=== PATIENT | female | born 1965 | race Caucasian/White ===

== ENCOUNTER → 2016-08-12 | Outpatient (CLI) | payer BC ==
[~2016-08-12] MED LIST: A-C CARBAMIDE PO; CHOL10003 PO; CRAN1TAB PO; DOXY-233 PO; DULO30CA PO; ESTR1PAT TD; ESTRADIOL CREAM; FAMO-119 PO; FLUD0.1T7 PO; FURO20TA4 PO; HYDR200T46 PO; INSASP10V; LORA1TAB PO; MAGN400C PO; MAGNESIUM PO; METF500T8 PO; METHYL B-12 PO; MIDODRINE 5 MG; MINO100C6 PO; MULT-223 PO; NATURE THROID 32.5 MG PO; NYST1000 PO; ONDA8TAB13 PO; POLY119P5 PO; PREGNENOLONE PO; PROBIOTIC1 EACH PO; PROG100C6 PO; PROP10TA8 PO; TESTOSTERONE; THYROID 32.5 MG PO; TRAM50TA2 PO; UBID1CAP51 PO; UBID200C PO; ZINC PO; [UNRECOGNIZED DRUG - OTHER] PO; [UNRECOGNIZED DRUG - OTHER] PO; [UNRECOGNIZED DRUG - OTHER] PO; [UNRECOGNIZED DRUG - OTHER] PO
--- NOTE | 2016-08-12 12:14 | Diagnostic Imaging Report ---
INDICATION: Neck pain. EXAMINATION: Cervical spine. FINDINGS: AP and lateral views of the cervical spine show normal vertebral body height and alignment. The disc spaces are well-maintained. There is no prevertebral soft tissue swelling. IMPRESSION: Negative cervical spine. Dictated by: Dictated on workstation # [id number]
== END ==
LOC: RAD 11:47
PROVIDERS: ATTEND Nurse Practitioner Family
DX: M54.2 Cervicalgia (principal)
CPT/HCPCS: 72040

== ENCOUNTER → 2016-08-30 | Outpatient (CLI) | payer BC ==
--- NOTE | 2016-08-30 16:20 | Diagnostic Imaging Report ---
PROCEDURE: MR imaging cervical spine without contrast. TECHNIQUE: Multiplanar, multisequence MR imaging of the cervical spine was performed without contrast. INDICATION: Neck pain and bilateral arm numbness. FINDINGS: There is straightening of the cervical spine. The alignment of the posterior spinal line is satisfactory. The vertebral body heights are preserved. The discs demonstrate mild desiccation at all levels. There is no significant disc height loss at any level. The bone marrow signal demonstrates nonspecific minimal heterogeneity with no discrete mass. The spinal cord has normal caliber, contour, and signal. There is a projection of the cerebellar tonsils below the level of the foramen magnum of about 5 mm, compatible with cerebellar tonsillar ectopia. This does not appear to be associated with mass effect on the brainstem or upper cervical spine. C2-C3: No disc herniation, no spinal canal, or foramina stenosis. C3-C4: No disc herniation, and no spinal canal stenosis. The foramina demonstrate mild narrowing only on the right side. C4-C5: There is no disc herniation. No spinal canal or foramina stenosis. C5-C6: There is a disc spur complex without spinal canal stenosis. The foramina demonstrates mild narrowing on the left and no significant narrowing on the right side. C6-C7: There is a left paracentral disc spur complex resulting in mild narrowing of the AP dimension of the left side of the spinal canal and resulting in minimal impression upon the anterior margin of the spinal cord in the left side. There is no foramina stenosis. C7-T1: No disc herniation, and no spinal canal stenosis. There is mild foramina stenosis only on the left side. IMPRESSION: Straightening of the lordotic curvature of the cervical spine could be secondary to muscle spasm. Relatively mild degenerative changes with no high-grade spinal canal stenosis or cord compression. Dictated by: Dictated on workstation # [id number]
== END ==
LOC: RAD 15:14
PROVIDERS: ATTEND Nurse Practitioner Family
DX: M54.2 Cervicalgia (principal); R20.0 Anesthesia of skin
CPT/HCPCS: 72141

== ENCOUNTER → 2016-09-23 | Outpatient (CLI) | payer BC ==
--- NOTE | 2016-09-26 19:01 | Diagnostic Imaging Report ---
Bilateral screening mammogram. The current study was also evaluated with a Computer Aided Detection (CAD) system. INDICATION: Screening. No current complaints stated on the questionnaire. COMPARISON: 09/21/14 FINDINGS: The breasts are composed of heterogeneously dense parenchyma which may decrease mammographic sensitivity. There is no mass, architectural distortion or suspicious cluster of calcification. Allowing for technique and positional differences, no suspicious change is seen. IMPRESSION: No significant change. ACR BI-RADS Category 2: Benign findings. Result letter will be mailed to the patient. Note: At least 10% of breast cancer is not imaged by mammography. Dictated by: Dictated on workstation # [id number]
== END ==
LOC: RAD 10:02
PROVIDERS: ATTEND Nurse Practitioner Family
DX: Z12.31 Encounter for screening mammogram for malignant neoplasm of breast (principal)
CPT/HCPCS: 77067

== ENCOUNTER 2016-10-03 05:33 | Outpatient (CLI) | payer BC ==
[~2016-10-03] VITALS: Ht 175.3 cm; Wt 82.2 kg
[2016-10-03] MEDS ORDERED: MAGN400T39 PO (10:36)
[2016-10-03] MEDS ORDERED: PYRI100T2 PO (10:36)
[2016-10-03] MEDS ORDERED: GING550C4 PO (10:36)
[2016-10-03] MEDS ORDERED: ALPH200C2 PO (10:36)
[2016-10-03] MEDS ORDERED: [UNRECOGNIZED DRUG - CODE] PO (10:36)
[2016-10-03] MEDS ORDERED: THYR32.57 PO (10:36)
[2016-10-03] MEDS ORDERED: CHOL10003 PO (10:36)
[2016-10-03] MEDS ORDERED: ACET500C8 PO (10:36)
[2016-10-03] MEDS ORDERED: HYDR200T PO (10:36)
[2016-10-03] MEDS ORDERED: VITA400C58 PO (10:36)
[2016-10-03] MEDS ORDERED: TEST2.5G6 TD (10:36)
== END 2016-10-03 12:32 ==
LOC: PREOP 05:33
PROVIDERS: ATTEND Surgery
DX: Z01.818 Encounter for other preprocedural examination (principal); Z12.11 Encounter for screening for malignant neoplasm of colon; K64.9 Unspecified hemorrhoids

== ENCOUNTER 2016-10-06 06:11 | Day surgery (SDC) | payer BC ==
[~2016-10-06] VITALS: Ht 175.3 cm; Wt 82.2 kg
[~2016-10-06 06:11] MED LIST changes: +ACET500C8 PO; +ALPH200C2 PO; +GING550C4 PO; +HYDR200T PO; +MAGN400T39 PO; +PYRI100T2 PO; +TEST2.5G6 TD; +THYR32.57 PO; +VITA400C58 PO; +[UNRECOGNIZED DRUG - CODE] PO
[2016-10-06] MEDS ORDERED: fentaNYL INJECTION 100 MCG/2 ML AMP ONE (06:45)
[2016-10-06] MEDS ORDERED: LIDOCAINE PF 2% 5 ML (XYLOCAINE) VIAL ONE (06:45)
[2016-10-06] MEDS ORDERED: ONDANSETRON 4 MG/2 ML (SDV) Z0FRAN ONE ×2 (06:45→10:14)
[2016-10-06] MEDS ORDERED: proPOfol 200 MG/20 ML (DIPRIVAN) VIAL IV ONE ×2 (06:45→08:32)
[2016-10-06] MEDS ORDERED: LACTATED RINGERS 1,000 ML IV ONE ×2 (06:46→10:25)
[2016-10-06] MEDS ORDERED: SEVOFLURANE (ULTANE) 15 ML INHAL SOLN ONE ×5 (06:46→09:33)
[2016-10-06] MEDS ORDERED: MIDAZOLAM 2 MG/2 ML (VERSED) VIAL ONE ×2 (06:47→08:31)
[2016-10-06] MEDS ORDERED: ceFAZolin 2 GM/NS 50 ML IV ONE (07:00)
[2016-10-06] MEDS ORDERED: CATHETER FLUSH 10 ML SYR IV PRN (07:00)
[2016-10-06 07:18] VITALS: BP 120/82
[2016-10-06] MEDS ORDERED: LIDOCAINE 1% INJ 20 ML (XYLOCAINE) VIAL ONE (07:25)
[2016-10-06] MEDS ORDERED: BUPIVACAINE 0.5% 30 ML (SENSORCAINE) VIAL ONE (07:25)
[2016-10-06] MEDS: LACTATED RINGERS 1,000 ML IV PRN ×2 (07:28→10:30)
[2016-10-06] MEDS ORDERED: PHENYLEPHRINE 100 MCG/ML 10 ML (ANESTHESIA) SYR ONE (09:15)
[2016-10-06] MEDS ORDERED: DOCU-143 PO ×2 (09:38→11:23)
[2016-10-06] MEDS ORDERED: HYDR-3812 PO (09:38)
--- NOTE | 2016-10-06 09:39 | Progress Note-Post Operative ---
Post-Operative Progess Note Surgeon (s)/Drive Man (s) Surgeon JOHANNA SALDANA DO Drive Man: na Pre-Operative Diagnosis HEMORRHOIDS Post-Operative Diagnosis normal colonoscopy, external hemorroids Procedure & Operative Findings Date of Procedure 10/06/16 Procedure Performed/Findings colonoscopy, hemorrhoidectomy external x 4 Anesthesia Type per bed operator Estimated Blood Loss Estimated blood loss (mL): minimal Specimens/Packing Specimens Removed external hemorrhoids JOHANNA SALDANA DO Oct 06, 2016 9:39 am
--- NOTE | 2016-10-06 09:44 | Discharge Inst-Simple/Standard ---
Discharge Inst-Standard Patient Instructions/Follow Up Plan of Care/Instructions/FU: Follow up with Dr. Isaac in 2 weeks Take medication as directed. Sitz baths daily. Keep stool loose. shower after bowel movement. Activity as Tolerated: No Discharge Diet: No Restrictions Other Inst to Patient Follow up Appt: Make appointment for 2 weeks. Instructions: No lifting greater than 10 pounds. No strenuous activity. May shower in 24 hours, sitz baths Use incentive spirometer at home as directed. No Smoking Skin/Wound Care: Keep area clean. Symptoms to Report: Appetite Changes, Extremity Discoloration, Numbness/Tingling, Swelling Increased , Bleeding Excessive, Eyesight Changes, Pain Increased, Urine Color Change, Constipation(Persistent), Fever over 101 degree F, Pain/Pressure in chest, Urinating Difficulty, Cough Up/Vomit Blood, Heart Beat Irreg/Pounding, Pain/ Pressure in jaw, Vaginal Bleeding Increase, Cramps in feet or legs, Lightheadedness, Pain/Pressure in shoulder, Diarrhea(Persistent), Memory Changes Suddenly, Questions/Concerns, Weight gain consecutive days, Dizziness/ Fainting, Nausea/Vomiting, Shortness of Breath, Weight gain over 2 pounds If questions or concerns contact your physician Or seek help at emergency department. KEN DAVILA APRN Oct 06, 2016 09:44
[2016-10-06] MEDS ORDERED: morphine INJ 10 MG/ML 1ML (SYR OR VIAL) IVP PRN ×2 (09:45→11:30)
[2016-10-06] MEDS ORDERED: ONDANSETRON 4 MG/2 ML (SDV) Z0FRAN IVP ONE (10:30)
[2016-10-06 10:40] VITALS: BP 123/81
[2016-10-06 11:10] VITALS: BP 119/71
--- NOTE | 2016-10-06 11:30 | OPERATIVE REPORT ---
PROCEDURE PHYSICIAN: JOHANNA SALDANA DATE OF PROCEDURE: 10/06/2016 PREOPERATIVE DIAGNOSIS: 1. Screening colonoscopy. 2. Hemorrhoids. POSTOPERATIVE DIAGNOSIS: 1. Normal colon. 2. External hemorrhoids. PROCEDURE: 1. Colonoscopy. 2. External hemorrhoidectomy x4. SURGEON: Marlin. ANESTHESIA: Per COMPRESSION MOLDING MACHINE OPERATOR. ESTIMATED BLOOD LOSS: Minimal. COMPLICATIONS: None. INDICATIONS: The patient is a 51-year-old female. It was discussed the risks and benefits of colonoscopy and hemorrhoidectomy. The patient has some external hemorrhoids that are causing discomfort and causing difficultly to keep perianal region cleaned. She understands the risks and benefits of the procedure and wished to proceed with the procedure. Consent was signed on the chart. PROCEDURE: The patient was taken to the operating suite. Timeout was performed. Digital rectal exam was performed noting external hemorrhoids. There were no other palpable polyps, masses or ulcerations. The scope was inserted in the rectum, advanced all of the way to the cecum with minimal difficulty. Prep was adequate. The scope was then slowly retracted back. There were no polyps, masses, ulcerations visualized within the cecum, ascending, transverse, descending and sigmoid colon. In the rectum, the scope was attempted to be retroflexed but it was very narrow; therefore, multiple insertions and retractions were made noting no other pathology. The scope was then slowly retracted until completely removed. The patient was then prepped and draped in a sterile fashion for hemorrhoidectomy. The external hemorrhoidal tissue was slightly elevated with graspers. Local anesthetic of 0.5% Marcaine and 1% lidocaine at 50:50 ratio was used to anesthetize the area. Using a Harmonic focus, the hemorrhoids were amputated at the base. The skin was then closed using 3-0 Vicryl. The area was then washed and dried. Gelfoam and Vaseline gauze packing was inserted in the anus and sterile bandage was applied. The patient tolerated the procedure well without any complications. She was taken to recovery room in stable condition. Job ID: [id number] Dictated Date: 10/06/2016 09:42:44 Embroidery Specialist Date: 10/06/2016 11:15:05 / avis
[2016-10-06 11:40] VITALS: BP 111/62
--- OUTSIDE RECORDS SUMMARY | 2016-10-13 02:33 | XMS REPORT | Continuity of Care Document ---
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 ANDREW FRANZ ELECTRICAL INSTALLATION SUPERVISOR Ot 724.4 LUMBOSACRAL NEURITIS NOS 09/24/2015 ANDREW FRANZ ELECTRICAL INSTALLATION SUPERVISOR Ot 625.9 FEM GENITAL SYMPTOMS NOS 09/24/2015 JOHANNA SALDANA DO Ot V72.84 EXAM PRE-OPERATIVE NOS 09/24/2015 ELIA FRANZ DO Ot V76.12 OTH SCREEN MAMMO-MALIGN NEOPLASM OF DMITRY 09/24/2015 ANDREW FRANZ ELECTRICAL INSTALLATION SUPERVISOR Ot 473.9 CHRONIC SINUSITIS NOS 09/24/2015 ANDREW FRANZ ELECTRICAL INSTALLATION SUPERVISOR Ot 787.91 DIARRHEA 09/24/2015 ANDREW FRANZ ELECTRICAL INSTALLATION SUPERVISOR Ot Z12.31 ENCNTR SCREEN MAMMOGRAM FOR MALIGNANT NE 09/25/2015 ANDREW FRANZ ELECTRICAL INSTALLATION SUPERVISOR Ot Z12.31 ENCNTR SCREEN MAMMOGRAM FOR MALIGNANT NE 10/15/2015 ANDREW FRANZ ELECTRICAL INSTALLATION SUPERVISOR Ot Z12.31 ENCNTR SCREEN MAMMOGRAM FOR MALIGNANT NE 12/29/2015 Ot 611.72 LUMP OR MASS IN BREAST 12/29/2015 Ot V76.12 OTH SCREEN MAMMO-MALIGN NEOPLASM OF DMITRY 12/29/2015 Ot 611.72 LUMP OR MASS IN BREAST 12/29/2015 Ot 793.80 UNSPEC ABNORMAL MAMMOGRAM 12/29/2015 Ot 729.5 PAIN IN LIMB 12/29/2015 Ot 793.89 OTH (ABN) FINDINGS ON RADIOLOGICAL EXAMI 12/29/2015 Ot 276.51 DEHYDRATION 12/29/2015 Ot 379.91 PAIN IN OR AROUND EYE 12/29/2015 Ot 781.2 ABNORMALITY OF GAIT 12/29/2015 Ot 784.0 HEADACHE 12/29/2015 Ot 088.81 LYME DISEASE 12/29/2015 Ot 401.9 HYPERTENSION NOS 12/29/2015 Ot V72.63 PRE-PROCEDURAL LABORATORY EXAMINATION 12/29/2015 Ot V72.81 [id number] CARDIOVASCULAR 12/29/2015 Ot V72.83 EXAM PRE-OPERATIVE NEC 12/29/2015 Ot V74.8 SCREEN-BACTERIAL DIS NEC 12/29/2015 Ot 088.81 LYME DISEASE 12/29/2015 Ot V58.69 OT MED,LT,CURRENT USE 12/29/2015 Ot 088.81 LYME DISEASE 12/29/2015 Ot V58.69 OT MED,LT,CURRENT USE 12/29/2015 Ot 088.81 LYME DISEASE 12/29/2015 ELIA FRANZ DO Ot 938 FOREIGN BODY GI NOS 12/29/2015 ELIA FRANZ DO Ot E000.8 OTHER EXTERNAL CAUSE STATUS 12/29/2015 ELIA FRANZ DO Ot E849.0 ACCIDENT IN HOME 12/29/2015 ELIA FRANZ DO Ot E915 FB ENTERING OTH ORIFICE 12/29/2015 ELIA FRANZ DO Ot 936 FB IN INTESTINE COLON 12/29/2015 ELIA FRANZ DO Ot E000.8 OTHER EXTERNAL CAUSE STATUS 12/29/2015 ELIA FRANZ DO Ot E849.0 ACCIDENT IN HOME 12/29/2015 ELIA FRANZ DO Ot E915 FB ENTERING OTH ORIFICE 12/29/2015 ANDREW HOOPER ELECTRICAL INSTALLATION SUPERVISOR Ot 936 FB IN INTESTINE COLON 12/29/2015 ANDREW HOOPER A ELECTRICAL INSTALLATION SUPERVISOR Ot E000.8 OTHER EXTERNAL CAUSE STATUS 12/29/2015 ANDREW HOOPER A ELECTRICAL INSTALLATION SUPERVISOR Ot E849.0 ACCIDENT IN HOME 12/29/2015 ANDREW HOOPER ELECTRICAL INSTALLATION SUPERVISOR Ot E915 FB ENTERING OTH ORIFICE 12/29/2015 ELIA FRANZ DO Ot 937 FOREIGN BODY ANUS/RECTUM 12/29/2015 ELIA FRANZ DO Ot E000.8 OTHER EXTERNAL CAUSE STATUS 12/29/2015 ELIA FRANZ DO Ot E849.0 ACCIDENT IN HOME 12/29/2015 ELIA FRANZ DO Ot E915 FB ENTERING OTH ORIFICE 12/29/2015 ELIA FRANZ DO Ot 790.7 BACTEREMIA 12/29/2015 ELIA FRANZ DO Ot 790.7 BACTEREMIA 12/29/2015 VAN ANDREW Ceron APRN Ot 790.7 BACTEREMIA 12/29/2015 ELIA FRANZ DO Ot 790.7 BACTEREMIA 12/29/2015 ANDREW FRANZ ELECTRICAL INSTALLATION SUPERVISOR Ot 790.7 BACTEREMIA 12/29/2015 Ot 790.7 BACTEREMIA 12/29/2015 Ot 790.7 BACTEREMIA 12/29/2015 KARLI FRANZIA L ELECTRICAL INSTALLATION SUPERVISOR Ot V76.12 OT SCREEN MAMMO-MALIGN NEOPLASM OF DMITRY 12/29/2015 KARLI FRANZIA L ELECTRICAL INSTALLATION SUPERVISOR Ot 719.45 JOINT PAIN-PELVIS 12/29/2015 KARLI FRANZIA L ELECTRICAL INSTALLATION SUPERVISOR Ot 722.4 CERVICAL DISC DEGEN 12/29/2015 KARLI FRANZIA L ELECTRICAL INSTALLATION SUPERVISOR Ot 724.2 LUMBAGO 12/29/2015 KARLI FRANZIA L ELECTRICAL INSTALLATION SUPERVISOR Ot 724.4 LUMBOSACRAL NEURITIS NOS 12/29/2015 ANDREW FRANZ L ELECTRICAL INSTALLATION SUPERVISOR Ot 625.9 FEM GENITAL SYMPTOMS NOS 12/29/2015 JOHANNA SALDANA DO Ot V72.84 EXAM PRE-OPERATIVE NOS 12/29/2015 ELIA FRANZ DO Ot V76.12 OTH SCREEN MAMMO-MALIGN NEOPLASM OF DMITRY 12/29/2015 ANDREW FRANZ ELECTRICAL INSTALLATION SUPERVISOR Ot 473.9 CHRONIC SINUSITIS NOS 12/29/2015 OSEI ANDREW Ivonne ELECTRICAL INSTALLATION SUPERVISOR Ot 787.91 DIARRHEA 12/29/2015 OSEI ANDREW L ELECTRICAL INSTALLATION SUPERVISOR Ot Z12.31 ENCNTR SCREEN MAMMOGRAM FOR MALIGNANT NE 12/30/2015 Ot 611.72 LUMP OR MASS IN BREAST 12/30/2015 Ot V76.12 OTH SCREEN MAMMO-MALIGN NEOPLASM OF DMITRY 12/30/2015 Ot 611.72 LUMP OR MASS IN BREAST 12/30/2015 Ot 793.80 UNSPEC ABNORMAL MAMMOGRAM 12/30/2015 Ot 729.5 PAIN IN LIMB 12/30/2015 Ot 793.89 OTH (ABN) FINDINGS ON RADIOLOGICAL EXAMI 12/30/2015 Ot 276.51 DEHYDRATION 12/30/2015 Ot 379.91 PAIN IN OR AROUND EYE 12/30/2015 Ot 781.2 ABNORMALITY OF GAIT 12/30/2015 Ot 784.0 HEADACHE 12/30/2015 Ot 088.81 LYME DISEASE 12/30/2015 Ot 401.9 HYPERTENSION NOS 12/30/2015 Ot V72.63 PRE-PROCEDURAL LABORATORY EXAMINATION 12/30/2015 Ot V72.81 WCMC-[id number]-PUNCDPMAZ CARDIOVASCULAR 12/30/2015 Ot V72.83 EXAM PRE-OPERATIVE NEC 12/30/2015 Ot V74.8 SCREEN-BACTERIAL DIS NEC 12/30/2015 Ot 088.81 LYME DISEASE 12/30/2015 Ot V58.69 OTH MED,LT,CURRENT USE 12/30/2015 Ot 088.81 LYME DISEASE 12/30/2015 Ot V58.69 OTH MED,LT,CURRENT USE 12/30/2015 Ot 088.81 LYME DISEASE 12/30/2015 ELIA FRANZ DO Ot 938 FOREIGN BODY GI NOS 12/30/2015 EILA FRANZ DO Ot E000.8 OTHER EXTERNAL CAUSE STATUS 12/30/2015 ELIA FRANZ DO Ot E849.0 ACCIDENT IN HOME 12/30/2015 ELIA FRANZ DO Ot E915 FB ENTERING OTH ORIFICE 12/30/2015 ELIA FRANZ DO Ot 936 FB IN INTESTINE COLON 12/30/2015 ELIA FRANZ DO Ot E000.8 OTHER EXTERNAL CAUSE STATUS 12/30/2015 ELIA FRANZ DO Ot E849.0 ACCIDENT IN HOME 12/30/2015 ELIA FRANZ DO Ot E915 FB ENTERING OTH ORIFICE 12/30/2015 ANDREW HOOPER ELECTRICAL INSTALLATION SUPERVISOR Ot 936 FB IN INTESTINE COLON 12/30/2015 KARLI HOOPERIA A ELECTRICAL INSTALLATION SUPERVISOR Ot E000.8 OTHER EXTERNAL CAUSE STATUS 12/30/2015 ANDREW HOOPER ELECTRICAL INSTALLATION SUPERVISOR Ot E849.0 ACCIDENT IN HOME 12/30/2015 RUFUSANDREW CARRANZA OSITO Ot E915 FB ENTERING OTH ORIFICE 12/30/2015 ELIA FRANZ DO Ot 937 FOREIGN BODY ANUS/RECTUM 12/30/2015 ELIA FRANZ DO Ot E000.8 OTHER EXTERNAL CAUSE STATUS 12/30/2015 ELIA FRANZ DO Ot E849.0 ACCIDENT IN HOME 12/30/2015 ELIA FRANZ DO Ot E915 FB ENTERING OTH ORIFICE 12/30/2015 ELIA FRANZ DO Ot 790.7 BACTEREMIA 12/30/2015 ELIA FRANZ DO Ot 790.7 BACTEREMIA 12/30/2015 ANDREW ARAUJO CARNIVAL WORKER Ot 790.7 BACTEREMIA 12/30/2015 ELIA FRANZ DO Ot 790.7 BACTEREMIA 12/30/2015 ANDREW FRANZ ELECTRICAL INSTALLATION SUPERVISOR Ot 790.7 BACTEREMIA 12/30/2015 Ot 790.7 BACTEREMIA 12/30/2015 Ot 790.7 BACTEREMIA 12/30/2015 KARLI FRANZIA L ELECTRICAL INSTALLATION SUPERVISOR Ot V76.12 OTH SCREEN MAMMO-MALIGN NEOPLASM OF DMITRY 12/30/2015 ANDREW FRANZ ELECTRICAL INSTALLATION SUPERVISOR Ot 719.45 JOINT PAIN-PELVIS 12/30/2015 ANDREW FRANZ L ELECTRICAL INSTALLATION SUPERVISOR Ot 722.4 CERVICAL DISC DEGEN 12/30/2015 ANDREW FRANZ L ELECTRICAL INSTALLATION SUPERVISOR Ot 724.2 LUMBAGO 12/30/2015 ANDREW FRANZ L ELECTRICAL INSTALLATION SUPERVISOR Ot 724.4 LUMBOSACRAL NEURITIS NOS 12/30/2015 ANDREW FRANZ ELECTRICAL INSTALLATION SUPERVISOR Ot 625.9 FEM GENITAL SYMPTOMS NOS 12/30/2015 JOHANNA SALDANA DO Martin Ot V72.84 EXAM PRE-OPERATIVE NOS 12/30/2015 ELIA FRANZ DO Ot V76.12 OTH SCREEN MAMMO-MALIGN NEOPLASM OF DMITRY 12/30/2015 ANDREW FRANZ ELECTRICAL INSTALLATION SUPERVISOR Ot 473.9 CHRONIC SINUSITIS NOS 12/30/2015 ANDREW FRANZ ELECTRICAL INSTALLATION SUPERVISOR Ot 787.91 DIARRHEA 12/30/2015 ANDREW FRANZ ELECTRICAL INSTALLATION SUPERVISOR Ot Z12.31 ENCNTR SCREEN MAMMOGRAM FOR MALIGNANT NE 08/12/2016 Ot 729.5 PAIN IN LIMB 08/12/2016 Ot 793.89 OTH (ABN) FINDINGS ON RADIOLOGICAL EXAMI 08/12/2016 Ot 276.51 DEHYDRATION 08/12/2016 Ot 379.91 PAIN IN OR AROUND EYE 08/12/2016 Ot 781.2 ABNORMALITY OF GAIT 08/12/2016 Ot 784.0 HEADACHE 08/12/2016 Ot 088.81 LYME DISEASE 08/12/2016 Ot 401.9 HYPERTENSION NOS 08/12/2016 Ot V72.63 PRE-PROCEDURAL LABORATORY EXAMINATION 08/12/2016 Ot V72.81 UBAU-[id number]-IIJRQQMTM CARDIOVASCULAR 08/12/2016 Ot V72.83 EXAM PRE-OPERATIVE NEC 08/12/2016 Ot V74.8 SCREEN-BACTERIAL DIS NEC 08/12/2016 Ot 088.81 LYME DISEASE 08/12/2016 Ot V58.69 OT MED,LT,CURRENT USE 08/12/2016 Ot 088.81 LYME DISEASE 08/12/2016 Ot V58.69 OT MED,LT,CURRENT USE 08/12/2016 Ot 088.81 LYME DISEASE 08/12/2016 ELIA FRANZ DO Ot 938 FOREIGN BODY GI NOS 08/12/2016 ELIA FRANZ DO Ot E000.8 OTHER EXTERNAL CAUSE STATUS 08/12/2016 ELIA FRANZ DO Ot E849.0 ACCIDENT IN HOME 08/12/2016 ELIA FRANZ DO Ot E915 FB ENTERING OTH ORIFICE 08/12/2016 ELIA FRANZ DO Ot 936 FB IN INTESTINE COLON 08/12/2016 ELIA FRANZ DO Ot E000.8 OTHER EXTERNAL CAUSE STATUS 08/12/2016 ELIA FRANZ DO Ot E849.0 ACCIDENT IN HOME 08/12/2016 ELIA FRANZ DO Ot E915 FB ENTERING OTH ORIFICE 08/12/2016 ANDREW HOOPER ELECTRICAL INSTALLATION SUPERVISOR Ot 936 FB IN INTESTINE COLON 08/12/2016 ANDREW HOOPER ELECTRICAL INSTALLATION SUPERVISOR Ot E000.8 OTHER EXTERNAL CAUSE STATUS 08/12/2016 ANDREW HOOPER OSITO Ot E849.0 ACCIDENT IN HOME 08/12/2016 ANDREW HOOPER OSITO Ot E915 FB ENTERING OTH ORIFICE 08/12/2016 ELIA FRANZ DO Ot 937 FOREIGN BODY ANUS/RECTUM 08/12/2016 ELIA FRANZ DO Ot E000.8 OTHER EXTERNAL CAUSE STATUS 08/12/2016 ELIA FRANZ DO Ot E849.0 ACCIDENT IN HOME 08/12/2016 ELIA FRANZ DO Ot E915 FB ENTERING OTH ORIFICE 08/12/2016 ELIA FRANZ DO Ot 790.7 BACTEREMIA 08/12/2016 ELIA FRANZ DO Ot 790.7 BACTEREMIA 08/12/2016 RIDPRASHANT ANDREW Ceron CARNIVAL WORKER Ot 790.7 BACTEREMIA 08/12/2016 ELIA FRANZ DO Ot 790.7 BACTEREMIA 08/12/2016 ANDREW FRANZ ELECTRICAL INSTALLATION SUPERVISOR Ot 790.7 BACTEREMIA 08/12/2016 Ot 790.7 BACTEREMIA 08/12/2016 Ot 790.7 BACTEREMIA 08/12/2016 ANDREW FRANZ ELECTRICAL INSTALLATION SUPERVISOR Ot V76.12 OT SCREEN MAMMO-MALIGN NEOPLASM OF DMITRY 08/12/2016 ANDREW FRANZ ELECTRICAL INSTALLATION SUPERVISOR Ot 719.45 JOINT PAIN-PELVIS 08/12/2016 ANDREW FRANZ ELECTRICAL INSTALLATION SUPERVISOR Ot 722.4 CERVICAL DISC DEGEN 08/12/2016 ANDREW FRANZ ELECTRICAL INSTALLATION SUPERVISOR Ot 724.2 LUMBAGO 08/12/2016 ANDREW FRANZ ELECTRICAL INSTALLATION SUPERVISOR Ot 724.4 LUMBOSACRAL NEURITIS NOS 08/12/2016 ANDREW RFANZ ELECTRICAL INSTALLATION SUPERVISOR Ot 625.9 FEM GENITAL SYMPTOMS NOS 08/12/2016 JOHANNA SALDANA DO Ot V72.84 EXAM PRE-OPERATIVE NOS 08/12/2016 ELIA FRANZ DO Ot V76.12 OTH SCREEN MAMMO-MALIGN NEOPLASM OF DMITRY 08/12/2016 FRANZANDREW RODRIGUES ELECTRICAL INSTALLATION SUPERVISOR Ot 473.9 CHRONIC SINUSITIS NOS 08/12/2016 FRANZANDREW RODRIGUES Ivonne ELECTRICAL INSTALLATION SUPERVISOR Ot 787.91 DIARRHEA 08/12/2016 FRANZ, ANDREW L ELECTRICAL INSTALLATION SUPERVISOR Ot Z12.31 ENCNTR SCREEN MAMMOGRAM FOR MALIGNANT NE 08/31/2016 FRANZJEANANDREW L ELECTRICAL INSTALLATION SUPERVISOR Ot M54.2 CERVICALGIA 09/21/2016 OSEI ANDREW Ivonne ELECTRICAL INSTALLATION SUPERVISOR Ot M54.2 CERVICALGIA 09/21/2016 ANDREW FRANZ ELECTRICAL INSTALLATION SUPERVISOR Ot R20.0 ANESTHESIA OF SKIN 10/03/2016 Ot 088.81 LYME DISEASE 10/03/2016 Ot V58.69 OTH MED,LT,CURRENT USE 10/03/2016 Ot 088.81 LYME DISEASE 10/03/2016 Ot 790.7 BACTEREMIA 10/03/2016 Ot 790.7 BACTEREMIA 10/06/2016 JOHANNA SALDANA DO Ot K64.4 RESIDUAL HEMORRHOIDAL SKIN TAGS 10/06/2016 JOHANNA SALDANA DO Ot Z12.11 ENCOUNTER FOR SCREENING FOR MALIGNANT NE 10/11/2016 JOHANNA SALDANA DO Ot A69.20 LYME DISEASE, UNSPECIFIED 10/11/2016 JOHANNA SALDANA DO Ot E03.9 HYPOTHYROIDISM, UNSPECIFIED 10/11/2016 JOHANNA SALDANA DO Ot E10.40 TYPE 1 DIABETES MELLITUS WITH DIABETIC N 10/11/2016 JOHANNA SALDANA DO Ot F41.9 ANXIETY DISORDER, UNSPECIFIED 10/11/2016 JOHANNA SALDANA DO Ot K64.4 RESIDUAL HEMORRHOIDAL SKIN TAGS 10/11/2016 JOHANNA SALDANA DO Ot Z12.11 ENCOUNTER FOR SCREENING FOR MALIGNANT NE 10/11/2016 JOHANNA SALDANA DO Ot Z79.899 OTHER HALF-WAY (CURRENT) DRUG THERAPY Procedures Results Test Result Range Methicillin resistant Staphylococcus aureus (MRSA) screening culture - 06:45 Methicillin resistant Staphylococcus aureus (MRSA) screening culture NEG NRG Capillary blood glucose measurement by glucometer (mass/volume) - 10/06/16 09: 43 Capillary blood glucose measurement by glucometer (mass/volume) 75 mg/dL 70-110 Capillary blood glucose measurement by glucometer (mass/volume) - 10/06/16 10: 25 Capillary blood glucose measurement by glucometer (mass/volume) 82 mg/dL 70-110 Capillary blood glucose measurement by glucometer (mass/volume) - 10/06/16 10: 42 Capillary blood glucose measurement by glucometer (mass/volume) 93 mg/dL 70-110 Encounters ACCT No. Visit Date/Time Discharge Status Pt. Type Provider Facility Loc./Unit Complaint [id number] 10/06/2016 06:11:00 2016 11:54:00 DIS Outpatient JOHANNA SALDANA DO Via [facility] HEMORRHOIDS; SCREENING [id number] 10/03/2016 05:33:00 2016 12:32:00 DIS Outpatient JOHANNA SALDANA DO Via [facility] PREOP HEMORRHOIDS; SCREENING [id number] 08/04/2015 13:00:00 2015 16:09:00 DIS Emergency JL PERDOMO [facility] ER L SIDED ABD PAIN [id number] 12/10/2014 17:07:00 2014 23:59:59 CLS Outpatient ANDREW FRANZ ELECTRICAL INSTALLATION SUPERVISOR [facility] LAB SEVERE DIARRHEA [id number] 10/24/2014 13:06:00 2014 23:59:59 CLS Outpatient ANDREW FRANZ ELECTRICAL INSTALLATION SUPERVISOR [facility] RAD SINUSITIS [id number] 09/02/2014 13:52:00 2014 23:59:59 CLS Outpatient ELIA FRANZ DO [facility] RAD SCREENING [id number] 03/24/2014 10:40:00 2014 10:08:00 DIS Inpatient ELIA FRANZ DO [facility] 4TH F/U [id number] 03/10/2014 06:07:00 2013 23:59:59 CLS Outpatient JOHANNA SALDANA DO [facility] PREOP ABD PAIN [id number] 01/13/2014 15:15:00 2013 23:59:59 CLS Outpatient ANDREW FRANZ ELECTRICAL INSTALLATION SUPERVISOR [facility] RAD PELVIC PAIN [id number] 11/15/2013 14:07:00 2013 23:59:59 CLS Outpatient ANDREW FRANZ ELECTRICAL INSTALLATION SUPERVISOR [facility] RAD DDD,LUMBALGIA WITH RADIOGRAPHY [id number] 10/30/2013 11:01:00 2013 23:59:59 CLS Outpatient FRANZANDREW WINTERS ELECTRICAL INSTALLATION SUPERVISOR [facility] RAD BILAT HIP PAIN,UPPER EXT PARESTHESIA [id number] 08/30/2013 07:04:00 2013 23:59:59 CLS Outpatient ANDREW FRANZ ELECTRICAL INSTALLATION SUPERVISOR [facility] RAD SCREENING [id number] 03/04/2013 14:36:00 2013 00:01:00 DIS Outpatient FRANZANDREW WINTERS L ELECTRICAL INSTALLATION SUPERVISOR [facility] LAB BACTEREMIA [id number] 02/15/2013 14:08:00 2013 00:01:00 DIS Outpatient ANDREW FRANZ ELECTRICAL INSTALLATION SUPERVISOR [facility] BAOTEREMIA [id number] 04/02/2013 12:56:00 2013 23:59:59 CLS Outpatient FRANZKARLI WINTERSIA L ELECTRICAL INSTALLATION SUPERVISOR [facility] BACTEREMIA [id number] 03/16/2013 17:44:00 2012 23:59:59 CLS Outpatient FRANZ ELIA SMART [facility] BACTEREMIA [id number] 03/03/2013 20:36:00 2012 00:05:00 DIS Emergency BRODIE RICE, SOLANGE Salazar [facility] ER SWOLLEN LYMPH NODES;HEADACHE [id number] 02/21/2013 16:13:00 2012 23:59:59 CLS Outpatient VAN ANDREW Ceron CARNIVAL WORKER [facility] LAB BACTEREMIA [id number] 02/15/2013 14:03:00 2012 23:59:59 CLS Outpatient OSEI SMART ELIA Hosea [facility] BACTEREMIA [id number] 02/13/2013 13:41:00 2012 23:59:59 CLS Outpatient OSEI SMART ELIA Jc [facility] LAB BACTEREMIA [id number] 01/21/2013 15:59:00 2012 23:59:59 CLS Outpatient OSEI SMART ELIA Hosea [facility] RAD SWALLOWED DENTAL BRIDGE [id number] 01/18/2013 16:35:00 2012 23:59:59 CLS Outpatient ANDREW HOOPER ELECTRICAL INSTALLATION SUPERVISOR [facility] RAD SWALLOWED DENTAL BRIDGE [id number] 01/16/2013 16:15:00 2012 23:59:59 CLS Outpatient ELIA FRANZ DO [facility] RAD FORIEGN BODY [id number] 01/14/2013 16:13:00 2012 23:59:59 CLS Outpatient OSEI SMART ELIA Hosea [facility] RAD FOREIGN BODY IN BODY [id number] 12/17/2012 16:18:00 2012 00:01:00 DIS Outpatient ANDREW FRNAZ ELECTRICAL INSTALLATION SUPERVISOR [facility] LYME'S DI [id number] 08/20/2012 12:59:00 2012 00:01:00 DIS Outpatient ANDRWE FRANZ ELECTRICAL INSTALLATION SUPERVISOR [facility] ACCESS PORT [id number] 09/23/2016 10:02:00 ACT Outpatient ANDREW FRANZ ELECTRICAL INSTALLATION SUPERVISOR [facility] RAD SCREENING Z12.31 [id number] 08/30/2016 15:14:00 ACT Outpatient ANDREW FRANZ ELECTRICAL INSTALLATION SUPERVISOR [facility] RAD ARM NUMBNESS/NECK PAIN [id number] 08/12/2016 11:47:00 ACT Outpatient KARLI FRANZIA Ivonne ELECTRICAL INSTALLATION SUPERVISOR [facility] RAD NECK PAIN [id number] 09/22/2015 09:26:00 ACT Outpatient FRANZANDREW RODRIGUES [facility] RAD ROUTINE [id number] 05/28/2013 00:00:00 Document Registration [id number] 04/19/2013 00:00:00 Document Registration [id number] 12/26/2012 00:00:00 Document Registration [id number] 11/19/2012 00:00:00 Document Registration [id number] 07/05/2012 10:30:00 Document Registration [id number] 06/19/2012 08:56:00 Document Registration [id number] 06/18/2012 14:24:00 Document Registration [id number] 02/07/2012 20:07:00 Document Registration [id number] 10/27/2011 10:31:00 Document Registration [id number] 06/22/2011 15:34:00 Document Registration [id number] 05/16/2011 13:32:00 Document Registration [id number] 04/05/2011 11:40:00 Document Registration [id number] 11/08/2010 14:59:00 Document Registration [id number] 10/22/2010 09:41:00 Document Registration [id number] 10/21/2009 13:16:00 Document Registration [id number] 10/14/2008 08:45:00 Document Registration [id number] 09/04/2008 09:54:00 Document Registration
== END 2016-10-06 11:54 | disposition home or self-care (01) ==
LOC: SDC 06:11
PROVIDERS: ATTEND Surgery
DX: Z12.11 Encounter for screening for malignant neoplasm of colon (principal); K64.4 Residual hemorrhoidal skin tags; E03.9 Hypothyroidism, unspecified; E10.40 Type 1 diabetes mellitus with diabetic neuropathy, unspecified; F41.9 Anxiety disorder, unspecified; A69.20 Lyme disease, unspecified; Z79.899 Other long term (current) drug therapy
CPT/HCPCS: 82962; 87081; 88304

== ENCOUNTER 2016-12-29 14:17 | Emergency (ER) | payer BC ==
[~2016-12-29] VITALS: Ht 175.3 cm; Wt 82.2 kg
[~2016-12-29 14:17] MED LIST changes: +DOCU-143 PO; +HYDR-3812 PO
--- NOTE | 2016-12-29 14:43 | ED Cough/URI ---
General Chief Complaint: Respiratory Problems Stated Complaint: SOA History of Present Illness Time seen by provider: 14:30 Initial Comments Patient brought via EMS to ED 10 for dyspnea. She reports 3 weeks ago she was diagnosed with pneumonia and started on Levaquin, after one week she had no improvement in her symptoms and was started on 2 additional weeks. She was started on an albuterol inhaler which helped her symptoms that she has not used it for several days. She has a history of diabetes with an insulin pump and hypothyroidism, she was recently switched from nature thyroid to Mccamey Thyroid. She took her first dose of M[place]amey Thyroid today. If she puts pressure on her xiphoid she feels like it is easier to breathe. Her glucose per EMS was 113, vital signs remained stable and SaO2 100% on room air. She states "feels like my diaphragm is under my ribs pushing on my lungs" she reports that one other time she had a similar symptom and required a manipulation by a chiropractor. She reports a history of anxiety, it has been worse over the last week as her Ativan prescription has lapsed. She is call Dr. England's office on few occasions and it has not been filled yet. Timing/Duration: just prior to arrival, getting worse Severity/Quality: no cough Prior Episodes/Possible Cause: occasional episodes Modifying Factors: Improves With Rest Associated Symptoms: other (left-sided neck pain. She attended PT yesterday for chronic neck issues. She denies doing any new exercises at PT.) Allergies and Home Medications Allergies Coded Allergies: clarithromycin (Verified Allergy, Unknown, 10/03/16) codeine (Verified Allergy, Unknown, 10/03/16) Home Medications Acetylcarnitine 500 Mg Capsule, 400 MG PO DAILY, (Reported) Alpha Lipoic Acid 200 Mg Capsule, 200 MG PO DAILY, (Reported) Butalbital/Acetaminophen 1 Each Tablet, 1 EACH PO PRN, (Reported) Cholecalciferol (Vitamin D3) 1,000 Unit Tablet, 1,000 UNIT PO BID, (Reported) Cyclobenzaprine HCl 10 Mg Tablet, 10 MG PO Q8H PRN for SPASMS, #12 Ref 0 Prescribed by: KIKE ZAZUETA on 12/29/16 1652 Docusate Sodium 100 Mg Capsule, 100 MG PO BID, #60 Prescribed by: MARCELINO LIVINGSTON on 10/06/16 1123 Duloxetine Hcl 30 Mg Capsule.dr, 30 MG PO DAILY, (Reported) Mirian Root 550 Mg Capsule, 550 MG PO SUPPER, (Reported) Hydrocodone/Acetaminophen 1 Each Tablet, 1 EA PO Q4-6HR PRN for PAIN-MODERATE TO SEVERE, #30 Ref 0 Prescribed by: KEN COELLO on 10/06/16 0938 Hydroxychloroquine Sulfate 200 Mg Tablet, 200 MG PO BID, (Reported) Insulin Human Lispro 100 U/Ml Vial, (Reported) PER INSULIN PUMP Lactobacillus Rhamnosus Gg 1 Each Capsule, 1 TAB PO TID, (Reported) Lorazepam 1 Mg Tablet, 1 MG PO BID, (Reported) Magnesium Oxide 400 Mg Tablet, 400 MG PO DAILY, (Reported) Pyridoxine HCl 100 Mg Tablet, 100 MG PO DAILY, (Reported) Testosterone 2.5 Gm Gel.packet, 2.5 GM TD DAILY, (Reported) Thyroid,Pork 32.5 Mg Tablet, 3 TAB PO DAILY, (Reported) Ubidecarenone 200 Mg Capsule, 200 MG PO DAILY, (Reported) Vitamin E Mixed 400 Unit Capsule, 400 UNIT PO DAILY, (Reported) Constitutional: no symptoms reported, see HPI Respiratory: see HPI, short of breath Psychiatric/Neurological: See HPI, Anxiety All Other Systems Reviewed Negative Unless Noted: Yes Past Vcpynpo-Vxdwgm-Tvgben Hx Patient Social History Recent Hopitalizations: No Immunizations Up To Date Tetanus Booster (TDap): Unknown Seasonal Allergies Seasonal Allergies: No Surgeries Surgeries: Gallbladder, Hysterectomy Neurological Neurological Disorders: Headaches /Migraines, Seizure Disorder Reproductive System Hx Reproductive Disorders: No Sexually Transmitted Disease: No HIV/AIDS: No COMPLIANCE REVIEW SPECIALIST History: Hysterectomy Genitourinary Genitourinary Disorders: Kidney Stones Gastrointestinal Gastrointestinal Disorders: Chronic Diarrhea Musculoskeletal Musculoskeletal Disorders: Chronic Back Pain Endocrine Endocrine Disorders: Diabetes, Insulin dep HEENT Loss of Vision: Bilateral Hearing Impairment: Denies Psychosocial Behavioral Health Disorders: Anxiety Blood Transfusions Adverse Reaction to a Blood Tr: No Family Medical History Significant Family History: Heart Disease, Hypertension Family Medial History: Cataracts 19 FATHER 19 MOTHER Congenital disease G8 SISTER (clef palate) Hypercholesterolemia G8 SISTER Hypertension G8 SISTER Thyroid disease G8 SISTER No Family History of: AIDS Abdominal aortic aneurysm Freestone's disease Alcoholism Alzheimer's disease Aphasia Arthritis Asthma Cancer of mouth Cardiovascular disease Colon cancer Completed stroke Congenital heart disease Coronary thrombosis Cystic fibrosis Deafness or hearing loss Dementia Diabetes mellitus Drug abuse Dysphasia Fibrocystic disease of breast Gastroenteritis Glaucoma Headache disorder Infertility Kidney disease Myocardial infarction Neoplasm Not obtainable due to adoption Osteoporosis Parkinson's disease Prostate cancer Psychosocial problem Respiratory disorder Seizure disorder Severe allergy Tuberculosis Visual disorder Physical Exam Vital Signs Vital Sign - Last 12Hours 12/29/16 12/29/16 15:13 15:43 Temp 98.0 Pulse 82 Resp 20 B/P (MAP) 123/87 Pulse Ox 100 O2 Delivery Room Air Capillary Refill : General Appearance: WD/WN, no apparent distress HEENT: PERRL/EOMI, normal ENT inspection, TMs normal, pharynx normal Neck: non-tender, full range of motion, supple, normal inspection Respiratory: chest non-tender, lungs clear, normal breath sounds, no respiratory distress Cardiovascular: normal peripheral pulses, regular rate, rhythm Gastrointestinal: normal bowel sounds, non tender, soft Extremities: normal range of motion, non-tender, normal inspection, no pedal edema, no calf tenderness, pelvis stable Neurologic/Psychiatric: full stack developer II-XII nml as tested (grossly intact), no motor/ sensory deficits, alert, normal mood/affect, oriented x 3 Skin: normal color, warm/dry Lymphatic: no adenopathy Progress/Results/Core Measures Results/Orders Lab Results Laboratory Tests Test 12/29/16 14:40 12/29/16 14:50 Range/Units Urine Color YELLOW Urine Clarity CLEAR Urine pH 7 5-9 Urine Specific Drummonds 1.010 L 1.016-1.022 Urine Protein NEGATIVE NEGATIVE Urine Glucose (UA) NEGATIVE NEGATIVE Urine Ketones 2+ H NEGATIVE Urine Nitrite NEGATIVE NEGATIVE Urine Bilirubin NEGATIVE NEGATIVE Urine Urobilinogen NORMAL NORMAL MG/DL Urine Leukocyte Esterase 1+ H NEGATIVE Urine RBC (Auto) NEGATIVE NEGATIVE Urine RBC NONE /HPF Urine WBC 2-5 /HPF Urine Squamous Epithelial Cells 0-2 /HPF Urine Crystals NONE /LPF Urine Bacteria NEGATIVE /HPF Urine Casts NONE /LPF Urine Mucus NEGATIVE /LPF Urine Culture Indicated NO White Blood Count 7.6 4.3-11.0 10^3/uL Red Blood Count 4.47 4.35-5.85 10^6/uL Hemoglobin 13.9 11.5-16.0 G/DL Hematocrit 40 35-52 % Mean Corpuscular Volume 89 80-99 FL Mean Corpuscular Hemoglobin 31 25-34 PG Mean Corpuscular Hemoglobin Concent 35 32-36 G/DL Red Cell Distribution Width 12.2 10.0-14.5 % Platelet Count 300 130-400 10^3/uL Mean Platelet Volume 10.0 7.4-10.4 FL Neutrophils (%) (Auto) 57 42-75 % Lymphocytes (%) (Auto) 33 12-44 % Monocytes (%) (Auto) 8 0-12 % Eosinophils (%) (Auto) 1 0-10 % Basophils (%) (Auto) 1 0-10 % Neutrophils # (Auto) 4.3 1.8-7.8 X 10^3 Lymphocytes # (Auto) 2.5 1.0-4.0 X 10^3 Monocytes # (Auto) 0.6 0.0-1.0 X 10^3 Eosinophils # (Auto) 0.1 0.0-0.3 10^3/uL Basophils # (Auto) 0.0 0.0-0.1 10^3/uL Erythrocyte Sedimentation Rate 6 0-20 MM/HR Sodium Level 138 135-145 MMOL/L Potassium Level 3.8 3.6-5.0 MMOL/L Chloride Level 106 98-107 MMOL/L Carbon Dioxide Level 23 21-32 MMOL/L Anion Gap 9 5-14 MMOL/L Blood Urea Nitrogen 11 7-18 MG/DL Creatinine 0.96 0.60-1.30 MG/DL Estimat Glomerular Filtration Rate > 60 BUN/Creatinine Ratio 11 Glucose Level 126 H 70-105 MG/DL Calcium Level 9.4 8.5-10.1 MG/DL Total Bilirubin 0.3 0.1-1.0 MG/DL Aspartate Amino Transf (AST/SGOT) 16 5-34 U/L Alanine Aminotransferase (ALT/SGPT) 12 0-55 U/L Alkaline Phosphatase 70 40-136 U/L Total Protein 6.4 6.4-8.2 GM/DL Albumin 4.0 3.2-4.5 GM/DL My Orders Orders - KIKE ZAZUETA Chest Pa/Lat (2 View) (12/29/16 14:34) Cbc With Automated Diff (12/29/16 14:34) Comprehensive Metabolic Panel (12/29/16 14:34) Ua Culture If Indicated (12/29/16 14:34) Erythrocyte Sedimentation Rate (12/29/16 14:34) Rt Request For Service (12/29/16 15:36) Cyclobenzaprine Tablet (Flexeril Tablet) (12/29/16 15:36) Albuterol/Ipra Inhalation Soln (Duoneb I (12/29/16 15:45) Svn Sm Volume Nebulizer Rt-Rfs (12/29/16 15:37) Medications Given in ED Current Medications Medications Dose Ordered Sig/Karlo Route Start Time Stop Time Status Last Admin Dose Admin Albuterol/ Ipratropium 3 ml ONCE ONCE INH 12/29/16 15:45 12/29/16 15:46 DC 12/29/16 15:43 3 ML Vital Signs/I&O Vital Sign - Last 12Hours 12/29/16 12/29/16 12/29/16 15:13 15:43 17:01 Temp 98.0 98.0 Pulse 82 81 Resp 20 20 B/P (MAP) 123/87 Pulse Ox 100 100 100 O2 Delivery Room Air Room Air Progress Note : Time: 14:30 Progress Note Initial evaluation completed, exam essentially normal. CBC, CMP and UA. 1530 labs all normal. Patient complaining of increased pain in the left neck. Exam benign. Recommended Flexeril 10 mg by mouth. 1640 patient reports left-sided neck pain has improved slightly. Discussed the fact that she has been off the Ativan and some of her symptoms seem to really related to anxiety or withdrawal from this medication. She is taken it for years. She will follow up with the pharmacy for this prescription, attempted to call Dr. England's office, already closed for today. [facility] unable to be reached to see if prescription is available. Diagnostic Imaging Diagonstic Imaging: Xray Plain Films/CT/US/NM/MRI: chest Comments NAME: KIKE MACE MED REC#: [id number] PT STATUS: REG ER : 1965 PHYSICIAN: KIKE ZAZUETA [facility] ADMIT DATE: 12/29/16/ER Draft Date of Exam:12/29/16 CHEST PA/LAT (2 VIEW) EXAMINATION: PA and lateral views of the chest. INDICATION: Left-sided chest pain. FINDINGS: There is minimal atelectasis or scarring in the left lung base. The right lung is clear. The heart size is normal. No effusion or pneumothorax. The mediastinum and eduardo appear unremarkable. Right subclavian port is seen with the tip in the proximal right atrium level. IMPRESSION: Minimal left basilar atelectasis or scarring. Dictated on workstation # [id number] Dict: 12/29/16 1513 Trans: 12/29/16 1538 [facility] [id number] Interpreted by: RAY MOSS MD Electronically signed by: Departure Impression Impression: Primary Impression: Dyspnea Qualified Codes: R06.02 - Shortness of breath Additional Impression: Sprain of cervical neck Qualified Codes: S13.9XXA - Sprain of joints and ligaments of unspecified parts of neck, initial encounter Disposition: HOME, SELF-CARE Condition: Improved Departure-Patient Inst. Decision time for Depature: 16:30 Referrals: ELIA ENGLAND DO (PCP/Family) Primary Care Physician Patient Instructions: Pneumonia, Adult (DC) Add. Discharge Instructions: Continue to take her Levaquin as prescribed. Usual inhaler every 4 hours. Keep your appointment for physical therapy tomorrow. Use the Flexeril as needed for muscle spasms and pain. Follow-up with Dr. England early next week. Return to the emergency department if symptoms worsen or new problems. All discharge instructions reviewed with patient and/or family. Voiced understanding. Scripts Cyclobenzaprine HCl (Cyclobenzaprine HCl) 10 Mg Tablet 10 MG PO Q8H Y for SPASMS, #12 TAB 0 Refills Prov: KIKE ZAZUETA 12/29/16 Copy Copies To 1: ELIA ENGLAND AMY ARNP Dec 29, 2016 14:43
[2016-12-29 15:09] LABS: BASOPHILS % (AUTO) 1 % (0-10); EOSINOPHILS # (AUTO) 0.1 10^3/uL (0.0-0.3); EOSINOPHILS % (AUTO) 1 % (0-10); LYMPHOCYTES # (AUTO) 2.5 X 10^3 (1.0-4.0); LYMPHOCYTES % (AUTO) 33 % (12-44); MEAN CORPUSCULAR HEMOGLOBIN 31 PG (25-34); MEAN CORPUSCULAR HGB CONC 35 G/DL (32-36); MEAN CORPUSCULAR VOLUME 89 FL (80-99); MONOCYTES # (AUTO) 0.6 X 10^3 (0.0-1.0); MONOCYTES % (AUTO) 8 % (0-12); NEUTROPHILS # (AUTO) 4.3 X 10^3 (1.8-7.8); NEUTROPHILS % (AUTO) 57 % (42-75); PLATELET COUNT 300 10^3/uL (130-400); RED BLOOD COUNT 4.47 10^6/uL (4.35-5.85); RED CELL DISTRIBUTION WIDTH 12.2 % (10.0-14.5); WHITE BLOOD COUNT 7.6 10^3/uL (4.3-11.0)
[2016-12-29 15:21] LABS: BILIRUBIN,URINE NEGATIVE (NEGATIVE); KETONES,URINE 2+ (NEGATIVE); LEUKOCYTE ESTERASE ,URINE 1+ (NEGATIVE); NITRITE,URINE NEGATIVE (NEGATIVE); PH,URINE 7 (5-9); PROTEIN,URINE NEGATIVE (NEGATIVE); UROBILINOGEN,URINE NORMAL (NORMAL)
[2016-12-29 15:27] LABS: ERYTHROCYTE SEDIMENTATION RATE 6 MM/HR (0-20)
[2016-12-29 15:31] LABS: ALANINE AMINOTRANSFERASE 12 U/L (0-55); ANION GAP 9 MMOL/L (5-14); ASPARTATE AMINO TRANSFERASE 16 U/L (5-34); BILIRUBIN,TOTAL 0.3 MG/DL (0.1-1.0); BLOOD UREA NITROGEN 11 MG/DL (7-18); BUN/CREATININE RATIO 11; CALCIUM 9.4 MG/DL (8.5-10.1); CARBON DIOXIDE 23 MMOL/L (21-32); CHLORIDE 106 MMOL/L (98-107); CREATININE SERUM 0.96 MG/DL (0.60-1.30); GFR ESTIMATED > 60; GLUCOSE 126 MG/DL (70-105); POTASSIUM 3.8 MMOL/L (3.6-5.0); SODIUM 138 MMOL/L (135-145); TOTAL PROTEIN 6.4 GM/DL (6.4-8.2)
[2016-12-29 15:36] LABS: SQUAMOUS EPITHELIAL CELL,UR 0-2 /HPF
--- NOTE | 2016-12-29 15:38 | Diagnostic Imaging Report ---
EXAMINATION: PA and lateral views of the chest. INDICATION: Left-sided chest pain. FINDINGS: There is minimal atelectasis or scarring in the left lung base. The right lung is clear. The heart size is normal. No effusion or pneumothorax. The mediastinum and eduardo appear unremarkable. Right subclavian port is seen with the tip in the proximal right atrium level. IMPRESSION: Minimal left basilar atelectasis or scarring. Dictated by: Dictated on workstation # [id number]
[2016-12-29] MEDS: RT-ALBUTEROL/IPRATROPIUM 3 ML (DUONEB) VIAL INH ONE (15:43)
[2016-12-29] MEDS: CYCLOBENZAPRINE 10 MG (FLEXERIL) TAB PO STA (15:44)
[2016-12-29] MEDS ORDERED: CYCL10TA9 PO (16:52)
[2016-12-29 17:01] VITALS: BP 132/81
== END 2016-12-29 17:01 | disposition home or self-care (01) ==
LOC: EDUNIT# 14:17 → ER 14:18
DX: S13.9XXA Sprain of joints and ligaments of unspecified parts of neck, initial encounter (principal); R06.00 Dyspnea, unspecified; G40.909 Epilepsy, unspecified, not intractable, without status epilepticus; G43.909 Migraine, unspecified, not intractable, without status migrainosus; E11.9 Type 2 diabetes mellitus without complications; E03.9 Hypothyroidism, unspecified; F41.9 Anxiety disorder, unspecified; Z79.4 Long term (current) use of insulin; Z87.442 Personal history of urinary calculi; Z82.49 Family history of ischemic heart disease and other diseases of the circulatory system; Z90.710 Acquired absence of both cervix and uterus; X58.XXXA Exposure to other specified factors, initial encounter
CPT/HCPCS: 36415; 71020; 80053; 81000; 85025; 85652; 94640; 99283

== ENCOUNTER → 2017-04-12 | Outpatient (CLI) | payer BC ==
[~2017-04-12] MED LIST changes: +ACHD5005 PO; +CYCL10TA9 PO; +GADOBUTROL 10 MMOL/10 ML (GADAVIST) VIAL IV ONE; -HYDR-3812 PO
[2017-04-12 17:09] LABS: CREATININE SERUM 0.88 MG/DL (0.60-1.30)
--- NOTE | 2017-04-12 19:20 | Diagnostic Imaging Report ---
MRI BRAIN IAC W/WO CONTRAST TECHNIQUE: Multiplanar, multisequence MR imaging of the brain was performed with and without contrast. High-resolution imaging of the internal auditory canal/brainstem was also performed. INDICATION: Headache and dizziness. COMPARISON: Brain MRI from 10/27/2011 FINDINGS: No restricted diffusion to indicate acute infarct. No gradient blooming hypointensities to indicate intracranial hemorrhage or vascular malformation. No mass or hydrocephalus. Periventricular white matter is normal without evidence of demyelinating plaques. Major arterial flow voids are preserved centrally. Orbits are unremarkable. Mastoid air cells are clear. High-resolution imaging of the internal auditory canals and brainstem demonstrate the bilateral cisternal portions of the cranial nerve VII and VIII to be normal in morphology. No mass along the vestibular nerve to indicate vestibular schwannoma. There is no abnormal osseous expansion of the internal auditory canals. Cisternal portions of cranial nerve 5 are normal. No abnormal expansion of Meckel's cave. Basilar artery is normal in course without tortuosity. The bilateral semicircular canals, cochlea and vestibula are normal in appearance. The sella and suprasellar regions are normal. No abnormal sagging of the midbrain. Postcontrast imaging of the brainstem and of the entire brain demonstrates no pathologic enhancement. There is no abnormal enhancement along its cranial nerves 7 to indicate inflammation. IMPRESSION: 1. No abnormality within the posterior fossa to explain patient's dizziness. 2. Normal pre-and postcontrast brain MRI. Dictated by: Dictated on workstation # [id number]
== END ==
LOC: RAD 16:18
PROVIDERS: ATTEND Otolaryngology
DX: G43.109 Migraine with aura, not intractable, without status migrainosus (principal)
CPT/HCPCS: 36415; 70553; 82565; 84520

== ENCOUNTER 2017-06-20 04:11 | Emergency (ER) | payer BC ==
[~2017-06-20] VITALS: Ht 170.2 cm; Wt 72.6 kg
[~2017-06-20 04:11] MED LIST changes: -GADOBUTROL 10 MMOL/10 ML (GADAVIST) VIAL IV ONE; -HYDR200T PO; +HYDR200T78 PO
[2017-06-20] MEDS ORDERED: NS IV 1000 ML 1,000 ML IV SCH (04:20)
--- NOTE | 2017-06-20 04:27 | ED GI ---
General Stated Complaint: DIABETES,BLOOD SUGAR 530,KETONES IN URINE Source of Information: Patient Exam Limitations: No Limitations History of Present Illness Date Seen by Provider: Jun 20, 2017 Time Seen by Provider: 04:16 Initial Comments Patient presents to the ER by private conveyance with her significant other and a chief complaint of for the past 2 days now she's been having high blood sugars with a max of 500. She has had a insulin pump for the past 14 years according to her significant other and has never had a blood sugar that high. She is not sure for something wrong with the pump but she's been trying to self diagnose it and has not figured out. She has reached out to her packer insulation but not heard back from them yet. She's had slightly increased urinary frequency over the past day. No dysuria, fevers, chills. She does have nausea but no vomiting or abdominal pain, cramping etc. She does not take any other insulin. Within the last week or 2 she has been sick with migraine headaches, diarrhea, malaise and fatigue. She's not had any fevers. This seemed to resolve in the last 3 or 4 days. The patient took 10 units of NovoLog at approximately 0350, 40 minutes ago. Allergies and Home Medications Allergies Coded Allergies: clarithromycin (Verified Allergy, Unknown, 10/03/16) codeine (Verified Allergy, Unknown, 10/03/16) Home Medications Acetylcarnitine 500 Mg Capsule, 400 MG PO DAILY, (Reported) Alpha Lipoic Acid 200 Mg Capsule, 200 MG PO DAILY, (Reported) Butalbital/Acetaminophen 1 Each Tablet, 1 EACH PO PRN, (Reported) Cholecalciferol (Vitamin D3) 1,000 Unit Tablet, 1,000 UNIT PO BID, (Reported) Cyclobenzaprine HCl 10 Mg Tablet, 10 MG PO Q8H PRN for SPASMS Prescribed by: KIKE ZAZUETA on 12/29/16 1652 Docusate Sodium 100 Mg Capsule, 100 MG PO BID Prescribed by: MARCELINO LIVINGSTON on 10/06/16 1123 Duloxetine Hcl 30 Mg Capsule.dr, 30 MG PO DAILY, (Reported) Mirian Root 550 Mg Capsule, 550 MG PO SUPPER, (Reported) Hydrocodone Bit/Acetaminophen 1 Each Tablet, 1 EA PO Q4-6HR PRN for PAIN- MODERATE TO SEVERE Prescribed by: KEN BARCLAYNithya on 10/06/16 0938 Hydroxychloroquine Sulfate 200 Mg Tablet, 200 MG PO BID, (Reported) Lactobacillus Rhamnosus Gg 1 Each Capsule, 1 TAB PO TID, (Reported) Lorazepam 1 Mg Tablet, 1 MG PO BID, (Reported) Magnesium Oxide 400 Mg Tablet, 400 MG PO DAILY, (Reported) Pyridoxine HCl 100 Mg Tablet, 100 MG PO DAILY, (Reported) Testosterone 2.5 Gm Gel.packet, 2.5 GM TD DAILY, (Reported) Thyroid,Pork 32.5 Mg Tablet, 3 TAB PO DAILY, (Reported) Ubidecarenone 200 Mg Capsule, 200 MG PO DAILY, (Reported) Vitamin E Mixed 400 Unit Capsule, 400 UNIT PO DAILY, (Reported) Patient Home Medication List Home Medication List Reviewed: Yes Review of Systems Constitutional: No chills, No fever, No malaise EENTM: No Blurred Vision, No Double Vision, No Ear Pain Respiratory: Denies Cough, Denies Shortness of Air Cardiovascular: Denies Chest Pain, Denies Palpitations, Denies Syncope Gastrointestinal: Denies Constipated, Diarrhea Genitourinary: Denies Burning, Denies Discharge Musculoskeletal: No back pain, No joint pain Skin: No pruritus, No rash Psychiatric/Neurological: Denies Headache, Denies Numbness, Denies Paresthesia Past [id number]-Fbinpv Hx Patient Social History Recent Foreign Travel: No Contact w/Someone Who Travel: No Recent Hopitalizations: No Immunizations Up To Date Tetanus Booster (TDap): Unknown Seasonal Allergies Seasonal Allergies: No Surgeries History of Surgeries: Yes (CS x2, LEFT ARM LAC. 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) Neurological Disorders: Headaches /Migraines, Seizure Disorder Reproductive System Hx Reproductive Disorders: No Sexually Transmitted Disease: No HIV/AIDS: No PRODUCT HANDLER History: Hysterectomy Genitourinary Genitourinary Disorders: Kidney Stones Gastrointestinal History of Gastrointestinal Di: Yes Gastrointestinal Disorders: Chronic Diarrhea Musculoskeletal History of Musculoskeletal Dis: Yes (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, BONE SPURS BASE OF NECK) Musculoskeletal Disorders: Chronic Back Pain Endocrine History of Endocrine Disorders: Yes Endocrine Disorders: Diabetes, Insulin dep HEENT Loss of Vision: Bilateral Hearing Impairment: Denies Cancer History of Cancer: No Psychosocial History of Psychiatric Problem: Yes Behavioral Health Disorders: Anxiety Integumentary History of Skin or Integumenta: No Blood Transfusions History of Blood Disorders: No Adverse Reaction to a Blood Tr: No Family Medical History Significant Family History: Heart Disease, Hypertension Family Medial History: Cataracts 19 FATHER 19 MOTHER Congenital disease G8 SISTER (clef palate) Hypercholesterolemia G8 SISTER Hypertension G8 SISTER Thyroid disease G8 SISTER No Family History of: AIDS Abdominal aortic aneurysm Hutchinson's disease Alcoholism Alzheimer's disease Aphasia Arthritis Asthma Cancer of mouth Cardiovascular disease Colon cancer Completed stroke Congenital heart disease Coronary thrombosis Cystic fibrosis Deafness or hearing loss Dementia Diabetes mellitus Drug abuse Dysphasia Fibrocystic disease of breast Gastroenteritis Glaucoma Headache disorder Infertility Kidney disease Myocardial infarction Neoplasm Not obtainable due to adoption Osteoporosis Parkinson's disease Prostate cancer Psychosocial problem Respiratory disorder Seizure disorder Severe allergy Tuberculosis Visual disorder Physical Exam Vital Signs VS - Last 72 Hours, by Label 06/20/17 04:15 Temp 98.4 Pulse 102 Resp 20 B/P (MAP) 106/87 (93) Pulse Ox 99 O2 Delivery Room Air Capillary Refill : General Appearance: WD/WN, no apparent distress HEENT: PERRL/EOMI, pharynx normal (oral mucosa is moist.) Neck: non-tender, supple, normal inspection Respiratory: chest non-tender, lungs clear, normal breath sounds, no respiratory distress, no accessory muscle use Cardiovascular: normal peripheral pulses, regular rate, rhythm, no edema Peripheral Pulses: 2+ Radial Pulses (R), 2+ Radial Pulses (L) Gastrointestinal: normal bowel sounds, non tender, soft Extremities: normal range of motion, non-tender, normal capillary refill Neurologic/Psychiatric: alert, normal mood/affect, oriented x 3 Skin: normal color, warm/dry Progress/Results/Core Measures Results/Orders Lab Results Laboratory Tests Test 06/20/17 04:29 06/20/17 04:31 06/20/17 05:09 Range/Units Glucometer 426 *H 70-110 MG/DL White Blood Count 6.5 4.3-11.0 10^3/uL Red Blood Count 4.40 4.35-5.85 10^6/uL Hemoglobin 13.8 11.5-16.0 G/DL Hematocrit 39 35-52 % Mean Corpuscular Volume 89 80-99 FL Mean Corpuscular Hemoglobin 31 25-34 PG Mean Corpuscular Hemoglobin Concent 35 32-36 G/DL Red Cell Distribution Width 12.0 10.0-14.5 % Platelet Count 243 130-400 10^3/uL Mean Platelet Volume 10.1 7.4-10.4 FL Neutrophils (%) (Auto) 61 42-75 % Lymphocytes (%) (Auto) 31 12-44 % Monocytes (%) (Auto) 6 0-12 % Eosinophils (%) (Auto) 2 0-10 % Basophils (%) (Auto) 1 0-10 % Neutrophils # (Auto) 4.0 1.8-7.8 X 10^3 Lymphocytes # (Auto) 2.0 1.0-4.0 X 10^3 Monocytes # (Auto) 0.4 0.0-1.0 X 10^3 Eosinophils # (Auto) 0.1 0.0-0.3 10^3/uL Basophils # (Auto) 0.0 0.0-0.1 10^3/uL Sodium Level 132 L 135-145 MMOL/L Potassium Level 4.3 3.6-5.0 MMOL/L Chloride Level 101 98-107 MMOL/L Carbon Dioxide Level 20 L 21-32 MMOL/L Anion Gap 11 5-14 MMOL/L Blood Urea Nitrogen 14 7-18 MG/DL Creatinine 1.16 0.60-1.30 MG/DL Estimat Glomerular Filtration Rate 49 BUN/Creatinine Ratio 12 Glucose Level 517 *H 70-105 MG/DL Calcium Level 9.1 8.5-10.1 MG/DL Magnesium Level 1.9 1.8-2.4 MG/DL Total Bilirubin 0.4 0.1-1.0 MG/DL Aspartate Amino Transf (AST/SGOT) 12 5-34 U/L Alanine Aminotransferase (ALT/SGPT) 17 0-55 U/L Alkaline Phosphatase 81 40-136 U/L Total Protein 6.0 L 6.4-8.2 GM/DL Albumin 4.0 3.2-4.5 GM/DL Triglycerides Level 75 <150 MG/DL Cholesterol Level 152 < 200 MG/DL LDL Cholesterol Direct 75 1-129 MG/DL VLDL Cholesterol 15 5-40 MG/DL HDL Cholesterol 54 40-60 MG/DL Serum Alcohol < 10 <10 MG/DL Urine Color YELLOW Urine Clarity CLEAR Urine pH 7 5-9 Urine Specific [place] 1.010 L 1.016-1.022 Urine Protein NEGATIVE NEGATIVE Urine Glucose (UA) 4+ H NEGATIVE Urine Ketones 2+ H NEGATIVE Urine Nitrite NEGATIVE NEGATIVE Urine Bilirubin NEGATIVE NEGATIVE Urine Urobilinogen NORMAL NORMAL MG/DL Urine Leukocyte Esterase NEGATIVE NEGATIVE Urine RBC (Auto) NEGATIVE NEGATIVE Urine RBC NONE /HPF Urine WBC NONE /HPF Urine Squamous Epithelial Cells RARE /HPF Urine Crystals NONE /LPF Urine Bacteria TRACE /HPF Urine Casts NONE /LPF Urine Mucus NEGATIVE /LPF Urine Culture Indicated NO My Orders Orders - MAHSA GRAHAM Cbc With Automated Diff (06/20/17 04:20) Comprehensive Metabolic Panel (06/20/17 04:20) Magnesium (06/20/17 04:20) Ua Culture If Indicated (06/20/17 04:20) Saline Lock/Iv-Start (06/20/17 04:20) Ns Iv 1000 Ml (Sodium Chloride 0.9%) (06/20/17 04:20) Accucheck Stat ONCE (06/20/17 04:20) Alcohol (06/20/17 04:28) Osmolality Serum (06/20/17 04:28) Lipid Panel (06/20/17 04:30) Insulin Aspart (Novolog) (Novolog (Charg (06/20/17 05:30) Medications Given in ED Current Medications Medications Dose Ordered Sig/Karlo Route Start Time Stop Time Status Last Admin Dose Admin Insulin Aspart 7 unit ONCE ONCE SC 06/20/17 05:30 06/20/17 05:31 06/20/17 05:24 7 UNIT Vital Signs/I&O Vital Sign - Last 12Hours 06/20/17 04:15 Temp 98.4 Pulse 102 Resp 20 B/P (MAP) 106/87 (93) Pulse Ox 99 O2 Delivery Room Air Progress Note #1: Time: 04:26 Progress Note Initially we will rule out DKA/HHS. We'll give her a liter of normal saline and Accu-Chek. She is not having any pain and while she does have some slight nausea she does not want anything for it. 426 initial CBG. Progress Note #2: Time: 05:19 Progress Note While she has a hyperglycemic state does not seem to be consistent with even mild DKA. We'll wait for the possibility of ketones and her urinalysis but were going to ahead and give her some insulin and give her bag of IV fluids. She's not having any nausea, abdominal pain, altered mental status, or other signs. The 10 units that she said she gave herself before 4:00 were using her pump which apparently was pump has not been working appropriately the 2 days that she 's had it. She's going to switch back to her old pump and try again to get in contact with the medical supply company. We will give her 0.1 units per kilogram subcutaneous right now of NovoLog while we wait for the urinalysis results. Progress Note #3: Time: 06:01 Progress Note CBG 233 Departure Impression Impression: Primary Impression: Hyperglycemia Disposition: HOME, SELF-CARE Condition: Stable Departure-Patient Inst. Decision time for Depature: 06:02 Referrals: ELIA FRANZ DO (PCP/Family) Primary Care Physician Patient Instructions: Diabetes Type 2 (DC) Add. Discharge Instructions: Switch out to your old pump and contact medical services who provided your pump. Checked your blood sugar before meals. You can also talk to the packer insulation for support. Return to the ER if you start to experience abdominal pain, nausea, difficulty keeping fluids down or other worrisome symptoms. Copy Copies To 1: ELIA FRANZ TITUS J Jun 20, 2017 04:27
[2017-06-20 04:37] LABS: BASOPHILS % (AUTO) 1 % (0-10); EOSINOPHILS # (AUTO) 0.1 10^3/uL (0.0-0.3); EOSINOPHILS % (AUTO) 2 % (0-10); HEMATOCRIT 39 % (35-52); HEMOGLOBIN 13.8 G/DL (11.5-16.0); LYMPHOCYTES % (AUTO) 31 % (12-44); MEAN CORPUSCULAR HEMOGLOBIN 31 PG (25-34); MEAN CORPUSCULAR HGB CONC 35 G/DL (32-36); MEAN CORPUSCULAR VOLUME 89 FL (80-99); MEAN PLATELET VOLUME 10.1 FL (7.4-10.4); MONOCYTES # (AUTO) 0.4 X 10^3 (0.0-1.0); MONOCYTES % (AUTO) 6 % (0-12); NEUTROPHILS % (AUTO) 61 % (42-75); PLATELET COUNT 243 10^3/uL (130-400); WHITE BLOOD COUNT 6.5 10^3/uL (4.3-11.0)
[2017-06-20 04:59] LABS: ALANINE AMINOTRANSFERASE 17 U/L (0-55); ALKALINE PHOSPHATASE 81 U/L (40-136); BILIRUBIN,TOTAL 0.4 MG/DL (0.1-1.0); BUN/CREATININE RATIO 12; CALCIUM 9.1 MG/DL (8.5-10.1); CARBON DIOXIDE 20 MMOL/L (21-32); CHLORIDE 101 MMOL/L (98-107); CHOLESTEROL 152 MG/DL (< 200); CREATININE SERUM 1.16 MG/DL (0.60-1.30); GFR ESTIMATED 49; HDL CHOLESTEROL 54 MG/DL (40-60); MAGNESIUM 1.9 MG/DL (1.8-2.4); POTASSIUM 4.3 MMOL/L (3.6-5.0); SODIUM 132 MMOL/L (135-145); TRIGLYCERIDES 75 MG/DL (<150); VLDL CHOLESTEROL 15 MG/DL (5-40)
[2017-06-20 05:02] LABS: GLUCOSE 517 MG/DL (70-105)
[2017-06-20 05:17] LABS: BILIRUBIN,URINE NEGATIVE (NEGATIVE); CLARITY,URINE CLEAR; COLOR,URINE YELLOW; GLUCOSE, URINE (UA) 4+ (NEGATIVE); KETONES,URINE 2+ (NEGATIVE); LEUKOCYTE ESTERASE ,URINE NEGATIVE (NEGATIVE); NITRITE,URINE NEGATIVE (NEGATIVE); PH,URINE 7 (5-9); PROTEIN,URINE NEGATIVE (NEGATIVE); UROBILINOGEN,URINE NORMAL (NORMAL)
[2017-06-20 05:23] LABS: BACTERIA,URINE TRACE /HPF; SQUAMOUS EPITHELIAL CELL,UR RARE /HPF
[2017-06-20] MEDS ORDERED: inSUlin ASPART (NovoLOG) 1 UNIT/0.01 ML (CHARGE PER UNIT) SC ONE (05:30)
--- OUTSIDE RECORDS SUMMARY | 2017-06-20 05:54 | XMS REPORT | Continuity of Care Document ---
Author Author [employer] Organization [facility] Address Unknown Phone Unavailable Care Team Providers Care Operations Mgr Name Role Phone [employer] Unavailable Unavailable Problems Medications Allergies, Adverse Reactions, Alerts Immunizations Results Vital Signs Encounters Location Location Details Encounter Type Encounter Number Reason For Visit Attending Provider ADM Date DC Date Status Source O 04/12/2017 04/12/2017 Active [facility] Procedures Plan of Care Social History Assessment and Plan Family History Advance Directives Functional Status
--- OUTSIDE RECORDS SUMMARY | 2017-06-20 05:56 | XMS REPORT | Continuity of Care Document ---
Author Author [facility] Organization [facility] Address Unknown Phone Unavailable Allergies Active Description Code Type Severity Reaction Onset Reported/Identified Relationship to Patient Clinical Status Yes clarithromycin [id number] Drug Allergy Unknown N/A 10/03/2016 Yes codeine [id number] Drug Allergy Unknown N/A 10/03/2016 Medications There is no data. Problems Date Dx Coded Attending Type Code Diagnosis Diagnosed By 02/08/2012 Ot 327.23 OBSTRUCTIVE SLEEP APNEA (ADULT) (PEDIATR 02/08/2012 Ot 786.09 RESPIRATORY ABNORM NEC 06/19/2012 Ot 088.81 LYME DISEASE 11/18/2012 ANDREW FRANZ CHARGE ENTRY CLERK Ot 088.81 LYME DISEASE 11/18/2012 ANDREW FRANZ CHARGE ENTRY CLERK Ot V58.69 OT MED,LT,CURRENT USE 12/25/2012 ANDREW FRANZ CHARGE ENTRY CLERK Ot 088.81 LYME DISEASE 03/04/2013 BRODIE RICE, SOLANGE Salazar Ot 784.0 HEADACHE 03/04/2013 BRODIE RICE, SOLANGE Salazar Ot 785.6 ENLARGEMENT LYMPH NODES 04/18/2013 ANDREW FRANZ CHARGE ENTRY CLERK Ot 790.7 BACTEREMIA 05/27/2013 ANDREW FRANZ CHARGE ENTRY CLERK Ot 790.7 BACTEREMIA 02/20/2014 Ot V64.3 02/20/2014 [...] FRANZ DO Ot E915 02/20/2014 ANDREW HOOPER CHARGE ENTRY CLERK Ot 936 02/20/2014 ANDREW HOOPER CHARGE ENTRY CLERK Ot E000.8 02/20/2014 NADREW HOOPER Ot E849.0 02/20/2014 ANDREW HOOPER CHARGE ENTRY CLERK Ot E915 02/20/2014 ELIA FRANZ DO Ot 937 02/20/2014 ELIA FRANZ DO Ot E000.8 02/20/2014 ELIA FRANZ DO Ot E849.0 02/20/2014 ELIA FRANZ DO Ot E915 02/20/2014 ELIA FRANZ DO Ot 790.7 02/20/2014 ELIA FRANZ DO Ot 790.7 02/20/2014 ANDREW ARAUJO BLOCK SAWYER Ot 790.7 02/20/2014 ELIA FRANZ DO Ot 790.7 02/20/2014 ANDREW FRANZ CHARGE ENTRY CLERK Ot 790.7 02/20/2014 Ot 790.7 02/20/2014 Ot 790.7 02/20/2014 ANDREW FRANZ CHARGE ENTRY CLERK Ot V76.12 02/20/2014 FRANZANDREW RODRIGUES CHARGE ENTRY CLERK Ot 719.45 02/20/2014 FRANZANDREW RODRIGUES CHARGE ENTRY CLERK Ot 722.4 02/20/2014 FRANZANDREW RODRIGUES CHARGE ENTRY CLERK Ot 724.2 02/20/2014 FRANZANDREW RODRIGUES CHARGE ENTRY CLERK Ot 724.4 02/20/2014 FRANZANDREW RODRIGUES CHARGE ENTRY CLERK Ot 625.9 02/25/2014 FRANZANDREW RODRIGUES CHARGE ENTRY CLERK Ot 625.9 03/24/2014 Ot V76.12 03/24/2014 Ot [...] 03/24/2014 Ot V58.69 03/24/2014 Ot 088.81 03/24/2014 OSEI SMART, ELIA Jc Ot 938 03/24/2014 FRANZ DO, ELIA Jc Ot E000.8 03/24/2014 FRANZ DO, ELIA Jc Ot E849.0 03/24/2014 FRANZ DO, ELIA Jc Ot E915 03/24/2014 FRANZ DOELIA Ot 936 03/24/2014 FRANZ ELIA SMART Ot E000.8 03/24/2014 FRANZ ELIA SMART Ot E849.0 03/24/2014 FRANZ ELIA SMART Ot E915 03/24/2014 ANDREW HOOPER CHARGE ENTRY CLERK Ot 936 03/24/2014 ANDREW HOOPER CHARGE ENTRY CLERK Ot E000.8 03/24/2014 ANDREW HOOPER CHARGE ENTRY CLERK Ot E849.0 03/24/2014 RUFUS ANDREW Saadia CHARGE ENTRY CLERK Ot E915 03/24/2014 ELIA FRANZ DO Ot 937 03/24/2014 ELIA FRANZ DO Ot E000.8 03/24/2014 ELIA FRANZ DO Ot E849.0 03/24/2014 ELIA FRANZ DO Ot E915 03/24/2014 ELIA FRANZ DO Ot 790.7 03/24/2014 ELIA FRANZ DO Ot 790.7 03/24/2014 VAN ANDREW Ceron BLOCK SAWYER Ot 790.7 03/24/2014 ELIA FRANZ DO Ot 790.7 03/24/2014 ANDREW FRANZ CHARGE ENTRY CLERK Ot 790.7 03/24/2014 Ot 790.7 03/24/2014 Ot 790.7 03/24/2014 ANDREW FRANZ CHARGE ENTRY CLERK Ot V76.12 03/24/2014 KARLI FRANZIA L CHARGE ENTRY CLERK Ot 719.45 03/24/2014 KARLI FRANZIA L CHARGE ENTRY CLERK Ot 722.4 03/24/2014 KARLI FRANZIA L CHARGE ENTRY CLERK Ot 724.2 03/24/2014 KARLI FRANZIA L CHARGE ENTRY CLERK Ot 724.4 03/24/2014 KARLI FRANZIA L CHARGE ENTRY CLERK Ot 625.9 03/24/2014 JOHANNA SALDANA DO Ot V72.84 03/25/2014 ELIA FRANZ DO Ot 244.9 HYPOTHYROIDISM NOS 03/25/2014 ELIA FRANZ DO Ot 250.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 W NEURO MANIFEST, TYPE I [JUVENILE 03/25/2014 ELIA FRANZ DO Ot 276.50 VOLUME DEPLETION, UNSPECIFIED 03/25/2014 ELIA FRANZ DO Ot 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 03/25/2014 ELIA FRANZ DO Ot 458.0 ORTHOSTATIC HYPOTENSION 03/25/2014 ELIA FRANZ DO Ot 627.4 SYMPT STATES ASSOC W ARTIFIC MENOPAUSE 03/25/2014 ELIA FRANZ DO Ot 780.79 OTH MALAISE FATIGUE 03/25/2014 ELIA FRANZ DO Ot V07.4 HORMONE REPLACEMENT THERAPY (POSTMENOPAU 05/16/2014 Ot V76.12 05/16/2014 Ot 611.72 05/16/2014 [...] ANDREW HOOPERP Ot 936 05/16/2014 ANDREW HOOPER CHARGE ENTRY CLERK Ot E000.8 05/16/2014 ANDREW HOOPER CHARGE ENTRY CLERK Ot E849.0 05/16/2014 ANDREW HOOPER CHARGE ENTRY CLERK Ot E915 05/16/2014 ELIA FRANZ DO Ot 937 05/16/2014 ELIA FRANZ DO Ot E000.8 05/16/2014 ELIA FRANZ DO Ot E849.0 05/16/2014 ELIA FRANZ DO Ot E915 05/16/2014 ELIA FRANZ DO Ot 790.7 05/16/2014 ELIA FRANZ DO Ot 790.7 05/16/2014 AWIASPRASHANT ANDREW Ceron BLOCK SAWYER Ot 790.7 05/16/2014 ELIA FRANZ DO Ot 790.7 05/16/2014 ANDREW FRANZ CHARGE ENTRY CLERK Ot 790.7 05/16/2014 Ot 790.7 05/16/2014 Ot 790.7 05/16/2014 ANDREW FRANZ CHARGE ENTRY CLERK Ot V76.12 05/16/2014 ANDREW FRANZ CHARGE ENTRY CLERK Ot 719.45 05/16/2014 ANDREW FRANZ CHARGE ENTRY CLERK Ot 722.4 05/16/2014 ANDREW FRANZ CHARGE ENTRY CLERK Ot 724.2 05/16/2014 ANDREW FRANZ CHARGE ENTRY CLERK Ot 724.4 05/16/2014 ANDREW FRANZ CHARGE ENTRY CLERK Ot 625.9 05/16/2014 JOHANNA SALDANA DO Ot [...] FRANZ DO, ELIA Jc Ot E915 11/06/2014 RUFUSANDREW A CHARGE ENTRY CLERK Ot 936 11/06/2014 RUFUSKARLIIA A CHARGE ENTRY CLERK Ot E000.8 11/06/2014 RUFUSKARLIIA A CHARGE ENTRY CLERK Ot E849.0 11/06/2014 RUFUSANDREW A CHARGE ENTRY CLERK Ot E915 11/06/2014 FRANZ DO, ELIA Jc Ot 937 11/06/2014 FRANZ DO, ELIA Jc Ot E000.8 11/06/2014 FRANZ DO, ELIA Jc Ot E849.0 11/06/2014 FRANZ DO, ELIA Jc Ot E915 11/06/2014 FRANZ DO, ELIA Jc Ot 790.7 11/06/2014 FRANZ DO, ELIA Jc Ot 790.7 11/06/2014 ANDREW ARAUJO BLOCK SAWYER Ot 790.7 11/06/2014 FRANZ DO, ELIA Jc Ot 790.7 11/06/2014 KARLI FRANZIA L CHARGE ENTRY CLERK Ot 790.7 11/06/2014 Ot 790.7 11/06/2014 Ot 790.7 11/06/2014 FRANZ, ANDREW L CHARGE ENTRY CLERK Ot V76.12 11/06/2014 FRANZ, ANDREW L CHARGE ENTRY CLERK Ot 719.45 11/06/2014 FRANZ, ANDREW L CHARGE ENTRY CLERK Ot 722.4 11/06/2014 FRANZ, ANDREW L CHARGE ENTRY CLERK Ot 724.2 11/06/2014 FRANZ, ANDREW L CHARGE ENTRY CLERK Ot 724.4 11/06/2014 JEAN FRANZRICIA L CHARGE ENTRY CLERK Ot 625.9 11/06/2014 JOHANNA SALDANA DO Ot V72.84 11/06/2014 ELIA FRANZ DO Ot V76.12 11/06/2014 ANDREW FRANZ CHARGE ENTRY CLERK Ot 473.9 11/20/2014 ANDREW FRANZ CHARGE ENTRY CLERK Ot 473.9 12/30/2014 Ot V76.12 12/30/2014 Ot [...] FRANZ DO Ot E915 12/30/2014 ANDREW HOOPER CHARGE ENTRY CLERK Ot 936 12/30/2014 ANDREW HOOPER CHARGE ENTRY CLERK Ot E000.8 12/30/2014 ANDREW HOOPER CHARGE ENTRY CLERK Ot E849.0 12/30/2014 ANDREW HOOPER CHARGE ENTRY CLERK Ot E915 12/30/2014 ELIA FRANZ DO Ot 937 12/30/2014 ELIA FRANZ DO Ot E000.8 12/30/2014 ELIA FRANZ DO Ot E849.0 12/30/2014 ELIA FRANZ DO Ot E915 12/30/2014 ELIA FRANZ DO Ot 790.7 12/30/2014 ELIA FRANZ DO Ot 790.7 12/30/2014 VAN ANDREW C BLOCK SAWYER Ot 790.7 12/30/2014 ELIA FRANZ DO Ot 790.7 12/30/2014 JEAN FRANZRICIA L CHARGE ENTRY CLERK Ot 790.7 12/30/2014 Ot 790.7 12/30/2014 Ot 790.7 12/30/2014 JEAN FRANZRICIA L CHARGE ENTRY CLERK Ot V76.12 12/30/2014 JEAN FRANZRICIA L CHARGE ENTRY CLERK Ot 719.45 12/30/2014 JEAN FRANZRICIA L CHARGE ENTRY CLERK Ot 722.4 12/30/2014 JEAN FRANZRICIA L CHARGE ENTRY CLERK Ot 724.2 12/30/2014 JEAN FRANZRICIA L CHARGE ENTRY CLERK Ot 724.4 12/30/2014 OSEI ANDREW L CHARGE ENTRY CLERK Ot 625.9 12/30/2014 JOHANNA SALDANA DO Ot V72.84 12/30/2014 ELIA FRANZ DO Ot V76.12 12/30/2014 JEAN FRANZRICIA L CHARGE ENTRY CLERK Ot 473.9 12/30/2014 JEAN FRANZRICIA L CHARGE ENTRY CLERK Ot 787.91 01/05/2015 JEAN FRANZRICIA L CHARGE ENTRY CLERK Ot 787.91 01/12/2015 FRANZ, ANDREW L CHARGE ENTRY CLERK Ot 787.91 07/12/2015 Ot 611.72 LUMP OR [...] Ot 401.9 HYPERTENSION NOS 07/12/2015 Ot V72.63 PRE- PROCEDURAL LABORATORY EXAMINATION 07/12/2015 Ot V72.81 EXAM-PRE- OPERATIVE CARDIOVASCULAR 07/12/2015 Ot V72.83 EXAM PRE- OPERATIVE NEC 07/12/2015 Ot V74.8 SCREEN- BACTERIAL DIS NEC 07/12/2015 Ot 088.81 LYME DISEASE 07/12/2015 Ot V58.69 OT MED,LT, CURRENT USE 07/12/2015 Ot 088.81 LYME DISEASE 07/12/2015 Ot V58.69 OT MED,LT, CURRENT USE 07/12/2015 Ot 088.81 LYME DISEASE 07/12/2015 [...] E915 FB ENTERING OTH ORIFICE 07/12/2015 ANDREW HOOPER CHARGE ENTRY CLERK Ot 936 FB IN INTESTINE COLON 07/12/2015 ANDREW HOOPER A CHARGE ENTRY CLERK Ot E000.8 OTHER EXTERNAL CAUSE STATUS 07/12/2015 KARLI HOOPERIA A CHARGE ENTRY CLERK Ot E849.0 ACCIDENT IN HOME 07/12/2015 ANDREW HOOPER A CHARGE ENTRY CLERK Ot E915 FB ENTERING OTH ORIFICE 07/12/2015 [...] DO Ot 790.7 BACTEREMIA 07/12/2015 ANDREW FRANZ CHARGE ENTRY CLERK Ot 790.7 BACTEREMIA 07/12/2015 Ot 790.7 BACTEREMIA 07/12/2015 Ot 790.7 BACTEREMIA 07/12/2015 ANDREW FRANZ CHARGE ENTRY CLERK Ot V76.12 OTH SCREEN MAMMO-MALIGN NEOPLASM OF DMITRY 07/12/2015 ANDREW FRANZ CHARGE ENTRY CLERK Ot 719.45 JOINT PAIN-PELVIS 07/12/2015 ANDREW FRANZ CHARGE ENTRY CLERK Ot 722.4 CERVICAL DISC DEGEN 07/12/2015 ANDREW FRANZ CHARGE ENTRY CLERK Ot 724.2 LUMBAGO 07/12/2015 ANDREW FRANZ CHARGE ENTRY CLERK Ot 724.4 LUMBOSACRAL NEURITIS NOS 07/12/2015 ANDREW FRANZ CHARGE ENTRY CLERK Ot 625.9 FEM GENITAL SYMPTOMS NOS 07/12/2015 JOHANNA SALDANA DO Ot V72.84 EXAM PRE-OPERATIVE NOS 07/12/2015 ELIA FRANZ DO Ot V76.12 OTH SCREEN MAMMO-MALIGN NEOPLASM OF DMITRY 07/12/2015 ANDREW FRANZ CHARGE ENTRY CLERK Ot 473.9 CHRONIC SINUSITIS NOS 07/12/2015 ANDREW FRANZ CHARGE ENTRY CLERK Ot 787.91 DIARRHEA 08/04/2015 Ot 611.72 LUMP [...] Ot 401.9 HYPERTENSION NOS 08/04/2015 Ot V72.63 PRE- PROCEDURAL LABORATORY EXAMINATION 08/04/2015 Ot V72.81 EXAM-PRE- OPERATIVE CARDIOVASCULAR 08/04/2015 Ot V72.83 EXAM PRE- OPERATIVE NEC 08/04/2015 Ot V74.8 SCREEN- BACTERIAL DIS NEC 08/04/2015 Ot 088.81 LYME DISEASE 08/04/2015 Ot V58.69 OT MED,LT, CURRENT USE 08/04/2015 Ot 088.81 LYME DISEASE 08/04/2015 Ot V58.69 OT MED,LT, CURRENT USE 08/04/2015 Ot 088.81 LYME DISEASE 08/04/2015 [...] E915 FB ENTERING OTH ORIFICE 08/04/2015 ANDREW HOOPERP Ot 936 FB IN INTESTINE COLON 08/04/2015 ANDREW HOOPER CHARGE ENTRY CLERK Ot E000.8 OTHER EXTERNAL CAUSE STATUS 08/04/2015 ANDREW HOOPERP Ot E849.0 ACCIDENT IN HOME 08/04/2015 ANDREW HOOPER CHARGE ENTRY CLERK Ot E915 FB ENTERING OTH ORIFICE 08/04/2015 ELIA FRANZ DO Ot 937 FOREIGN BODY ANUS/RECTUM 08/04/2015 ELIA FRANZ DO Ot E000.8 OTHER EXTERNAL CAUSE STATUS 08/04/2015 ELIA FRANZ DO Ot E849.0 ACCIDENT IN HOME 08/04/2015 ELIA FRANZ DO Ot E915 FB ENTERING OTH ORIFICE 08/04/2015 OSEI SMART ELIA Hosea Ot 790.7 BACTEREMIA 08/04/2015 OSEI SMART ELIA Hosea Ot 790.7 BACTEREMIA 08/04/2015 ANDREW ARAUJO BLOCK SAWYER Ot 790.7 BACTEREMIA 08/04/2015 OSEI SMART ELIA Hosea Ot 790.7 BACTEREMIA 08/04/2015 ANDREW FRANZ CHARGE ENTRY CLERK Ot 790.7 BACTEREMIA 08/04/2015 Ot 790.7 BACTEREMIA 08/04/2015 Ot 790.7 BACTEREMIA 08/04/2015 ANDREW FRANZ CHARGE ENTRY CLERK Ot V76.12 OTH SCREEN MAMMO-MALIGN NEOPLASM OF DMITRY 08/04/2015 ANDREW FRANZ CHARGE ENTRY CLERK Ot 719.45 JOINT PAIN-PELVIS 08/04/2015 ANDREW FRANZ CHARGE ENTRY CLERK Ot 722.4 CERVICAL DISC DEGEN 08/04/2015 ANDREW FRANZ L CHARGE ENTRY CLERK Ot 724.2 LUMBAGO 08/04/2015 ANDREW FRANZ L CHARGE ENTRY CLERK Ot 724.4 LUMBOSACRAL NEURITIS NOS 08/04/2015 ANDREW FRANZ L CHARGE ENTRY CLERK Ot 625.9 FEM GENITAL SYMPTOMS NOS 08/04/2015 JOHANNA SALDANA DO Ot V72.84 EXAM PRE-OPERATIVE NOS 08/04/2015 ELIA FRANZ DO Ot V76.12 OTH SCREEN MAMMO-MALIGN NEOPLASM OF DMITRY 08/04/2015 ANDREW FRANZ L CHARGE ENTRY CLERK Ot 473.9 CHRONIC SINUSITIS NOS 08/04/2015 ANDREW FRANZ CHARGE ENTRY CLERK Ot 787.91 DIARRHEA 08/04/2015 JL PERDOMO Ot [...] Ot 401.9 HYPERTENSION NOS 09/22/2015 Ot V72.63 PRE- PROCEDURAL LABORATORY EXAMINATION 09/22/2015 Ot V72.81 EXAM-PRE- OPERATIVE CARDIOVASCULAR 09/22/2015 Ot V72.83 EXAM PRE- OPERATIVE NEC 09/22/2015 Ot V74.8 SCREEN- BACTERIAL DIS NEC 09/22/2015 Ot 088.81 LYME DISEASE 09/22/2015 Ot V58.69 OT MED,LT, CURRENT USE 09/22/2015 Ot 088.81 LYME DISEASE 09/22/2015 Ot V58.69 OT MED,LT, CURRENT USE 09/22/2015 Ot 088.81 LYME DISEASE 09/22/2015 [...] FB IN INTESTINE COLON 09/22/2015 ANDREW HOOPER CHARGE ENTRY CLERK Ot E000.8 OTHER EXTERNAL CAUSE STATUS 09/22/2015 ANDREW HOOPER CHARGE ENTRY CLERK Ot E849.0 ACCIDENT IN HOME 09/22/2015 ANDREW HOOPER CHARGE ENTRY CLERK Ot E915 FB ENTERING OTH ORIFICE 09/22/2015 ELIA FRANZ DO Ot 937 FOREIGN BODY ANUS/RECTUM 09/22/2015 ELIA FRANZ DO Ot E000.8 OTHER EXTERNAL CAUSE STATUS 09/22/2015 ELIA FRANZ DO Ot E849.0 ACCIDENT IN HOME 09/22/2015 ELIA FRANZ DO Ot E915 FB ENTERING OTH ORIFICE 09/22/2015 ELIA FRANZ DO Ot 790.7 BACTEREMIA 09/22/2015 ELIA FRANZ DO Ot 790.7 BACTEREMIA 09/22/2015 ANDREW ARAUJO BLOCK SAWYER Ot 790.7 BACTEREMIA 09/22/2015 ELIA FRANZ DO Ot 790.7 BACTEREMIA 09/22/2015 ANDREW FRANZ CHARGE ENTRY CLERK Ot 790.7 BACTEREMIA 09/22/2015 Ot 790.7 BACTEREMIA 09/22/2015 Ot 790.7 BACTEREMIA 09/22/2015 ANDREW FRANZ CHARGE ENTRY CLERK Ot V76.12 OTH SCREEN MAMMO-MALIGN NEOPLASM OF DMITRY 09/22/2015 ANDREW FRANZ CHARGE ENTRY CLERK Ot 719.45 JOINT PAIN-PELVIS 09/22/2015 ANDREW FRANZ CHARGE ENTRY CLERK Ot 722.4 CERVICAL DISC DEGEN 09/22/2015 ANDREW FRANZ CHARGE ENTRY CLERK Ot 724.2 LUMBAGO 09/22/2015 ANDREW FRANZ L CHARGE ENTRY CLERK Ot 724.4 LUMBOSACRAL NEURITIS NOS 09/22/2015 ANDREW FRANZ L CHARGE ENTRY CLERK Ot 625.9 FEM GENITAL SYMPTOMS NOS 09/22/2015 JOHANNA SALDANA DO Ot V72.84 EXAM PRE-OPERATIVE NOS 09/22/2015 ELIA FRANZ DO Ot V76.12 OTH SCREEN MAMMO-MALIGN NEOPLASM OF DMITRY 09/22/2015 ANDREW FRANZ L CHARGE ENTRY CLERK Ot 473.9 CHRONIC SINUSITIS NOS 09/22/2015 ANDREW FRANZ CHARGE ENTRY CLERK Ot 787.91 DIARRHEA 09/23/2015 ANDREW FRANZ Ot [...] Ot 401.9 HYPERTENSION NOS 09/24/2015 Ot V72.63 PRE- PROCEDURAL LABORATORY EXAMINATION 09/24/2015 Ot V72.81 EXAM-PRE- OPERATIVE CARDIOVASCULAR 09/24/2015 Ot V72.83 EXAM PRE- OPERATIVE NEC 09/24/2015 Ot V74.8 SCREEN- BACTERIAL DIS NEC 09/24/2015 Ot 088.81 LYME DISEASE 09/24/2015 Ot V58.69 OT MED,LT, CURRENT USE 09/24/2015 Ot 088.81 LYME DISEASE 09/24/2015 Ot V58.69 OT MED,LT, CURRENT USE 09/24/2015 Ot 088.81 LYME DISEASE 09/24/2015 [...] ENTERING OT ORIFICE 09/24/2015 RUFUS, ANDREW A CHARGE ENTRY CLERK Ot 936 FB IN INTESTINE COLON 09/24/2015 ANDREW HOOPER CHARGE ENTRY CLERK Ot E000.8 OTHER EXTERNAL CAUSE STATUS 09/24/2015 ANDREW HOOPER CHARGE ENTRY CLERK Ot E849.0 ACCIDENT IN HOME 09/24/2015 ANDREW HOOPER CHARGE ENTRY CLERK Ot E915 FB ENTERING OT ORIFICE 09/24/2015 ELIA FRANZ DO Ot 937 FOREIGN BODY ANUS/RECTUM 09/24/2015 ELIA FRANZ DO Ot E000.8 OTHER EXTERNAL CAUSE STATUS 09/24/2015 ELIA FRANZ DO Ot E849.0 ACCIDENT IN HOME 09/24/2015 ELIA FRANZ DO Ot E915 FB ENTERING OT ORIFICE 09/24/2015 ELIA FRANZ DO Ot 790.7 BACTEREMIA 09/24/2015 ELIA FRANZ DO Ot 790.7 BACTEREMIA 09/24/2015 JEAN ARAUJOAC Ceron APRN Ot 790.7 BACTEREMIA 09/24/2015 ELIA FRANZ DO Ot 790.7 BACTEREMIA 09/24/2015 ANDREW FRANZ CHARGE ENTRY CLERK Ot 790.7 BACTEREMIA 09/24/2015 Ot 790.7 BACTEREMIA 09/24/2015 Ot 790.7 BACTEREMIA 09/24/2015 ANDREW FRANZ CHARGE ENTRY CLERK Ot V76.12 OTH SCREEN MAMMO-MALIGN NEOPLASM OF DMITRY 09/24/2015 ANDREW FRANZ CHARGE ENTRY CLERK Ot 719.45 JOINT PAIN-PELVIS 09/24/2015 ANDREW FRANZ CHARGE ENTRY CLERK Ot 722.4 CERVICAL DISC DEGEN 09/24/2015 ANDREW FRANZ CHARGE ENTRY CLERK Ot 724.2 LUMBAGO 09/24/2015 ANDREW FRANZ CHARGE ENTRY CLERK Ot 724.4 LUMBOSACRAL NEURITIS NOS 09/24/2015 ANDREW FRANZ CHARGE ENTRY CLERK Ot 625.9 FEM GENITAL SYMPTOMS NOS 09/24/2015 JOHANNA SALDANA DO Ot V72.84 EXAM PRE-OPERATIVE NOS 09/24/2015 ELIA FRANZ DO Ot V76.12 OTH SCREEN MAMMO-MALIGN NEOPLASM OF DMITRY 09/24/2015 ANDREW FRANZ CHARGE ENTRY CLERK Ot 473.9 CHRONIC SINUSITIS NOS 09/24/2015 FRANZANDREW RODRIGUES CHARGE ENTRY CLERK Ot 787.91 DIARRHEA 09/24/2015 OSEI ANDREW Coronado CHARGE ENTRY CLERK Ot Z12.31 ENCNTR SCREEN MAMMOGRAM FOR MALIGNANT NE 09/25/2015 ANDREW FRANZ CHARGE ENTRY CLERK Ot Z12.31 ENCNTR SCREEN MAMMOGRAM FOR MALIGNANT NE 10/15/2015 FRANZJEANANDREW L CHARGE ENTRY CLERK Ot Z12.31 ENCNTR SCREEN MAMMOGRAM FOR MALIGNANT [...] Ot 401.9 HYPERTENSION NOS 12/29/2015 Ot V72.63 PRE- PROCEDURAL LABORATORY EXAMINATION 12/29/2015 Ot V72.81 EXAM-PRE- OPERATIVE CARDIOVASCULAR 12/29/2015 Ot V72.83 EXAM PRE- OPERATIVE NEC 12/29/2015 Ot V74.8 SCREEN- BACTERIAL DIS NEC 12/29/2015 Ot 088.81 LYME DISEASE 12/29/2015 Ot V58.69 OT MED,LT, CURRENT USE 12/29/2015 Ot 088.81 LYME DISEASE 12/29/2015 Ot V58.69 OT MED,LT, CURRENT USE 12/29/2015 Ot 088.81 LYME DISEASE 12/29/2015 [...] FB ENTERING OTH ORIFICE 12/29/2015 ANDREW HOOPER CHARGE ENTRY CLERK Ot 936 FB IN INTESTINE COLON 12/29/2015 ANDREW HOOPER A CHARGE ENTRY CLERK Ot E000.8 OTHER EXTERNAL CAUSE STATUS 12/29/2015 ANDREW HOOPER A CHARGE ENTRY CLERK Ot E849.0 ACCIDENT IN HOME 12/29/2015 ANDREW HOOPER OSITO Ot E915 FB ENTERING OTH ORIFICE 12/29/2015 ELIA FRANZ DO Ot 937 FOREIGN BODY ANUS/RECTUM 12/29/2015 ELIA FRANZ DO Ot E000.8 OTHER EXTERNAL CAUSE STATUS 12/29/2015 ELIA FRANZ DO Ot E849.0 ACCIDENT IN HOME 12/29/2015 ELIA FRANZ DO Ot E915 FB ENTERING OTH ORIFICE 12/29/2015 ELIA FRANZ DO Ot 790.7 BACTEREMIA 12/29/2015 ELIA FRANZ DO Ot 790.7 BACTEREMIA 12/29/2015 ANDREW ARAUJO APRN Ot 790.7 BACTEREMIA 12/29/2015 ELIA FRANZ DO Ot 790.7 BACTEREMIA 12/29/2015 ANDREW FRANZP Ot 790.7 BACTEREMIA 12/29/2015 Ot 790.7 BACTEREMIA 12/29/2015 Ot 790.7 BACTEREMIA 12/29/2015 ANDREW FRANZ L CHARGE ENTRY CLERK Ot V76.12 OT SCREEN MAMMO-MALIGN NEOPLASM OF DMITRY 12/29/2015 ANDREW FRANZ L CHARGE ENTRY CLERK Ot 719.45 JOINT PAIN-PELVIS 12/29/2015 ANDREW FRANZ L CHARGE ENTRY CLERK Ot 722.4 CERVICAL DISC DEGEN 12/29/2015 ANDREW FRANZ L CHARGE ENTRY CLERK Ot 724.2 LUMBAGO 12/29/2015 ANRDEW FRANZ L CHARGE ENTRY CLERK Ot 724.4 LUMBOSACRAL NEURITIS NOS 12/29/2015 ANDREW FRANZ L CHARGE ENTRY CLERK Ot 625.9 FEM GENITAL SYMPTOMS NOS 12/29/2015 JOHANNA SALDANA DO Ot V72.84 EXAM PRE-OPERATIVE NOS 12/29/2015 ELIA FRANZ DO Ot V76.12 OTH SCREEN MAMMO-MALIGN NEOPLASM OF DMITRY 12/29/2015 JEAN FRANZRICIA Ivonne CHARGE ENTRY CLERK Ot 473.9 CHRONIC SINUSITIS NOS 12/29/2015 ANDREW FRANZ CHARGE ENTRY CLERK Ot 787.91 DIARRHEA 12/29/2015 ANDREW FRANZ CHARGE ENTRY CLERK Ot Z12.31 ENCNTR SCREEN MAMMOGRAM FOR MALIGNANT [...] Ot 401.9 HYPERTENSION NOS 12/30/2015 Ot V72.63 PRE- PROCEDURAL LABORATORY EXAMINATION 12/30/2015 Ot V72.81 EXAM-PRE- OPERATIVE CARDIOVASCULAR 12/30/2015 Ot V72.83 EXAM PRE- OPERATIVE NEC 12/30/2015 Ot V74.8 SCREEN- BACTERIAL DIS NEC 12/30/2015 Ot 088.81 LYME DISEASE 12/30/2015 Ot V58.69 OTH MED,LT, CURRENT USE 12/30/2015 Ot 088.81 LYME DISEASE 12/30/2015 Ot V58.69 OTH MED,LT, CURRENT USE 12/30/2015 Ot 088.81 LYME DISEASE 12/30/2015 ELIA FRANZ DO Ot 938 FOREIGN BODY GI NOS 12/30/2015 ELIA FRANZ DO Ot E000.8 OTHER EXTERNAL CAUSE STATUS 12/30/2015 ELIA FRANZ DO Ot E849.0 ACCIDENT IN HOME 12/30/2015 ELAI FRANZ DO Ot E915 FB ENTERING OTH ORIFICE 12/30/2015 ELIA FRANZ DO Ot 936 FB IN INTESTINE COLON 12/30/2015 ELIA FRANZ DO Ot E000.8 OTHER EXTERNAL CAUSE STATUS 12/30/2015 ELIA FRANZ DO Ot E849.0 ACCIDENT IN HOME 12/30/2015 ELIA FRANZ DO Ot E915 FB ENTERING OTH ORIFICE 12/30/2015 ANDREW HOOPER CHARGE ENTRY CLERK Ot 936 FB IN INTESTINE COLON 12/30/2015 KARLI HOOPERIA A CHARGE ENTRY CLERK Ot E000.8 OTHER EXTERNAL CAUSE STATUS 12/30/2015 KARLI HOOPERIA A OSITO Ot E849.0 ACCIDENT IN HOME 12/30/2015 ANDREW HOOPER OSITO Ot E915 FB ENTERING [...] DO Ot 790.7 BACTEREMIA 12/30/2015 ANDREW ARAUJO BLOCK SAWYER Ot 790.7 BACTEREMIA 12/30/2015 ELIA FRANZ DO Ot 790.7 BACTEREMIA 12/30/2015 ANDREW FRANZ CHARGE ENTRY CLERK Ot 790.7 BACTEREMIA 12/30/2015 Ot 790.7 BACTEREMIA 12/30/2015 Ot 790.7 BACTEREMIA 12/30/2015 ANDREW FRANZ L CHARGE ENTRY CLERK Ot V76.12 OTH SCREEN MAMMO-MALIGN NEOPLASM OF DMITRY 12/30/2015 ANDREW FRANZ CHARGE ENTRY CLERK Ot 719.45 JOINT PAIN-PELVIS 12/30/2015 ANDREW FRANZ L CHARGE ENTRY CLERK Ot 722.4 CERVICAL DISC DEGEN 12/30/2015 ANDREW FRANZ L CHARGE ENTRY CLERK Ot 724.2 LUMBAGO 12/30/2015 ANDREW FRANZ L CHARGE ENTRY CLERK Ot 724.4 LUMBOSACRAL NEURITIS NOS 12/30/2015 OSEI ANDREW L CHARGE ENTRY CLERK Ot 625.9 FEM GENITAL SYMPTOMS NOS 12/30/2015 JOHANNA SALDANA DO Martin Ot V72.84 EXAM PRE-OPERATIVE NOS 12/30/2015 ELIA FRANZ DO Ot V76.12 OTH SCREEN MAMMO-MALIGN NEOPLASM OF DMITRY 12/30/2015 ANDREW FRANZ CHARGE ENTRY CLERK Ot 473.9 CHRONIC SINUSITIS NOS 12/30/2015 ANDREW FRANZ CHARGE ENTRY CLERK Ot 787.91 DIARRHEA 12/30/2015 ANDREW FRANZ CHARGE ENTRY CLERK Ot Z12.31 ENCNTR SCREEN MAMMOGRAM FOR MALIGNANT NE 08/12/2016 Ot 729.5 PAIN IN LIMB 08/12/2016 Ot 793.89 OTH (ABN) FINDINGS ON RADIOLOGICAL EXAMI 08/12/2016 Ot 276.51 DEHYDRATION 08/12/2016 Ot 379.91 PAIN IN OR AROUND EYE 08/12/2016 Ot 781.2 ABNORMALITY OF GAIT 08/12/2016 Ot 784.0 HEADACHE 08/12/2016 Ot 088.81 LYME DISEASE 08/12/2016 Ot 401.9 HYPERTENSION NOS 08/12/2016 Ot V72.63 PRE- PROCEDURAL LABORATORY EXAMINATION 08/12/2016 Ot V72.81 EXAM-PRE- OPERATIVE CARDIOVASCULAR 08/12/2016 Ot V72.83 EXAM PRE- OPERATIVE NEC 08/12/2016 Ot V74.8 SCREEN- BACTERIAL DIS NEC 08/12/2016 Ot 088.81 LYME DISEASE 08/12/2016 Ot V58.69 OT MED,LT, CURRENT USE 08/12/2016 Ot 088.81 LYME DISEASE 08/12/2016 Ot V58.69 OT MED,LT, CURRENT USE 08/12/2016 Ot 088.81 LYME DISEASE 08/12/2016 ELIA FRANZ DO Ot 938 FOREIGN BODY GI NOS 08/12/2016 ELIA FRANZ DO Ot E000.8 OTHER EXTERNAL CAUSE STATUS 08/12/2016 ELIA FRANZ DO Ot E849.0 ACCIDENT IN HOME 08/12/2016 ELIA FRAZN DO Ot E915 FB ENTERING OTH ORIFICE 08/12/2016 ELIA FRANZ DO Ot 936 FB IN INTESTINE COLON 08/12/2016 ELIA FRANZ DO Ot E000.8 OTHER EXTERNAL CAUSE STATUS 08/12/2016 ELIA FRANZ DO Ot E849.0 ACCIDENT IN HOME 08/12/2016 ELIA FRANZ DO Ot E915 FB ENTERING OTH ORIFICE 08/12/2016 ANDREW HOOPER CHARGE ENTRY CLERK Ot 936 FB IN INTESTINE COLON 08/12/2016 ANDREW HOOPER CHARGE ENTRY CLERK Ot E000.8 OTHER EXTERNAL CAUSE STATUS 08/12/2016 [...] FRANZ DO Ot 790.7 BACTEREMIA 08/12/2016 ANDREW ARAUJO APRN Ot 790.7 BACTEREMIA 08/12/2016 ELIA FRANZ DO Ot 790.7 BACTEREMIA 08/12/2016 ANDREW FRANZ CHARGE ENTRY CLERK Ot 790.7 BACTEREMIA 08/12/2016 Ot 790.7 BACTEREMIA 08/12/2016 Ot 790.7 BACTEREMIA 08/12/2016 ANDREW FRANZ CHARGE ENTRY CLERK Ot V76.12 OT SCREEN MAMMO-MALIGN NEOPLASM OF DMITRY 08/12/2016 ANDREW FRANZ CHARGE ENTRY CLERK Ot 719.45 JOINT PAIN-PELVIS 08/12/2016 ANDREW FRANZ L CHARGE ENTRY CLERK Ot 722.4 CERVICAL DISC DEGEN 08/12/2016 ANDREW FRANZ CHARGE ENTRY CLERK Ot 724.2 LUMBAGO 08/12/2016 ANDREW FRANZ CHARGE ENTRY CLERK Ot 724.4 LUMBOSACRAL NEURITIS NOS 08/12/2016 ANDREW FRANZ L CHARGE ENTRY CLERK Ot 625.9 FEM GENITAL SYMPTOMS NOS 08/12/2016 JOHANNA SALDANA DO Ot V72.84 EXAM PRE-OPERATIVE NOS 08/12/2016 ELIA FRANZ DO Ot V76.12 OTH SCREEN MAMMO-MALIGN NEOPLASM OF DMITRY 08/12/2016 ANDREW FRANZ CHARGE ENTRY CLERK Ot 473.9 CHRONIC SINUSITIS NOS 08/12/2016 OSEI ANDREW [place] CHARGE ENTRY CLERK Ot 787.91 DIARRHEA 08/12/2016 ANDREW FRANZ CHARGE ENTRY CLERK Ot Z12.31 ENCNTR SCREEN MAMMOGRAM FOR MALIGNANT NE 08/31/2016 ANDREW FRANZ CHARGE ENTRY CLERK Ot M54.2 CERVICALGIA 09/21/2016 ANDREW FRANZ CHARGE ENTRY CLERK Ot M54.2 CERVICALGIA 09/21/2016 ANDREW FRANZ CHARGE ENTRY CLERK Ot R20.0 ANESTHESIA OF SKIN 10/03/2016 Ot 088.81 LYME DISEASE 10/03/2016 Ot V58.69 OTH MED,LT, CURRENT USE 10/03/2016 Ot 088.81 LYME DISEASE 10/03/2016 Ot 790.7 BACTEREMIA 10/03/2016 Ot 790.7 BACTEREMIA 10/03/2016 JOHANNA SALDANA DO Ot K64.9 UNSPECIFIED HEMORRHOIDS 10/03/2016 JOHANNA SALDANA DO Ot Z01.818 ENCOUNTER FOR OTHER PREPROCEDURAL EXAMIN 10/03/2016 JOHANNA SALDANA DO Ot Z12.11 ENCOUNTER FOR SCREENING FOR MALIGNANT NE 10/06/2016 JOHANNA SALDANA DO Ot A69.20 LYME DISEASE, UNSPECIFIED 10/06/2016 JOHANNA SALDANA DO Ot E03.9 HYPOTHYROIDISM, UNSPECIFIED 10/06/2016 JOHANNA SALDANA DO Ot E10.40 TYPE 1 DIABETES MELLITUS WITH DIABETIC N 10/06/2016 JOHANNA SALDANA DO Ot F41.9 ANXIETY DISORDER, UNSPECIFIED 10/06/2016 JOHANNA SALDANA DO Ot K64.4 RESIDUAL HEMORRHOIDAL SKIN TAGS 10/06/2016 JOHANNA SALDANA DO Ot Z12.11 ENCOUNTER FOR SCREENING FOR MALIGNANT NE 10/06/2016 JOHANNA SALDANA DO Ot 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 10/11/2016 JOHANNA SALDANA DO Ot A69.20 LYME [...] 10/11/2016 JOHANNA SALDANA DO Ot 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 10/20/2016 ANDREW FRANZ Ot Z12.31 ENCNTR SCREEN MAMMOGRAM FOR MALIGNANT NE 11/10/2016 Ot 276.51 DEHYDRATION 11/10/2016 Ot 379.91 PAIN IN OR AROUND EYE 11/10/2016 Ot 781.2 ABNORMALITY OF GAIT 11/10/2016 Ot 784.0 HEADACHE 11/10/2016 Ot 088.81 LYME DISEASE 11/10/2016 Ot 401.9 HYPERTENSION NOS 11/10/2016 Ot V72.63 PRE- PROCEDURAL LABORATORY EXAMINATION 11/10/2016 Ot V72.81 EXAM-PRE- OPERATIVE CARDIOVASCULAR 11/10/2016 Ot V72.83 EXAM PRE- OPERATIVE NEC 11/10/2016 Ot V74.8 SCREEN- BACTERIAL DIS NEC 11/10/2016 Ot 088.81 LYME DISEASE 11/10/2016 Ot V58.69 OT MED,LT, CURRENT USE 11/10/2016 Ot 088.81 LYME DISEASE 11/10/2016 Ot V58.69 OT MED,LT, CURRENT USE 11/10/2016 Ot 088.81 LYME DISEASE 11/10/2016 ELIA FRANZ DO Ot 938 FOREIGN BODY GI NOS 11/10/2016 ELIA FRANZ DO Ot E000.8 OTHER EXTERNAL CAUSE STATUS 11/10/2016 ELIA FRANZ DO Ot E849.0 ACCIDENT IN HOME 11/10/2016 ELIA FRANZ DO Ot E915 FB ENTERING OTH ORIFICE 11/10/2016 ELIA FRANZ DO Ot 936 FB IN INTESTINE COLON 11/10/2016 ELIA FRANZ DO Ot E000.8 OTHER EXTERNAL CAUSE STATUS 11/10/2016 FRANZ DO, ELIA J Ot E849.0 ACCIDENT IN HOME 11/10/2016 ELIA FRANZ DO Ot E915 FB ENTERING OTH ORIFICE 11/10/2016 ANDREW HOOPER CHARGE ENTRY CLERK Ot 936 FB IN INTESTINE COLON 11/10/2016 ANDREW HOOPER CHARGE ENTRY CLERK Ot E000.8 OTHER EXTERNAL CAUSE STATUS 11/10/2016 ANDREW HOOPER CHARGE ENTRY CLERK Ot E849.0 ACCIDENT IN HOME 11/10/2016 ANDREW HOOPER OSITO Ot E915 FB ENTERING OTH ORIFICE 11/10/2016 ELIA FRANZ DO Ot 937 FOREIGN BODY ANUS/RECTUM 11/10/2016 ELIA FRANZ DO Ot E000.8 OTHER EXTERNAL CAUSE STATUS 11/10/2016 ELIA FRANZ DO Ot E849.0 ACCIDENT IN HOME 11/10/2016 ELIA FRANZ DO Ot E915 FB ENTERING OTH ORIFICE 11/10/2016 ELIA FRANZ DO Ot 790.7 BACTEREMIA 11/10/2016 ELIA FRANZ DO Ot 790.7 BACTEREMIA 11/10/2016 AWAISKARLI CERDARUCHI Ceron BLOCK SAWYER Ot 790.7 BACTEREMIA 11/10/2016 ELIA FRANZ DO Ot 790.7 BACTEREMIA 11/10/2016 ANDREW FRANZ CHARGE ENTRY CLERK Ot 790.7 BACTEREMIA 11/10/2016 Ot 790.7 BACTEREMIA 11/10/2016 Ot 790.7 BACTEREMIA 11/10/2016 ANDREW FRANZ CHARGE ENTRY CLERK Ot V76.12 OTH SCREEN MAMMO-MALIGN NEOPLASM OF DMITRY 11/10/2016 ANDREW FRANZ CHARGE ENTRY CLERK Ot 719.45 JOINT PAIN-PELVIS 11/10/2016 ANDREW FRANZ L CHARGE ENTRY CLERK Ot 722.4 CERVICAL DISC DEGEN 11/10/2016 ANDREW FRANZ CHARGE ENTRY CLERK Ot 724.2 LUMBAGO 11/10/2016 ANDREW FRANZ CHARGE ENTRY CLERK Ot 724.4 LUMBOSACRAL NEURITIS NOS 11/10/2016 ANDREW FRANZ CHARGE ENTRY CLERK Ot 625.9 FEM GENITAL SYMPTOMS NOS 11/10/2016 JOHANNA SALDANA DO Ot V72.84 EXAM PRE-OPERATIVE NOS 11/10/2016 FRANZ DO, ELIA J Ot V76.12 OTH SCREEN MAMMO-MALIGN NEOPLASM OF DMITRY 11/10/2016 OSEIANDREW CHARGE ENTRY CLERK Ot 473.9 CHRONIC SINUSITIS NOS 11/10/2016 OSEIANDREW CHARGE ENTRY CLERK Ot 787.91 DIARRHEA 11/10/2016 OSEIANDREW CHARGE ENTRY CLERK Ot Z12.31 ENCNTR SCREEN MAMMOGRAM FOR MALIGNANT NE 11/10/2016 OSEIANDREW CHARGE ENTRY CLERK Ot Z12.31 ENCNTR SCREEN MAMMOGRAM FOR MALIGNANT NE 11/10/2016 OSEIANDREW CHARGE ENTRY CLERK Ot M54.2 CERVICALGIA 11/10/2016 OSEI ANDREW Coronado CHARGE ENTRY CLERK Ot M54.2 CERVICALGIA 11/10/2016 OSEI ANDREW Coronado CHARGE ENTRY CLERK Ot R20.0 ANESTHESIA OF SKIN 12/29/2016 KIKE ZAZUETA CHARGE ENTRY CLERK Ot E03.9 HYPOTHYROIDISM, UNSPECIFIED 12/29/2016 MARBIN, KIKE CHARGE ENTRY CLERK Ot E11.9 TYPE 2 DIABETES MELLITUS WITHOUT COMPLIC 12/29/2016 MARBIN, KIKE CHARGE ENTRY CLERK Ot F41.9 ANXIETY DISORDER, UNSPECIFIED 12/29/2016 MARBIN, KIKE CHARGE ENTRY CLERK Ot G40.909 EPILEPSY, UNSP, NOT INTRACTABLE, WITHOUT 12/29/2016 MARBIN, KIKE CHARGE ENTRY CLERK Ot G43.909 MIGRAINE, UNSP, NOT INTRACTABLE, WITHOUT 12/29/2016 MARBIN, KIKE CHARGE ENTRY CLERK Ot R06.00 DYSPNEA, UNSPECIFIED 12/29/2016 MARBIN, KIKE CHARGE ENTRY CLERK Ot S13.9XXA SPRAIN OF JOINTS AND LIGAMENTS OF UNSP P 12/29/2016 MARBIN KIKE CHARGE ENTRY CLERK Ot X58.XXXA EXPOSURE TO OTHER SPECIFIED FACTORS, INI 12/29/2016 MARBIN KIKE CHARGE ENTRY CLERK Ot 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 Results Test Result Range Methicillin resistant Staphylococcus [...] measurement by glucometer (mass/volume) 93 mg/dL 70-110 Complete urinalysis with reflex to culture - 12/29/16 14:40 Urine color determination YELLOW NRG Urine clarity determination CLEAR NRG Urine pH measurement by test strip 7 5-9 Specific gravity of urine by test strip 1.010 1.016- 1.022 Urine protein assay by test strip, semi-quantitative NEGATIVE NEGATIVE Urine glucose detection by automated test strip NEGATIVE NEGATIVE Erythrocytes detection in urine sediment by light microscopy NEGATIVE NEGATIVE Urine ketones detection by automated test strip 2+ NEGATIVE Urine nitrite detection by test strip NEGATIVE NEGATIVE Urine total bilirubin detection by test strip NEGATIVE NEGATIVE Urine urobilinogen measurement by automated test strip (mass/volume) NORMAL NORMAL Urine leukocyte esterase detection by dipstick 1+ NEGATIVE Automated urine sediment erythrocyte count by microscopy (number/high power field) NONE NRG Automated urine sediment leukocyte count by microscopy (number/high power field ) [HPF] NRG Bacteria detection in urine sediment by light microscopy NEGATIVE NRG Squamous epithelial cells detection in urine sediment by light microscopy 0-2 NRG Crystals detection in urine sediment by light microscopy NONE NRG Casts detection in urine sediment by light microscopy NONE NRG Mucus detection in urine sediment by light microscopy NEGATIVE NRG Complete urinalysis with reflex to culture NO NRG Complete blood count (CBC) with automated white blood cell (WBC) differential - 12/29/16 14:50 Blood leukocytes automated count (number/volume) 7.6 10*3/uL 4.3-11.0 Blood erythrocytes automated count (number/volume) 4.47 10*6/uL 4.35-5.85 Venous blood hemoglobin measurement (mass/volume) 13.9 g/dL 11.5-16.0 Blood hematocrit (volume fraction) 40 % 35-52 Automated erythrocyte mean corpuscular volume 89 [foz_us] 80-99 Automated erythrocyte mean corpuscular hemoglobin (mass per erythrocyte) 31 pg 25-34 Automated erythrocyte mean corpuscular hemoglobin concentration measurement ( mass/volume) 35 g/dL 32-36 Automated erythrocyte distribution width ratio 12.2 % 10.0-14.5 Automated blood platelet count (count/volume) 300 10*3/uL 130-400 Automated blood platelet mean volume measurement 10.0 [foz_us] 7.4-10.4 Automated blood neutrophils/100 leukocytes 57 % 42-75 Automated blood lymphocytes/100 leukocytes 33 % 12-44 Blood monocytes/100 leukocytes 8 % 0-12 Automated blood eosinophils/100 leukocytes 1 % 0-10 Automated blood basophils/100 leukocytes 1 % 0-10 Blood neutrophils automated count (number/volume) 4.3 10*3 1.8-7.8 Blood lymphocytes automated count (number/volume) 2.5 10*3 1.0-4.0 Blood monocytes automated count (number/volume) 0.6 10*3 0.0-1.0 Automated eosinophil count 0.1 10*3/uL 0.0-0.3 Automated blood basophil count (count/volume) 0.0 10*3/uL 0.0-0.1 Erythrocyte sedimentation rate by westergren method - 12/29/16 14:50 Erythrocyte sedimentation rate by westergren method 6 mm 0-20 Comprehensive metabolic panel - 12/29/16 14:50 Serum or plasma sodium measurement (moles/volume) 138 mmol/L 135-145 Serum or plasma potassium measurement (moles/volume) 3.8 mmol/L 3.6-5.0 Serum or plasma chloride measurement (moles/volume) 106 mmol/L 98-107 Carbon dioxide 23 mmol/L 21-32 Serum or plasma anion gap determination (moles/volume) 9 mmol/L 5-14 Serum or plasma urea nitrogen measurement (mass/volume) 11 mg/dL 7-18 Serum or plasma creatinine measurement (mass/volume) 0.96 mg/dL 0.60-1.30 Serum or plasma urea nitrogen/creatinine mass ratio 11 NRG Serum or plasma creatinine measurement with calculation of estimated glomerular filtration rate > NRG Serum or plasma glucose measurement (mass/volume) 126 mg/dL 70-105 Serum or plasma calcium measurement (mass/volume) 9.4 mg/dL 8.5-10.1 Serum or plasma total bilirubin measurement (mass/volume) 0.3 mg/dL 0.1-1.0 Serum or plasma alkaline phosphatase measurement (enzymatic activity/volume) 70 U/L 40-136 Serum or plasma aspartate aminotransferase measurement (enzymatic activity/ volume) 16 U/L 5-34 Serum or plasma alanine aminotransferase measurement (enzymatic activity/volume ) 12 U/L 0-55 Serum or plasma protein measurement (mass/volume) 6.4 g/dL 6.4-8.2 Serum or plasma albumin measurement (mass/volume) 4.0 g/dL 3.2-4.5 Serum or plasma urea nitrogen measurement (mass/volume) - 04/12/17 16:45 Serum or plasma urea nitrogen measurement (mass/volume) 14 mg/dL 7-18 Serum or plasma creatinine measurement (mass/volume) - 04/12/17 16:45 Serum or plasma creatinine measurement (mass/volume) 0.88 mg/dL 0.60-1.30 Encounters ACCT No. Visit Date/Time Discharge Status Pt. Type Provider Facility Loc./Unit Complaint [id number] 04/12/2017 16:18:00 04/12/2017 23:59:59 CLS Outpatient ANITA COTTO MD [facility] RAD VESTIBULAR MIGRAINE [id number] 12/29/2016 14:18:00 12/29/2016 17:01:00 DIS Emergency KIKE ZAZUETA [facility] ER SOA [id number] 10/06/2016 06:11:00 10/06/2016 11:54:00 DIS Outpatient JOHANNA SALDANA DO [facility] SDC HEMORRHOIDS; SCREENING [id number] 10/03/2016 05:33:00 10/03/2016 12:32:00 DIS Outpatient JOHANNA SALDANA DO [facility] PREOP HEMORRHOIDS; SCREENING [id number] 09/23/2016 10:02:00 09/23/2016 23:59:59 CLS Outpatient ANDREW FRANZ CHARGE ENTRY CLERK [facility] RAD SCREENING Z12.31 [id number] 08/30/2016 15:14:00 08/30/2016 23:59:59 CLS Outpatient ANDREW FRANZ L CHARGE ENTRY CLERK [facility] RAD ARM NUMBNESS/NECK PAIN [id number] 08/12/2016 11:47:00 08/12/2016 23:59:59 CLS Outpatient ANDREW FRANZ CHARGE ENTRY CLERK [facility] RAD NECK PAIN [id number] 09/22/2015 09:26:00 09/22/2015 23:59:59 CLS Outpatient ANDREW FRANZ Ivonne CHARGE ENTRY CLERK [facility] RAD ROUTINE [id number] 08/04/2015 13:00:00 08/04/2015 16:09:00 DIS Emergency JL PERDOMO [facility] ER L SIDED ABD PAIN [id number] 12/10/2014 17:07:00 12/10/2014 23:59:59 CLS Outpatient FRANZ ANDREW Ivonne CHARGE ENTRY CLERK [facility] LAB SEVERE DIARRHEA [id number] 10/24/2014 13:06:00 10/24/2014 23:59:59 CLS Outpatient FRANZ ANDREW Ivnone CHARGE ENTRY CLERK [facility] RAD SINUSITIS [id number] 09/02/2014 13:52:00 09/02/2014 23:59:59 CLS Outpatient ELIA FRANZ DO [facility] RAD SCREENING [id number] 03/24/2014 10:40:00 03/25/2014 10:08:00 DIS Inpatient ELIA FRANZ DO [facility] 4TH F/U [id number] 03/10/2014 06:07:00 03/10/2014 23:59:59 CLS Outpatient JOHANNA SALDANA DO [facility] PREOP ABD PAIN [id number] 01/13/2014 15:15:00 01/13/2014 23:59:59 CLS Outpatient ANDREW FRANZ CHARGE ENTRY CLERK [facility] RAD PELVIC PAIN [id number] 11/15/2013 14:07:00 11/15/2013 23:59:59 CLS Outpatient ANDREW FRANZ CHARGE ENTRY CLERK [facility] RAD DDD,LUMBALGIA WITH RADIOGRAPHY [id number] 10/30/2013 11:01:00 10/30/2013 23:59:59 CLS Outpatient FRANZ, ANDREW Ivonne CHARGE ENTRY CLERK [facility] RAD BILAT HIP PAIN, UPPER EXT PARESTHESIA [id number] 08/30/2013 07:04:00 08/30/2013 23:59:59 CLS Outpatient FRANZ, ANDREW Ivonne CHARGE ENTRY CLERK [facility] RAD SCREENING [id number] 03/04/2013 14:36:00 05/27/2013 00:01:00 DIS Outpatient FRANZKARLI WINTERSIA Ivonne CHARGE ENTRY CLERK [facility] LAB BACTEREMIA [id number] 02/15/2013 14:08:00 04/18/2013 00:01:00 DIS Outpatient FRANZANDREW WINTERS CHARGE ENTRY CLERK [facility] BAOTEREMIA [id number] 04/02/2013 12:56:00 04/02/2013 23:59:59 CLS Outpatient FRANZKARLI WINTERSIA Ivonne CHARGE ENTRY CLERK [facility] BACTEREMIA [id number] 03/16/2013 17:44:00 03/16/2013 23:59:59 CLS Outpatient ELIA FRANZ DO [facility] BACTEREMIA [id number] 03/03/2013 20:36:00 03/04/2013 00:05:00 DIS Emergency SOLANGE CALLOWAY MD [facility] ER SWOLLEN LYMPH NODES; HEADACHE [id number] 02/21/2013 16:13:00 02/21/2013 23:59:59 CLS Outpatient ANDREW ARAUJO APRN [facility] LAB BACTEREMIA [id number] 02/15/2013 14:03:00 02/15/2013 23:59:59 CLS Outpatient ELIA FRANZ DO [facility] BACTEREMIA [id number] 02/13/2013 13:41:00 02/13/2013 23:59:59 CLS Outpatient ELIA FRANZ DO [facility] LAB BACTEREMIA [id number] 01/21/2013 15:59:00 01/21/2013 23:59:59 CLS Outpatient ELIA FRANZ DO [facility] RAD SWALLOWED DENTAL BRIDGE [id number] 01/18/2013 16:35:00 01/18/2013 23:59:59 CLS Outpatient ANDREW HOOPER CHARGE ENTRY CLERK [facility] RAD SWALLOWED DENTAL BRIDGE [id number] 01/16/2013 16:15:00 01/16/2013 23:59:59 CLS Outpatient ELIA FRANZ DO [facility] RAD FORIEGN BODY [id number] 01/14/2013 16:13:00 01/14/2013 23:59:59 CLS Outpatient ELIA FRANZ DO [facility] RAD FOREIGN BODY IN BODY [id number] 12/17/2012 16:18:00 12/25/2012 00:01:00 DIS Outpatient FRANZ ANDREW L CHARGE ENTRY CLERK [facility] LYME'S DI [id number] 08/20/2012 12:59:00 11/18/2012 00:01:00 DIS Outpatient ANDREW FRANZ Ivonne CHARGE ENTRY CLERK [facility] ACCESS PORT [id number] 05/28/2013 00:00:00 Document Registration [id number] 04/19/2013 00:00:00 Document Registration [id number] 12/26/2012 00:00:00 Document Registration [id number] 11/19/2012 00:00:00 Document Registration [id number] 07/05/2012 10:30:00 Document Registration [id number] 06/19/2012 08:56:00 Document Registration [id number] 06/18/2012 14:24:00 Document Registration [id number] 02/07/2012 20:07:00 Document Registration [id number] 10/27/2011 10:31:00 Document Registration [id number] 06/22/2011 15:34:00 Document Registration [id number] 05/16/2011 13:32:00 Document Registration [id number] 04/05/2011 11:40:00 Document Registration [id number] 11/08/2010 14:59:00 Document Registration [id number] 10/22/2010 09:41:00 Document Registration [id number] 10/21/2009 13:16:00 Document Registration [id number] 10/14/2008 08:45:00 Document Registration [id number] 09/04/2008 09:54:00 Document Registration [id number] 12/11/2014 07:21:53 ACT Document Registration
[2017-06-20] MEDS ORDERED: HEParin (CENTRAL IV FLUSH) 500 UNIT/5 ML SYR ONE (06:00)
[2017-06-20 06:12] VITALS: BP 107/73
[2017-06-20] MEDS ORDERED: HEParin (CENTRAL IV FLUSH) 500 UNIT/5 ML SYR IV ONE (06:15)
== END 2017-06-20 06:12 | disposition home or self-care (01) ==
LOC: EDUNIT# 04:11 → ER 04:13
DX: E11.65 Type 2 diabetes mellitus with hyperglycemia (principal); F41.9 Anxiety disorder, unspecified; G43.909 Migraine, unspecified, not intractable, without status migrainosus; G40.909 Epilepsy, unspecified, not intractable, without status epilepticus; Z87.19 Personal history of other diseases of the digestive system; Z87.442 Personal history of urinary calculi; Z82.49 Family history of ischemic heart disease and other diseases of the circulatory system; Z88.1 Allergy status to other antibiotic agents; Z88.5 Allergy status to narcotic agent; Z79.4 Long term (current) use of insulin; Z87.59 Personal history of other complications of pregnancy, childbirth and the puerperium; Z90.710 Acquired absence of both cervix and uterus
CPT/HCPCS: 36415; 80053; 80061; 80320; 81000; 82962; 83735; 83930; 85025; 96360; 96372

== ENCOUNTER → 2017-09-29 | Outpatient (CLI) | payer BC ==
--- NOTE | 2017-09-29 10:40 | Diagnostic Imaging Report ---
Indication: Routine screening. Comparison is made with prior mammogram from 09/23/2016 and 09/22/2015. 2-D and 3-D bilateral screening mammography was performed with CAD. Scattered fibroglandular densities are identified bilaterally. The parenchymal pattern is stable. No mass or malignant appearing microcalcifications are seen. Axillae are unremarkable. Right axilla does contain an Kzgpju-s-Lvax hub. Impression: BI-RADS category one No mammographic features suspicious for malignancy are identified. ACR BI-RADS Category 1: Negative. Result letter will be mailed to the patient. Note: At least 10% of breast cancer is not imaged by mammography. Dictated by: Dictated on workstation # [id number]
== END ==
LOC: RAD 08:47
PROVIDERS: ATTEND Nurse Practitioner Family
DX: Z12.31 Encounter for screening mammogram for malignant neoplasm of breast (principal)
CPT/HCPCS: 77067

== ENCOUNTER → 2018-02-15 | Outpatient (CLI) | payer BC ==
--- NOTE | 2018-02-15 16:47 | Diagnostic Imaging Report ---
PROCEDURE: CT maxillofacial without contrast. TECHNIQUE: Multiple contiguous axial images were obtained through the facial bones without the use of intravenous contrast. INDICATION: Recent dental extraction with oral region pain, headache and fever. FINDINGS: There are focal lucencies within the left maxillary alveolar ridge and within the left mandible. These would correspond to recent extractions posterior most left maxillary molar and possible left mandibular premolar. Is also lucency within the marrow anterior to the remaining left mandibular molar. This may be related to previous extraction although possibility of abscess is not excluded. There is no significant air-fluid level seen within the adjacent paranasal sinuses. Note is made of periapical lucency involving the posterior most right maxillary tooth. No focal fluid collection is identified. Remainder the maxillofacial structures. The intact although there are numerous calcifications within the pelvic and tonsil, bilaterally. IMPRESSION: 1. Multiple lucencies within the maxilla, bilaterally, as well as the left mandible likely related to previous dental extractions. In addition, there is evidence of periapical abscess within the posterior most right maxillary tooth. 2. No sinusitis is identified. Visualized portions of the intracranial structures are unremarkable. Dictated by: Dictated on workstation # [id number]
== END ==
LOC: RAD 15:57
PROVIDERS: ATTEND Internal Medicine
DX: K04.7 Periapical abscess without sinus (principal); R50.9 Fever, unspecified; R51 Headache
CPT/HCPCS: 70486

== ENCOUNTER → 2018-10-01 | Outpatient (CLI) | payer BC ==
[~2018-10-01] VITALS: Ht 175.3 cm; Wt 88.5 kg
[~2018-10-01] MED LIST changes: +CATHETER FLUSH 10 ML SYR IV PRN
[2018-10-01 08:29] VITALS: BP 108/78
--- NOTE | 2018-10-01 19:47 | Diagnostic Imaging Report ---
INDICATION: Routine screening. Comparison is made with prior mammograms from 09/29/2017 and 09/23/2016. 2-D and 3-D bilateral screening mammography was performed. The current study was also evaluated with a Computer Aided Detection (CAD) system. 3-D tomosynthesis was also performed and reviewed. FINDINGS: Scattered fibroglandular densities are identified bilaterally. The parenchymal pattern is stable. No mass or malignant-appearing microcalcifications are seen. Pkmqsn-l-Wnol hub in the right axilla is again noted. IMPRESSION: No mammographic features suspicious for malignancy are identified. ACR BI-RADS Category 1: Negative. Result letter will be mailed to the patient. Note: At least 10% of breast cancer is not imaged by mammography. Dictated by: Dictated on workstation # [id number]
== END ==
LOC: CARD 06:47
PROVIDERS: ATTEND Nurse Practitioner Family
DX: Z12.31 Encounter for screening mammogram for malignant neoplasm of breast (principal); R00.2 Palpitations
CPT/HCPCS: 77067; 78452; 93017

== ENCOUNTER 2018-12-26 11:05 | Outpatient (CLI) | payer BC ==
[~2018-12-26] VITALS: Ht 175.3 cm; Wt 88.2 kg
[~2018-12-26 11:05] MED LIST changes: -CATHETER FLUSH 10 ML SYR IV PRN; +TEST2.5G10 TD; -TEST2.5G6 TD
[2018-12-26] MEDS ORDERED: cefTRIAXone 1,000 MG/SWFI 10 ML IV PUSH IV ONE ×2 (11:45)
[2018-12-26 12:02] VITALS: BP 114/80
== END 2018-12-26 12:08 | disposition home or self-care (01) ==
LOC: SDC 11:05
PROVIDERS: ATTEND Nurse Practitioner Family
DX: A69.20 Lyme disease, unspecified (principal)
CPT/HCPCS: 96374

== ENCOUNTER 2019-03-06 13:53 | Outpatient (RCR) | payer BC ==
[2019-02-26 10:33] LABS: BASOPHILS % (AUTO) 1 % (0-10); EOSINOPHILS # (AUTO) 0.1 10^3/uL (0.0-0.3); EOSINOPHILS % (AUTO) 1 % (0-10); HEMATOCRIT 43 % (35-52); HEMOGLOBIN 14.5 G/DL (11.5-16.0); LYMPHOCYTES # (AUTO) 2.1 X 10^3 (1.0-4.0); LYMPHOCYTES % (AUTO) 37 % (12-44); MEAN CORPUSCULAR HEMOGLOBIN 31 PG (25-34); MEAN CORPUSCULAR HGB CONC 34 G/DL (32-36); MEAN CORPUSCULAR VOLUME 92 FL (80-99); MONOCYTES # (AUTO) 0.4 X 10^3 (0.0-1.0); MONOCYTES % (AUTO) 8 % (0-12); NEUTROPHILS % (AUTO) 53 % (42-75); PLATELET COUNT 264 10^3/uL (130-400); RED CELL DISTRIBUTION WIDTH 12.2 % (10.0-14.5); WHITE BLOOD COUNT 5.6 10^3/uL (4.3-11.0)
[2019-02-26 10:56] LABS: ALANINE AMINOTRANSFERASE 22 U/L (0-55); ALBUMIN 4.4 GM/DL (3.2-4.5); ALKALINE PHOSPHATASE 83 U/L (40-136); BILIRUBIN,TOTAL 0.3 MG/DL (0.1-1.0); BUN/CREATININE RATIO 14; CALCIUM 9.5 MG/DL (8.5-10.1); CARBON DIOXIDE 25 MMOL/L (21-32); CHLORIDE 105 MMOL/L (98-107); CREATININE SERUM 0.95 MG/DL (0.60-1.30); GFR ESTIMATED > 60; GLUCOSE 138 MG/DL (70-105); POTASSIUM 4.4 MMOL/L (3.6-5.0); SODIUM 140 MMOL/L (135-145); TOTAL PROTEIN 6.9 GM/DL (6.4-8.2)
[~2019-03-06 13:53] MED LIST changes: +PYRI100T10 PO; -PYRI100T2 PO; -TRAM50TA2 PO; +TRM50T PO; +VITA-272 PO; -VITA400C58 PO
== END 2019-05-27 | disposition home or self-care (01) ==
LOC: ONC 13:53
PROVIDERS: ATTEND Internal Medicine Hematology & Oncology
DX: D80.3 Selective deficiency of immunoglobulin G [IgG] subclasses (principal); A69.20 Lyme disease, unspecified
CPT/HCPCS: 80053; 82784; 84443; 85025; 99214

== ENCOUNTER → 2019-04-15 | Outpatient (CLI) | payer BC ==
[~2019-04-15] MED LIST changes: -PYRI100T10 PO; +PYRI100T4 PO
== END ==
LOC: RAD 14:26
PROVIDERS: ATTEND Internal Medicine
DX: E03.9 Hypothyroidism, unspecified (principal); R14.0 Abdominal distension (gaseous)

== ENCOUNTER → 2019-04-15 | Outpatient (CLI) | payer BC ==
[2019-04-15 12:22] LABS: HEMOGLOBIN 13.9 G/DL (11.5-16.0); MEAN PLATELET VOLUME 9.7 FL (7.4-10.4); WHITE BLOOD COUNT 6.6 10^3/uL (4.3-11.0)
[2019-04-15 12:41] LABS: ALBUMIN 4.2 GM/DL (3.2-4.5); BILIRUBIN,TOTAL 0.3 MG/DL (0.1-1.0); CALCIUM 9.1 MG/DL (8.5-10.1); CREATININE SERUM 1.09 MG/DL (0.60-1.30); POTASSIUM 4.4 MMOL/L (3.6-5.0); TOTAL PROTEIN 6.5 GM/DL (6.4-8.2)
--- NOTE | 2019-04-15 15:23 | Diagnostic Imaging Report ---
INDICATION: Abdominal distention and pain. FINDINGS: The liver is normal in size at 15.6 cm. No discrete liver mass is detected. The portal vein is patent and shows normal direction of flow. Gallbladder is surgically absent. No biliary ductal dilatation is seen. Pancreas was obscured by overlying bowel gas. The spleen is normal at 9.7 cm. The visualized abdominal aorta is nonaneurysmal. IVC is patent. Kidneys appear to be normal in size. No calculi or hydronephrosis is detected. IMPRESSION: Status post cholecystectomy. No acute features detected. Dictated by: Dictated on workstation # [id number]
== END ==
LOC: RAD 12:08
PROVIDERS: ATTEND Family Medicine
DX: E03.9 Hypothyroidism, unspecified (principal); R14.0 Abdominal distension (gaseous)
CPT/HCPCS: 36415; 76700; 80053; 84443; 85027

== ENCOUNTER → 2019-10-03 | Outpatient (CLI) | payer BC ==
[~2019-10-03] MED LIST changes: +PYRI100T10 PO; -PYRI100T4 PO
--- NOTE | 2019-10-03 12:45 | Diagnostic Imaging Report ---
INDICATION: Routine screening. Comparison is made with prior mammogram 10/01/2018 and 09/29/2017. 2-D and 3-D bilateral screening mammography was performed with CAD. Scattered fibroglandular densities are identified bilaterally. The parenchymal pattern is stable. No mass or malignant appearing microcalcifications are seen. Axillae demonstrate Bkkslz-c-Fovo hub in the right axilla. IMPRESSION: BI-RADS Category 1 No mammographic features suspicious for malignancy are identified. ACR BI-RADS Category 1: Negative. Result letter will be mailed to the patient. Note: At least 10% of breast cancer is not imaged by mammography. Dictated by: Dictated on workstation # [id number]
== END ==
LOC: RAD 10:56
PROVIDERS: ATTEND Nurse Practitioner Family
DX: Z12.31 Encounter for screening mammogram for malignant neoplasm of breast (principal)
CPT/HCPCS: 77063; 77067

== ENCOUNTER → 2020-03-09 | Outpatient (CLI) | payer BC ==
[2020-03-09 14:16] LABS: BASOPHILS % (AUTO) 0 % (0-10); EOSINOPHILS # (AUTO) 0.1 10^3/uL (0.0-0.3); EOSINOPHILS % (AUTO) 2 % (0-10); HEMATOCRIT 43 % (35-52); HEMOGLOBIN 14.5 g/dL (11.5-16.0); LYMPHOCYTES # (AUTO) 1.8 10^3/uL (1.0-4.0); LYMPHOCYTES % (AUTO) 38 % (12-44); MEAN CORPUSCULAR HEMOGLOBIN 32 pg (25-34); MEAN CORPUSCULAR HGB CONC 34 g/dL (32-36); MEAN CORPUSCULAR VOLUME 94 fL (80-99); MEAN PLATELET VOLUME 10.1 fL (9.0-12.2); MONOCYTES # (AUTO) 0.4 10^3/uL (0.0-1.0); MONOCYTES % (AUTO) 9 % (0-12); NEUTROPHILS # (AUTO) 2.3 10^3/uL (1.8-7.8); NEUTROPHILS % (AUTO) 50 % (42-75); PLATELET COUNT 228 10^3/uL (130-400); WHITE BLOOD COUNT 4.6 10^3/uL (4.3-11.0)
--- NOTE | 2020-03-09 14:32 | Diagnostic Imaging Report ---
PATIENT HISTORY: COVID 19, CHEST PAIN, TYPE 1 DIABETES, DYSPNEA. TECHNIQUE: Two views of the chest. COMPARISON: 12/29/2016 FINDINGS: The lung volumes are normal. No focal consolidation is seen. No large pleural effusion or pneumothorax is seen. The cardiomediastinal silhouette is normal in size and contour. No acute osseous abnormality is seen. The right Port-A-Cath tip projects over the cavoatrial junction. IMPRESSION: No acute pulmonary abnormality seen. Dictated by: Dictated on workstation # [id number]
[2020-03-09 14:38] LABS: FIBRIN DEGRADATION PRODUCTS < 0.27 UG/ML (0.00-0.49); FIBRINOGEN 383 MG/DL (221-496)
== END ==
LOC: RAD 13:23
PROVIDERS: ATTEND Nurse Practitioner Family
DX: U07.1 COVID-19 (principal); E11.9 Type 2 diabetes mellitus without complications
CPT/HCPCS: 36415; 71046; 82728; 83615; 85025; 85379; 85384; 86141

== ENCOUNTER 2020-03-10 07:57 | Outpatient (CLI) | payer BC ==
[~2020-03-10] VITALS: Ht 175 cm; Wt 90.0 kg
[2020-03-10 07:40] VITALS: BP 113/93
[2020-03-10] MEDS ORDERED: BAMLANIVIMAB 700 MG in NS 200 ML IV ONE (08:30)
[2020-03-10] MEDS ORDERED: EPINEPHrine INJECTION 1 MG/ML AMP IM PRN (08:30)
[2020-03-10] MEDS ORDERED: diphenhydrAMINE 50 MG/ML INJ (BENADRYL) IV PRN (08:30)
[2020-03-10 08:45] VITALS: BP 111/95
[2020-03-10 09:21] VITALS: BP 132/71
[2020-03-10 10:20] VITALS: BP 123/78
== END 2020-03-10 10:20 ==
LOC: INFUSION 07:57
PROVIDERS: ATTEND Nurse Practitioner Family
DX: U07.1 COVID-19 (principal)

== ENCOUNTER → 2020-03-16 | Outpatient (CLI) | payer BC ==
[2020-03-16 16:59] LABS: BASOPHILS # (AUTO) 0.1 10^3/uL (0.0-0.1); BASOPHILS % (AUTO) 1 % (0-10); EOSINOPHILS # (AUTO) 0.1 10^3/uL (0.0-0.3); EOSINOPHILS % (AUTO) 1 % (0-10); HEMATOCRIT 40 % (35-52); HEMOGLOBIN 13.4 g/dL (11.5-16.0); LYMPHOCYTES # (AUTO) 2.8 10^3/uL (1.0-4.0); LYMPHOCYTES % (AUTO) 31 % (12-44); MEAN CORPUSCULAR HEMOGLOBIN 32 pg (25-34); MEAN CORPUSCULAR HGB CONC 33 g/dL (32-36); MEAN CORPUSCULAR VOLUME 94 fL (80-99); MEAN PLATELET VOLUME 10.5 fL (9.0-12.2); MONOCYTES # (AUTO) 0.6 10^3/uL (0.0-1.0); MONOCYTES % (AUTO) 7 % (0-12); NEUTROPHILS # (AUTO) 5.5 10^3/uL (1.8-7.8); NEUTROPHILS % (AUTO) 60 % (42-75); PLATELET COUNT 279 10^3/uL (130-400); WHITE BLOOD COUNT 9.1 10^3/uL (4.3-11.0)
--- NOTE | 2020-03-16 16:59 | Diagnostic Imaging Report ---
PROCEDURE: CT chest without contrast. TECHNIQUE: Multiple contiguous axial images were obtained through the chest without the use of intravenous contrast. Auto Exposure Controls were utilized during the CT exam to meet ALARA standards for radiation dose reduction. INDICATION: Dyspnea and lower respiratory tract infection with positive COVID infection. FINDINGS: There is no evidence of focal consolidation or significant infiltrate in either lung. There are occasional scattered subpleural nodules. These in general measure up to 0.3 cm in diameter. There is no significant pleural or pericardial fluid. No pathologically enlarged adenopathy is identified. There is right anterior chest wall port with catheter tip reaching the upper right atrium. IMPRESSION: Minimal nodularity in the lungs could be related to previous granulomatous exposure. Clinical correlation is recommended. Short-term follow-up study could be performed based on patient's risk factors. Otherwise, no focal infiltrate or dominant lesion is identified. Dictated by: Dictated on workstation # [id number]
[2020-03-16 17:17] LABS: FIBRIN DEGRADATION PRODUCTS < 0.27 UG/ML (0.00-0.49); FIBRINOGEN 404 MG/DL (221-496)
[2020-03-16 17:19] LABS: ALBUMIN 3.6 GM/DL (3.2-4.5); BILIRUBIN,TOTAL 0.1 MG/DL (0.1-1.0); CALCIUM 8.7 MG/DL (8.5-10.1); CREATININE SERUM 1.01 MG/DL (0.60-1.30); POTASSIUM 4.7 MMOL/L (3.6-5.0); TOTAL PROTEIN 6.2 GM/DL (6.4-8.2)
== END ==
LOC: RAD 16:13
PROVIDERS: ATTEND Nurse Practitioner Family
DX: U07.1 COVID-19 (principal); J22 Unspecified acute lower respiratory infection
CPT/HCPCS: 36415; 71250; 80053; 82728; 83615; 85025; 85379; 85384; 86141

== ENCOUNTER 2020-04-15 15:00 | Outpatient (RCR) | payer BC | END 2020-07-14 | disposition home or self-care (01) | LOC: CARD 15:00 | PROVIDERS: ATTEND Nurse Practitioner Family | DX: I34.0 Nonrheumatic mitral (valve) insufficiency (principal); I51.7 Cardiomegaly; I95.1 Orthostatic hypotension; Z91.89 Other specified personal risk factors, not elsewhere classified; Z86.16 Personal history of COVID-19 | CPT/HCPCS: 93225; 93226; 93306 ==

== ENCOUNTER 2020-07-19 10:03 | Emergency (ER) | payer BC ==
[~2020-07-19] VITALS: Ht 175.3 cm; Wt 90.7 kg
[2020-07-19] MEDS ORDERED: fentaNYL INJ 100 MCG/2 ML AMP IVP ONE (10:45)
--- NOTE | 2020-07-19 11:15 | Diagnostic Imaging Report ---
Indication: Left hip pain. Comparison: None. Discussion: AP view of the pelvis and two views of left hip were obtained. Electronic device is projected over the left flank. There is an acute inferior and superior pubic rami fracture on the left near the pubis symphysis. The hip joints are maintained otherwise. No dislocation. Soft tissues are unremarkable. Impression: 1. Suspect acute nondisplaced fracture along the left aspect of the pubis symphysis involving the inferior and superior pubic rami. Dictated by: Dictated on workstation # [id number]
[2020-07-19] MEDS ORDERED: morphine INJ 10 MG/ML 1ML (SYR OR VIAL) IVP STA (11:59)
[2020-07-19 12:18] LABS: BILIRUBIN,URINE NEGATIVE (NEGATIVE); CLARITY,URINE CLEAR; COLOR,URINE YELLOW; GLUCOSE, URINE (UA) NEGATIVE (NEGATIVE); KETONES,URINE NEGATIVE (NEGATIVE); LEUKOCYTE ESTERASE ,URINE NEGATIVE (NEGATIVE); NITRITE,URINE NEGATIVE (NEGATIVE); PROTEIN,URINE TRACE (NEGATIVE)
[2020-07-19 12:30] LABS: AMORPHOUS SEDIMENT,UR FEW AMOR URATES /LPF; BACTERIA,URINE NEGATIVE /HPF
[2020-07-19] MEDS ORDERED: ONDANSETRON 4 MG/2 ML (SDV) Z0FRAN IVP ONE (13:00)
[2020-07-19] MEDS ORDERED: oxyCODONE/APAP 5/325MG (PERCOCET 5) TABLET PO ONE (14:15)
--- NOTE | 2020-07-19 14:18 | ED Fall/Injury ---
General Chief Complaint: Trauma-Non Activation Stated Complaint: L HIP INJ Nursing Triage Note: PT TO RM 3 BY WHEELCHAIR WITH COMPLAINT OF LEFT HIP PAIN. 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 PT STATES SHE FELL OFF THE CHAIR LANDING ON LEFT HIP ON TILE. STATES FEELS LIKE "SOMETHING IS SLIDING". DENIES LOC OR ANY OTHER INJURY. Source: patient Exam Limitations: no limitations History of Present Illness Date Seen by Provider: July 19, 2020 Allergies and Home Medications Allergies Coded Allergies: clarithromycin (Verified Allergy, Unknown, 10/03/16) codeine (Verified Allergy, Unknown, 10/03/16) Home Medications Acetylcarnitine 500 Mg Capsule, 400 MG PO DAILY, (Reported) Alpha Lipoic Acid 200 Mg Capsule, 200 MG PO DAILY, (Reported) Butalbital/Acetaminophen 1 Each Tablet, 1 EACH PO PRN, (Reported) Cholecalciferol (Vitamin D3) 1,000 Unit Tablet, 1,000 UNIT PO BID, (Reported) Cyclobenzaprine HCl 10 Mg Tablet, 10 MG PO Q8H PRN for SPASMS Prescribed by: KIKE ZAZUETA on 12/29/16 1652 Docusate Sodium 100 Mg Capsule, 100 MG PO BID Prescribed by: MARCELINO LIVINGSTON on 10/06/16 1123 Docusate Sodium 100 Mg Capsule, 100 MG PO DAILY Prescribed by: CURT CROFT on 07/19/20 1638 Duloxetine Hcl 30 Mg Capsule.dr, 30 MG PO DAILY, (Reported) Mirian Root 550 Mg Capsule, 550 MG PO SUPPER, (Reported) Hydrocodone Bit/Acetaminophen 1 Each Tablet, 1 EA PO Q4-6HR PRN for PAIN- MODERATE TO SEVERE Prescribed by: KEN BARCLAYNithya on 10/06/16 0938 Hydroxychloroquine Sulfate 200 Mg Tablet, 200 MG PO BID, (Reported) Lactobacillus Rhamnosus Gg 1 Each Capsule, 1 TAB PO TID, (Reported) Lorazepam 1 Mg Tablet, 1 MG PO BID, (Reported) Magnesium Oxide 400 Mg Tablet, 400 MG PO DAILY, (Reported) Oxycodone HCl/Acetaminophen 1 Each Tablet, 1-2 TAB PO Q4H PRN for PAIN-MODERATE (5-7) Prescribed by: CURT CROFT on 07/19/20 1638 Pyridoxine HCl 100 Mg Tablet, 100 MG PO DAILY, (Reported) Testosterone 2.5 Gm Gel.packet, 2.5 GM TD DAILY, (Reported) Thyroid,Pork 32.5 Mg Tablet, 3 TAB PO DAILY, (Reported) Ubidecarenone 200 Mg Capsule, 200 MG PO DAILY, (Reported) Vitamin E Mixed 400 Unit Capsule, 400 UNIT PO DAILY, (Reported) Past Ildorlf-Jxofpi-Julslg Hx Patient Social History Alcohol Use: Denies Use Smoking Status: Never a Smoker Recent Infectious Disease Expo: No Recent Hopitalizations: No Immunizations Up To Date Tetanus Booster (TDap): Unknown Seasonal Allergies Seasonal Allergies: No Past Medical History Surgeries: Yes (CS x2, LEFT ARM LAC. TENDON REPAIR) Section, Gallbladder, Hysterectomy, Orthopedic Respiratory: No Cardiac: Yes (HIGH HEART RATE, POTS) Neurological: Yes (LYME, SEIZURE FROM FAST CHANGE IN BS) Headaches /Migraines, Seizure Disorder Reproductive Disorders: No SMOCKER History: Hysterectomy Sexually Transmitted Disease: No HIV/AIDS: No Kidney Stones Gastrointestinal: Yes Chronic Diarrhea Musculoskeletal: Yes (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, BONE SPURS BASE OF NECK) Chronic Back Pain Endocrine: Yes Diabetes, Insulin dep Loss of Vision: Bilateral Hearing Impairment: Denies Cancer: No Psychosocial: Yes Anxiety Integumentary: No Blood Disorders: No Adverse Reaction/Blood Tranf: No Family Medical History Cataracts 19 FATHER 19 MOTHER Congenital disease G8 SISTER (clef palate) Hypercholesterolemia G8 SISTER Hypertension G8 SISTER Thyroid disease G8 SISTER No Family History of: AIDS Abdominal aortic aneurysm [place]'s disease Alcoholism Alzheimer's disease Aphasia Arthritis Asthma Cancer of mouth Cardiovascular disease Colon cancer Completed stroke Congenital heart disease Coronary thrombosis Cystic fibrosis Deafness or hearing loss Dementia Diabetes mellitus Drug abuse Dysphasia Fibrocystic disease of breast Gastroenteritis Glaucoma Headache disorder Infertility Kidney disease Myocardial infarction Neoplasm Not obtainable due to adoption Osteoporosis Parkinson's disease Prostate cancer Psychosocial problem Respiratory disorder Seizure disorder Severe allergy Tuberculosis Visual disorder Heart Disease, Hypertension Physical Exam Vital Signs Vital Signs - First Documented 07/19/20 10:08 Pulse 66 Resp 20 B/P (MAP) 121/79 (93) Pulse Ox 96 O2 Delivery Room Air Capillary Refill : Less Than 3 Seconds Height, Weight, BMI Height: 5'9.00" Weight: 195lbs. 0.0oz. [id number]; 29.00 BMI Method:Estimated Progress/Results/Core Measures Results/Orders Lab Results Laboratory Tests Test 07/19/20 12:04 07/19/20 14:16 07/19/20 14:22 Range/Units Urine Color YELLOW Urine Clarity CLEAR Urine pH 7.0 5-9 Urine Specific Tuttle 1.020 1.016-1.022 Urine Protein TRACE H NEGATIVE Urine Glucose (UA) NEGATIVE NEGATIVE Urine Ketones NEGATIVE NEGATIVE Urine Nitrite NEGATIVE NEGATIVE Urine Bilirubin NEGATIVE NEGATIVE Urine Urobilinogen 0.2 < = 1.0 MG/DL Urine Leukocyte Esterase NEGATIVE NEGATIVE Urine RBC (Auto) NEGATIVE NEGATIVE Urine RBC NONE /HPF Urine WBC NONE /HPF Urine Squamous Epithelial Cells 2-5 /HPF Urine Crystals PRESENT H /LPF Urine Amorphous Sediment FEW ODILON URATES H /LPF Urine Bacteria NEGATIVE /HPF Urine Casts NONE /LPF Urine Mucus MODERATE H /LPF Urine Culture Indicated NO Glucometer 150 H 70-110 MG/DL White Blood Count 11.3 H 4.3-11.0 10^3/uL Red Blood Count 4.26 3.80-5.11 10^6/uL Hemoglobin 13.4 11.5-16.0 g/dL Hematocrit 40 35-52 % Mean Corpuscular Volume 93 80-99 fL Mean Corpuscular Hemoglobin 32 25-34 pg Mean Corpuscular Hemoglobin Concent 34 32-36 g/dL Red Cell Distribution Width 12.0 10.0-14.5 % Platelet Count 253 130-400 10^3/uL Mean Platelet Volume 9.7 9.0-12.2 fL Immature Granulocyte % (Auto) 0 % Neutrophils (%) (Auto) 77 H 42-75 % Lymphocytes (%) (Auto) 16 12-44 % Monocytes (%) (Auto) 6 0-12 % Eosinophils (%) (Auto) 1 0-10 % Basophils (%) (Auto) 0 0-10 % Neutrophils # (Auto) 8.6 H 1.8-7.8 X 10^3 Lymphocytes # (Auto) 1.8 1.0-4.0 X 10^3 Monocytes # (Auto) 0.7 0.0-1.0 X 10^3 Eosinophils # (Auto) 0.1 0.0-0.3 10^3/uL Basophils # (Auto) 0.0 0.0-0.1 10^3/uL Immature Granulocyte # (Auto) 0.0 0.0-0.1 10^3/uL Sodium Level 136 135-145 MMOL/L Potassium Level 4.1 3.6-5.0 MMOL/L Chloride Level 106 98-107 MMOL/L Carbon Dioxide Level 21 21-32 MMOL/L Anion Gap 9 5-14 MMOL/L Blood Urea Nitrogen 13 7-18 MG/DL Creatinine 1.07 0.60-1.30 MG/DL Estimat Glomerular Filtration Rate 54 BUN/Creatinine Ratio 12 Glucose Level 175 H 70-105 MG/DL Calcium Level 8.4 L 8.5-10.1 MG/DL Corrected Calcium 8.6 8.5-10.1 MG/DL Total Bilirubin 0.5 0.1-1.0 MG/DL Aspartate Amino Transf (AST/SGOT) 238 H 5-34 U/L Alanine Aminotransferase (ALT/SGPT) 114 H 0-55 U/L Alkaline Phosphatase 85 40-136 U/L Total Protein 6.0 L 6.4-8.2 GM/DL Albumin 3.7 3.2-4.5 GM/DL My Orders Orders - CURT CADET MD Pelvis With Left Hip 2-3 Views (07/19/20 10:44) Ed Iv/Invasive Line Start (07/19/20 10:44) Fentanyl Inj (Sublimaze Injection) (07/19/20 10:45) Ua Culture If Indicated (07/19/20 11:50) Morphine Injection (Morphine Injection (07/19/20 11:59) Ondansetron Injection (Zofran Injectio (07/19/20 13:00) Oxycodone/Apap 5/325mg Tablet (Percocet (07/19/20 14:15) Cbc With Automated Diff (07/19/20 14:19) Comprehensive Metabolic Panel (07/19/20 14:19) Ns Iv 1000 Ml (Sodium Chloride 0.9%) (07/19/20 14:30) Ct Abdomen/Pelvis W (07/19/20 14:26) Iohexol Injection (Omnipaque 350 Mg/Ml 1 (07/19/20 14:45) Received Contrast (Hold Metformin- Contr (07/19/20 14:45) Ns (Ivpb) (Sodium Chloride 0.9% Ivpb Bag (07/19/20 14:45) Oxycodone/Apap 5/325mg Tablet (Percocet (07/19/20 16:31) Heparin (Central Iv Flush) (Heparin (Heather (07/19/20 16:31) Medications Given in ED Current Medications Medications Dose Ordered Sig/Karlo Route Start Time Stop Time Status Last Admin Dose Admin Fentanyl Citrate 50 mcg ONCE ONCE IVP 07/19/20 10:45 07/19/20 10:46 DC 07/19/20 10:58 50 MCG Heparin Sodium (Porcine) 500 unit STK-MED ONCE .ROUTE 07/19/20 16:31 07/19/20 16:40 DC 07/19/20 16:35 500 UNIT Iohexol 100 ml ONCE ONCE IV 07/19/20 14:45 07/19/20 14:47 DC 07/19/20 15:15 100 ML Ondansetron HCl 8 mg ONCE ONCE IVP 07/19/20 13:00 07/19/20 13:01 DC 07/19/20 12:45 8 MG Oxycodone/ Acetaminophen 1 tab ONCE ONCE PO 07/19/20 14:15 07/19/20 14:16 DC 07/19/20 16:39 1 TAB Sodium Chloride 100 ml ONCE ONCE IV 07/19/20 14:45 07/19/20 14:47 DC 07/19/20 15:16 80 ML Vital Signs/I&O 07/19/20 07/19/20 10:08 16:47 Pulse 66 72 Resp 20 20 B/P (MAP) 121/79 (93) 118/83 (93) Pulse Ox 96 96 O2 Delivery Room Air Room Air Blood Pressure Mean: 93 Progress Progress Note : Time: 14:23 Progress Note Patient was found to have a pelvic fracture of both rami on the left. I discussed the case with Dr. Hamlin who recommended supportive care and weightbearing as tolerated. From his perspective admission was not necessary. Patient desired to return home. We have given morphine and then a trial of ambulation. Patient was able to ambulate with a walker independently. However, she became lightheaded. She sat down in a chair and then had a brief syncopal episode. Patient's medical history is complicated because she has insulin- dependent diabetes and POTS. Blood sugar was 168 at the time of the event. Her syncope could be related to POTS, but it is now appropriate to obtain a CT scan of the abdomen and pelvis to rule out hemorrhage as a source of her syncope. Departure Impression Primary Impression: Fall from chair Qualified Codes: W07.XXXA - Fall from chair, initial encounter Additional Impressions: Pelvic fracture Qualified Codes: S32.502A - Unspecified fracture of left pubis, initial en counter for closed fracture Sacral fracture, closed Qualified Codes: S32.10XA - Unspecified fracture of sacrum, initial encounter for closed fracture Disposition: 01 HOME, SELF-CARE Condition: Improved Departure-Patient Inst. Decision time for Depature: 16:35 Referrals: SHANON HAMLIN MD, WILLIAM J DO (PCP/Family) Primary Care Physician Patient Instructions: Pelvic Fracture (DC) Add. Discharge Instructions: Minimal weightbearing as tolerated. Attempt to ambulate with the walker frequently to prevent sedentary health problems such as blood clots. Use Percocet as prescribed. Use Colace stool softener while using Percocet to prevent constipation. Follow-up with an orthopedist of your choice as soon as possible. Avoid any lifting, strenuous activity, or full weightbearing as much as possible. Use the walker to ambulate. All discharge instructions reviewed with patient and/or family. Voiced understanding. Scripts Docusate Sodium (Colace) 100 Mg Capsule 100 MG PO DAILY, #30 CAP Prov: CURT CADET MD 07/19/20 Oxycodone HCl/Acetaminophen (Percocet 5-325 mg Tablet) 1 Each Tablet 1-2 TAB PO Q4H PRN for PAIN-MODERATE (5-7) MDD 6 TABS, #30 TAB Prov: CURT CADET MD 07/19/20 Work/School Note: Work Release Form Date Seen in the Emergency Department: July 19, 2020 Restrictions: Need Release from Doctor CURT CADET MD July 19, 2020 14:18
[2020-07-19] MEDS ORDERED: NS IV 1000 ML 1,000 ML IV SCH (14:30)
[2020-07-19 14:33] LABS: BASOPHILS % (AUTO) 0 % (0-10); EOSINOPHILS # (AUTO) 0.1 10^3/uL (0.0-0.3); EOSINOPHILS % (AUTO) 1 % (0-10); HEMATOCRIT 40 % (35-52); HEMOGLOBIN 13.4 g/dL (11.5-16.0); LYMPHOCYTES # (AUTO) 1.8 X 10^3 (1.0-4.0); LYMPHOCYTES % (AUTO) 16 % (12-44); MEAN CORPUSCULAR HEMOGLOBIN 32 pg (25-34); MEAN CORPUSCULAR HGB CONC 34 g/dL (32-36); MEAN CORPUSCULAR VOLUME 93 fL (80-99); MEAN PLATELET VOLUME 9.7 fL (9.0-12.2); MONOCYTES # (AUTO) 0.7 X 10^3 (0.0-1.0); MONOCYTES % (AUTO) 6 % (0-12); NEUTROPHILS # (AUTO) 8.6 X 10^3 (1.8-7.8); NEUTROPHILS % (AUTO) 77 % (42-75); PLATELET COUNT 253 10^3/uL (130-400); WHITE BLOOD COUNT 11.3 10^3/uL (4.3-11.0)
[2020-07-19 14:42] LABS: ALBUMIN 3.7 GM/DL (3.2-4.5); POTASSIUM 4.1 MMOL/L (3.6-5.0)
[2020-07-19 14:43] LABS: CALCIUM 8.4 MG/DL (8.5-10.1)
[2020-07-19] MEDS ORDERED: IOHEXOL 350 MG/ML 100 ML (OMNIPAQUE 350) VIAL IV ONE (14:45)
[2020-07-19] MEDS ORDERED: HOLD METFORMIN - RECEIVED CONTRAST 20 ML VIAL IV SCH (14:45)
[2020-07-19] MEDS ORDERED: NS 100 ML (IVPB) BAG IV ONE (14:45)
[2020-07-19 14:46] LABS: BILIRUBIN,TOTAL 0.5 MG/DL (0.1-1.0)
[2020-07-19 14:48] LABS: CREATININE SERUM 1.07 MG/DL (0.60-1.30)
--- NOTE | 2020-07-19 15:42 | Diagnostic Imaging Report ---
PROCEDURE: CT abdomen and pelvis with contrast. TECHNIQUE: Multiple contiguous axial images were obtained through the abdomen and pelvis after administration of intravenous contrast. Auto Exposure Controls were utilized during the CT exam to meet ALARA standards for radiation dose reduction. All CT scans use one or more of the following dose optimizing techniques: automated exposure control, MA and/or KvP adjustment based on patient size and exam type or iterative reconstruction. INDICATION: Left-sided hip and abdominal pain after fall. COMPARISON: 08/04/2015. DISCUSSION: Lung bases are well aerated. Normal heart size. No pleural or pericardial fluid. The gallbladder is surgically absent. The liver, pancreas, stomach, spleen, and adrenal glands are unremarkable. No renal stone, mass, or hydronephrosis. The aorta is normal in caliber. Mild constipation. Uterus is surgically absent. Urinary bladder is unremarkable. No ascites or pathologically enlarged lymph nodes identified. No compression fracture identified within the lumbar spine. Alignment is anatomic. Facet joints are maintained. There is a nondisplaced fracture involving the medial junction of the inferior and superior left pubic rami. There is a nondisplaced left sacral alar fracture also noted. IMPRESSION: 1. Nondisplaced left inferior and superior pubic rami fractures. 2. Nondisplaced left sacral alar fracture. Dictated by: Dictated on workstation # [id number]
[2020-07-19] MEDS ORDERED: HEParin (CENTRAL IV FLUSH) 500 UNIT/5 ML SYR ONE (16:31)
[2020-07-19] MEDS ORDERED: oxyCODONE/APAP 5/325MG (PERCOCET 5) TABLET ONE (16:31)
[2020-07-19] MEDS ORDERED: OXYC1TAB87 PO (16:38)
[2020-07-19] MEDS ORDERED: DOCU-143 PO (16:38)
[2020-07-19 16:47] VITALS: BP 118/83
== END 2020-07-19 16:47 | disposition home or self-care (01) ==
LOC: EDUNIT# 10:03 → ER 10:04
DX: S32.502A Unspecified fracture of left pubis, initial encounter for closed fracture (principal); S32.10XA Unspecified fracture of sacrum, initial encounter for closed fracture; F41.9 Anxiety disorder, unspecified; G40.909 Epilepsy, unspecified, not intractable, without status epilepticus; G89.29 Other chronic pain; M54.9 Dorsalgia, unspecified; E11.9 Type 2 diabetes mellitus without complications; Z88.1 Allergy status to other antibiotic agents; Z88.5 Allergy status to narcotic agent; Z79.899 Other long term (current) drug therapy; Z79.891 Long term (current) use of opiate analgesic; W07.XXXA Fall from chair, initial encounter
CPT/HCPCS: 36415; 74177; 80053; 81000; 82947; 85025

== ENCOUNTER 2020-08-10 16:45 | Emergency (ER) | payer BC ==
[~2020-08-10] VITALS: Ht 175 cm; Wt 90.0 kg
[~2020-08-10 16:45] MED LIST changes: +OXYC1TAB87 PO
--- NOTE | 2020-08-10 17:18 | ED Lower Extremity ---
General Chief Complaint: Lower Extremity Stated Complaint: DX W/ BROKEN PELVIS/R LEG COLD TO TOUCH Nursing Triage Note: ARRIVED VIA WC TO ROOM 01. STATES SHE BROKE HER PELVIS SEVERAL WEEKS AGO AND TODAY STATES THE FEELING IN HER LEFT FOOT IS WEAKER AND IT IS COOL TO THE TOUCH. Nursing Sepsis Screen: No Definite Risk Source: patient Exam Limitations: no limitations History of Present Illness Date Seen by Provider: August 10, 2020 Time Seen by Provider: 17:14 Initial Comments To ER with reports that her left lower extremity is cooler to touch. She noticed this earlier today. She does have increased pain to the left leg from the hip on down. states that she is trying to get off of the pain medications so that could account for her increase in pain. She fell about 3 weeks ago and broke her sacrum and inferior and superior pubic ramus on the left. History of type 1 diabetes, POTS, chronic Lyme disease (follows with Dr. England). Onset: just prior to arrival Severity: moderate Pain/Injury Location: left leg Method of Injury: unknown Allergies and Home Medications Allergies Coded Allergies: clarithromycin (Verified Allergy, Unknown, 10/03/16) codeine (Verified Allergy, Unknown, 10/03/16) Home Medications Acetylcarnitine 500 Mg Capsule, 400 MG PO DAILY, (Reported) Alpha Lipoic Acid 200 Mg Capsule, 200 MG PO DAILY, (Reported) Butalbital/Acetaminophen 1 Each Tablet, 1 EACH PO PRN, (Reported) Cholecalciferol (Vitamin D3) 1,000 Unit Tablet, 1,000 UNIT PO BID, (Reported) Cyclobenzaprine HCl 10 Mg Tablet, 10 MG PO Q8H PRN for SPASMS Prescribed by: KIKE ZAZUETA on 12/29/16 1652 Docusate Sodium 100 Mg Capsule, 100 MG PO BID Prescribed by: MARCELINO LIVINGSTON on 10/06/16 1123 Docusate Sodium 100 Mg Capsule, 100 MG PO DAILY Prescribed by: CURT CROFT on 07/19/20 1638 Duloxetine Hcl 30 Mg Capsule.dr, 30 MG PO DAILY, (Reported) Mirian Root 550 Mg Capsule, 550 MG PO SUPPER, (Reported) Hydrocodone Bit/Acetaminophen 1 Each Tablet, 1 EA PO Q4-6HR PRN for PAIN- MODERATE TO SEVERE Prescribed by: KEN JENNINGS [facility] on 10/06/16 0938 Hydroxychloroquine Sulfate 200 Mg Tablet, 200 MG PO BID, (Reported) Lactobacillus Rhamnosus Gg 1 Each Capsule, 1 TAB PO TID, (Reported) Lorazepam 1 Mg Tablet, 1 MG PO BID, (Reported) Magnesium Oxide 400 Mg Tablet, 400 MG PO DAILY, (Reported) Oxycodone HCl/Acetaminophen 1 Each Tablet, 1-2 TAB PO Q4H PRN for PAIN-MODERATE (5-7) Prescribed by: CURT CROFT on 07/19/20 1638 Pyridoxine HCl 100 Mg Tablet, 100 MG PO DAILY, (Reported) Testosterone 2.5 Gm Gel.packet, 2.5 GM TD DAILY, (Reported) Thyroid,Pork 32.5 Mg Tablet, 3 TAB PO DAILY, (Reported) Ubidecarenone 200 Mg Capsule, 200 MG PO DAILY, (Reported) Vitamin E Mixed 400 Unit Capsule, 400 UNIT PO DAILY, (Reported) Patient Home Medication List Home Medication List Reviewed: Yes Review of Systems Constitutional: see HPI EENTM: see HPI Respiratory: no symptoms reported Cardiovascular: no symptoms reported Genitourinary: no symptoms reported Musculoskeletal: see HPI Skin: no symptoms reported Psychiatric/Neurological: No Symptoms Reported Past Fkpzyps-Ozmjri-Vdyvfg Hx Patient Social History Recent Infectious Disease Expo: No Recent Hopitalizations: No Immunizations Up To Date Tetanus Booster (TDap): Unknown Seasonal Allergies Seasonal Allergies: No Past Medical History Surgeries: Yes (CS x2, LEFT ARM LAC. TENDON REPAIR) Section, Gallbladder, Hysterectomy, Orthopedic Respiratory: No Cardiac: Yes (HIGH HEART RATE, POTS) Neurological: Yes (LYME, SEIZURE FROM FAST CHANGE IN BS) Headaches /Migraines, Seizure Disorder Reproductive Disorders: No BRANCH LEAD History: Hysterectomy Sexually Transmitted Disease: No HIV/AIDS: No Genitourinary: Yes Kidney Stones Gastrointestinal: Yes Chronic Diarrhea Musculoskeletal: Yes (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, BONE SPURS BASE OF NECK) Chronic Back Pain Endocrine: Yes Diabetes, Insulin dep Loss of Vision: Bilateral Hearing Impairment: Denies Cancer: No Psychosocial: Yes Anxiety Integumentary: No Blood Disorders: No Adverse Reaction/Blood Tranf: No Family Medical History Cataracts 19 FATHER 19 MOTHER Congenital disease G8 SISTER (clef palate) Hypercholesterolemia G8 SISTER Hypertension G8 SISTER Thyroid disease G8 SISTER No Family History of: AIDS Abdominal aortic aneurysm [place]'s disease Alcoholism Alzheimer's disease Aphasia Arthritis Asthma Cancer of mouth Cardiovascular disease Colon cancer Completed stroke Congenital heart disease Coronary thrombosis Cystic fibrosis Deafness or hearing loss Dementia Diabetes mellitus Drug abuse Dysphasia Fibrocystic disease of breast Gastroenteritis Glaucoma Headache disorder Infertility Kidney disease Myocardial infarction Neoplasm Not obtainable due to adoption Osteoporosis Parkinson's disease Prostate cancer Psychosocial problem Respiratory disorder Seizure disorder Severe allergy Tuberculosis Visual disorder Heart Disease, Hypertension Physical Exam Vital Signs Vital Signs - First Documented 08/10/20 16:50 Temp 36.0 Pulse 93 Resp 16 B/P (MAP) 133/95 (108) Pulse Ox 95 O2 Delivery Room Air Capillary Refill : Less Than 3 Seconds Height, Weight, BMI Height: 5'9.00" Weight: 195lbs. 0.0oz. 88.642972ve; 29.00 BMI Method:Estimated General Appearance: WD/WN, no apparent distress, other (Alert and oriented very pleasant no distress. Vitals are stable.) Feet: bilateral foot non-tender, bilateral foot normal inspection, bilateral foot normal range of motion, bilateral foot other (There is a nonpalpable dorsalis pedis pulse on both sides, there is dopplerable blood flow in the dorsalis pedis artery on both sides. Both lower extremities have a normal appearance.The lateral aspect of the left lower extremity is slightly cooler than the right.) Neurologic/Tendon: normal sensation, normal motor functions Neurologic/Psychiatric: alert, normal mood/affect, oriented x 3 Skin: normal color, warm/dry Progress/Results/Core Measures Results/Orders Lab Results Laboratory Tests Test 08/10/20 17:25 08/10/20 18:27 Range/Units White Blood Count 7.4 4.3-11.0 10^3/uL Red Blood Count 4.32 3.80-5.11 10^6/uL Hemoglobin 13.6 11.5-16.0 g/dL Hematocrit 40 35-52 % Mean Corpuscular Volume 92 80-99 fL Mean Corpuscular Hemoglobin 32 25-34 pg Mean Corpuscular Hemoglobin Concent 34 32-36 g/dL Red Cell Distribution Width 11.9 10.0-14.5 % Platelet Count 311 130-400 10^3/uL Mean Platelet Volume 9.9 9.0-12.2 fL Immature Granulocyte % (Auto) 0 % Neutrophils (%) (Auto) 57 42-75 % Lymphocytes (%) (Auto) 31 12-44 % Monocytes (%) (Auto) 8 0-12 % Eosinophils (%) (Auto) 2 0-10 % Basophils (%) (Auto) 1 0-10 % Neutrophils # (Auto) 4.3 1.8-7.8 10^3/uL Lymphocytes # (Auto) 2.3 1.0-4.0 10^3/uL Monocytes # (Auto) 0.6 0.0-1.0 10^3/uL Eosinophils # (Auto) 0.1 0.0-0.3 10^3/uL Basophils # (Auto) 0.1 0.0-0.1 10^3/uL Immature Granulocyte # (Auto) 0.0 0.0-0.1 10^3/uL Prothrombin Time 13.6 12.2-14.7 SEC INR Comment 1.0 0.8-1.4 Activated Partial Thromboplast Time 97 H 24-35 SEC Sodium Level 136 135-145 MMOL/L Potassium Level 4.4 3.6-5.0 MMOL/L Chloride Level 101 98-107 MMOL/L Carbon Dioxide Level 26 21-32 MMOL/L Anion Gap 9 5-14 MMOL/L Blood Urea Nitrogen 15 7-18 MG/DL Creatinine 1.04 0.60-1.30 MG/DL Estimat Glomerular Filtration Rate 55 BUN/Creatinine Ratio 14 Glucose Level 250 H 70-105 MG/DL Calcium Level 8.9 8.5-10.1 MG/DL Corrected Calcium 9.1 8.5-10.1 MG/DL Total Bilirubin 0.2 0.1-1.0 MG/DL Aspartate Amino Transf (AST/SGOT) 20 5-34 U/L Alanine Aminotransferase (ALT/SGPT) 28 0-55 U/L Alkaline Phosphatase 163 H 40-136 U/L Total Protein 6.1 L 6.4-8.2 GM/DL Albumin 3.7 3.2-4.5 GM/DL My Orders Orders - LADI HERNADEZ [employer] Us Left Low Ext Arterial [id number] (08/10/20 17:05) Cbc With Automated Diff (08/10/20 17:05) Comprehensive Metabolic Panel (08/10/20 17:05) Ua Culture If Indicated (08/10/20 17:05) Ed Iv/Invasive Line Start (08/10/20 17:05) Fibrin Degradation Products (08/10/20 17:05) Partial Thromboplastin Time (08/10/20 17:05) Protime With Inr (08/10/20 17:05) Vital Signs/I&O 08/10/20 16:50 Temp 36.0 Pulse 93 Resp 16 B/P (MAP) 133/95 (108) Pulse Ox 95 O2 Delivery Room Air Blood Pressure Mean: 108 Departure Communication (Admissions) Family Conversation NAME: KIKE [facility] REC#: [id number] PT STATUS: REG ER : 1965 PHYSICIAN: LADI HERNADEZ APRN ADMIT DATE: 08/10/20/ER Draft Date of Exam:08/10/20 US LEFT LOW EXT ARTERIAL [id number] INDICATION: Pain, cold foot. COMPARISON: None available. TECHNIQUE: Arterial Doppler duplex ultrasound of the left lower extremity was performed on August 10, 2020. FINDINGS: Triphasic and biphasic waveforms are identified throughout the large arterial structures of the left lower extremity without focally increased velocities. No monophasic waveforms seen. IMPRESSION: No evidence of hemodynamically significant stenosis within the left lower extremity. Dictated on workstation # [id number] Dict: 08/10/20 1828 Trans: 08/10/20 1832 [id number] Interpreted by: YANIRA JUAREZ MD Electronically signed by: Normal appearance of both lower extremities without erythema or swelling or ecchymosis. Not concerned about venous occlusion, arterial occlusion would be the primary concern. 1839-after the pain medication here she is feeling better. Ultrasound does not reveal any hemodynamically significant stenosis in the left lower extremity. We will discharged home. Impression Primary Impression: Painful and cold lower extremity Disposition: HOME, SELF-CARE Condition: Stable Departure-Patient Inst. Decision time for Depature: 18:40 Referrals: ELIA ENGLAND DO (PCP/Family) Primary Care Physician Patient Instructions: NO INSTRUCTIONS GIVEN, Moderate Sedation in Children (DC), Moderate Sedation in Adults (DC) Add. Discharge Instructions: All discharge instructions reviewed with patient and/or family. Voiced understanding. Copy Copies To 1: ELIA ENGLAND PETER J APRN August 10, 2020 17:18
[2020-08-10 17:31] LABS: BASOPHILS # (AUTO) 0.1 10^3/uL (0.0-0.1); BASOPHILS % (AUTO) 1 % (0-10); EOSINOPHILS # (AUTO) 0.1 10^3/uL (0.0-0.3); EOSINOPHILS % (AUTO) 2 % (0-10); HEMATOCRIT 40 % (35-52); HEMOGLOBIN 13.6 g/dL (11.5-16.0); LYMPHOCYTES # (AUTO) 2.3 10^3/uL (1.0-4.0); LYMPHOCYTES % (AUTO) 31 % (12-44); MEAN CORPUSCULAR HEMOGLOBIN 32 pg (25-34); MEAN CORPUSCULAR HGB CONC 34 g/dL (32-36); MEAN CORPUSCULAR VOLUME 92 fL (80-99); MEAN PLATELET VOLUME 9.9 fL (9.0-12.2); MONOCYTES # (AUTO) 0.6 10^3/uL (0.0-1.0); MONOCYTES % (AUTO) 8 % (0-12); NEUTROPHILS # (AUTO) 4.3 10^3/uL (1.8-7.8); NEUTROPHILS % (AUTO) 57 % (42-75); PLATELET COUNT 311 10^3/uL (130-400); WHITE BLOOD COUNT 7.4 10^3/uL (4.3-11.0)
[2020-08-10 17:50] LABS: ALBUMIN 3.7 GM/DL (3.2-4.5)
[2020-08-10 17:51] LABS: POTASSIUM 4.4 MMOL/L (3.6-5.0)
[2020-08-10 17:52] LABS: CALCIUM 8.9 MG/DL (8.5-10.1)
[2020-08-10 17:53] LABS: TOTAL PROTEIN 6.1 GM/DL (6.4-8.2)
[2020-08-10 17:55] LABS: BILIRUBIN,TOTAL 0.2 MG/DL (0.1-1.0)
[2020-08-10 17:56] LABS: PROTHROMBIN TIME PATIENT 13.6 SEC (12.2-14.7)
[2020-08-10 17:57] LABS: CREATININE SERUM 1.04 MG/DL (0.60-1.30)
--- NOTE | 2020-08-10 18:32 | Diagnostic Imaging Report ---
INDICATION: Pain, cold foot. COMPARISON: None available. TECHNIQUE: Arterial Doppler duplex ultrasound of the left lower extremity was performed on August 10, 2020. FINDINGS: Triphasic and biphasic waveforms are identified throughout the large arterial structures of the left lower extremity without focally increased velocities. No monophasic waveforms seen. IMPRESSION: No evidence of hemodynamically significant stenosis within the left lower extremity. Dictated by: Dictated on workstation # [id number]
[2020-08-10 18:33] LABS: BILIRUBIN,URINE NEGATIVE (NEGATIVE); CLARITY,URINE CLEAR; COLOR,URINE YELLOW; GLUCOSE, URINE (UA) NEGATIVE (NEGATIVE); KETONES,URINE NEGATIVE (NEGATIVE); LEUKOCYTE ESTERASE ,URINE NEGATIVE (NEGATIVE); NITRITE,URINE NEGATIVE (NEGATIVE); PH,URINE 5.5 (5-9); PROTEIN,URINE NEGATIVE (NEGATIVE)
[2020-08-10 18:41] LABS: BACTERIA,URINE TRACE /HPF; WBC,URINE 0-2 /HPF
[2020-08-10 18:46] VITALS: BP 133/95
== END 2020-08-10 18:46 | disposition home or self-care (01) ==
LOC: EDUNIT# 16:45 → ER 16:46
DX: M79.605 Pain in left leg (principal); R20.8 Other disturbances of skin sensation; E10.9 Type 1 diabetes mellitus without complications; G89.29 Other chronic pain; M54.9 Dorsalgia, unspecified; F41.9 Anxiety disorder, unspecified; Z87.81 Personal history of (healed) traumatic fracture
CPT/HCPCS: 36415; 80053; 81000; 85025; 85610; 85730; 93926

== ENCOUNTER → 2020-10-05 | Outpatient (CLI) | payer BC ==
[2020-10-05 08:00] VITALS: BP 112/82
== END ==
LOC: SDC 07:48
PROVIDERS: ATTEND Nurse Practitioner Family
DX: Z45.2 Encounter for adjustment and management of vascular access device (principal)
CPT/HCPCS: 96523

== ENCOUNTER → 2020-10-05 | Outpatient (CLI) | payer BC ==
--- NOTE | 2020-10-05 11:53 | Diagnostic Imaging Report ---
INDICATION: 2-D and 3-D digital screening with CAD. COMPARED: 09/2019, 09/2018 and 09/2017. FINDINGS: Scattered fibroglandular density in the breast unchanged. No breast mass, spiculated lesion, architectural distortion or suspicious calcifications are found. Skin, nipples and axillae are within normal limits. IMPRESSION: Stable negative mammogram BI-RADS Category 1 ACR BI-RADS Category 1: Negative. Result letter will be mailed to the patient. Note: At least 10% of breast cancer is not imaged by mammography. Dictated by: Dictated on workstation # [id number]
== END ==
LOC: RAD 07:30
PROVIDERS: ATTEND Nurse Practitioner Family
DX: Z12.31 Encounter for screening mammogram for malignant neoplasm of breast (principal)
CPT/HCPCS: 77063; 77067

== ENCOUNTER → 2020-11-05 | Outpatient (CLI) | payer BC ==
--- NOTE | 2020-11-05 12:00 | Diagnostic Imaging Report ---
HISTORY: Thoracic somatic dysfunction. COMPARISON: 03/09/2020 TECHNIQUE: Frontal view and lateral view of the chest. FINDINGS: Lung volumes are normal. No focal consolidation is seen. There is no pleural effusion or pneumothorax. The cardiac silhouette is normal in size. The right Port-A-Cath tip projects over the cavoatrial junction. IMPRESSION: 1. No acute pulmonary abnormality. Dictated by: Dictated on workstation # [id number]
== END ==
LOC: RAD 09:52
PROVIDERS: ATTEND Internal Medicine
DX: M99.02 Segmental and somatic dysfunction of thoracic region (principal)
CPT/HCPCS: 71046

== ENCOUNTER → 2020-11-20 | Outpatient (CLI) | payer BC ==
[~2020-11-20] MED LIST changes: +CATHETER FLUSH 10 ML SYR IV PRN; +HOLD METFORMIN - RECEIVED CONTRAST 20 ML VIAL IV SCH; +IOHEXOL 350 MG/ML 100 ML (OMNIPAQUE 350) VIAL IV ONE; +NS 100 ML (IVPB) BAG IV ONE
[2020-11-20 11:24] LABS: BASOPHILS # (AUTO) 0.1 10^3/uL (0.0-0.1); BASOPHILS % (AUTO) 1 % (0-10); EOSINOPHILS # (AUTO) 0.1 10^3/uL (0.0-0.3); EOSINOPHILS % (AUTO) 2 % (0-10); HEMATOCRIT 40 % (35-52); HEMOGLOBIN 13.1 g/dL (11.5-16.0); LYMPHOCYTES # (AUTO) 2.1 10^3/uL (1.0-4.0); LYMPHOCYTES % (AUTO) 37 % (12-44); MEAN CORPUSCULAR HEMOGLOBIN 31 pg (25-34); MEAN CORPUSCULAR HGB CONC 33 g/dL (32-36); MEAN CORPUSCULAR VOLUME 93 fL (80-99); MONOCYTES # (AUTO) 0.4 10^3/uL (0.0-1.0); MONOCYTES % (AUTO) 7 % (0-12); NEUTROPHILS % (AUTO) 52 % (42-75); PLATELET COUNT 266 10^3/uL (130-400); WHITE BLOOD COUNT 5.8 10^3/uL (4.3-11.0)
[2020-11-20 11:43] LABS: ALANINE AMINOTRANSFERASE 21 U/L (0-55); ALBUMIN 3.9 GM/DL (3.2-4.5); ALKALINE PHOSPHATASE 66 U/L (40-136); BILIRUBIN,TOTAL 0.4 MG/DL (0.1-1.0); BUN/CREATININE RATIO 15; CALCIUM 9.4 MG/DL (8.5-10.1); CARBON DIOXIDE 23 MMOL/L (21-32); CHLORIDE 108 MMOL/L (98-107); CREATININE SERUM 1.04 MG/DL (0.60-1.30); GFR ESTIMATED 55; GLUCOSE 181 MG/DL (70-105); POTASSIUM 4.7 MMOL/L (3.6-5.0); SODIUM 138 MMOL/L (135-145); TOTAL PROTEIN 6.2 GM/DL (6.4-8.2)
[2020-11-20 11:49] LABS: ERYTHROCYTE SEDIMENTATION RATE 8 MM/HR (0-30)
--- NOTE | 2020-11-20 12:23 | Diagnostic Imaging Report ---
PROCEDURE: CT angiography of the chest with contrast. TECHNIQUE: Multiple contiguous axial images were obtained through the chest after uneventful bolus administration of intravenous contrast. 3D reconstructed CTA MIP acquisitions were also performed. Auto Exposure Controls were utilized during the CT exam to meet ALARA standards for radiation dose reduction. INDICATION: Shortness of air and chest pressure and chest pain. Evaluation of the pulmonary arterial system is without evidence of thromboembolism. No definite filling defects are seen within central, lobar segmental branches. Aorta is normal caliber. No dissection. There is no pericardial or pleural fluid. A 5 mm density right middle lobe appears to be stable when compared study from 03/08/2020 and likely scarring. Otherwise the lungs are clear. Upper abdomen is unremarkable. IMPRESSION: No evidence of pulmonary embolism or thoracic aortic dissection. Dictated by: Dictated on workstation # [id number]
== END ==
LOC: RAD 11:05
PROVIDERS: ATTEND Internal Medicine
DX: R06.00 Dyspnea, unspecified (principal); R06.02 Shortness of breath; R07.89 Other chest pain
CPT/HCPCS: 36415; 71275; 80053; 83880; 84484; 85025; 85379; 85652

== ENCOUNTER 2021-01-06 12:57 | Outpatient (RCR) | payer BC ==
[2020-12-02 13:37] VITALS: BP 128/83
[2020-12-09 13:20] VITALS: BP 145/87
[2020-12-16 13:40] VITALS: BP_SYST 134; BP_SYST 154; BP_DIAS 88
[2020-12-23 12:55] VITALS: BP 141/78
[2020-12-30 15:12] VITALS: BP 126/82
[~2021-01-06 12:57] MED LIST changes: -CATHETER FLUSH 10 ML SYR IV PRN; -HOLD METFORMIN - RECEIVED CONTRAST 20 ML VIAL IV SCH; -IOHEXOL 350 MG/ML 100 ML (OMNIPAQUE 350) VIAL IV ONE; -NS 100 ML (IVPB) BAG IV ONE; +cefTRIAXone 1,000 MG/SWFI 10 ML IV PUSH IV ONE
[2021-01-06 13:00] VITALS: BP 131/84
== END 2021-01-06 13:25 | disposition home or self-care (01) ==
LOC: SDC 12:57
PROVIDERS: ATTEND Internal Medicine
DX: A69.20 Lyme disease, unspecified (principal)
CPT/HCPCS: 96374; 96523; 99211

== ENCOUNTER 2021-03-05 11:29 | Outpatient (CLI) | payer BC ==
[~2021-03-05 11:29] MED LIST changes: +CYCL10TA25 PO; -CYCL10TA9 PO; -cefTRIAXone 1,000 MG/SWFI 10 ML IV PUSH IV ONE
[2021-03-05 11:45] VITALS: BP 136/85
== END 2021-03-05 12:25 ==
LOC: SDC 11:29
PROVIDERS: ATTEND Internal Medicine
DX: Z45.2 Encounter for adjustment and management of vascular access device (principal)
CPT/HCPCS: 96523

== ENCOUNTER → 2021-04-14 | Outpatient (CLI) | payer BC ==
[~2021-04-14] VITALS: Wt 90.0 kg
[2021-04-14 12:40] VITALS: BP 124/82
== END ==
LOC: SDC 12:28
PROVIDERS: ATTEND Internal Medicine
DX: Z45.2 Encounter for adjustment and management of vascular access device (principal)
CPT/HCPCS: 96365; 96523

== ENCOUNTER → 2021-05-26 | Outpatient (CLI) | payer BC ==
[2021-05-26 12:30] VITALS: BP 124/76
== END ==
LOC: SDC 12:16
PROVIDERS: ATTEND Internal Medicine
DX: Z45.2 Encounter for adjustment and management of vascular access device (principal)
CPT/HCPCS: 96523

== ENCOUNTER → 2021-07-07 | Outpatient (CLI) | payer BC ==
[2021-07-07 12:40] VITALS: BP 128/79
== END ==
LOC: SDC 12:26
PROVIDERS: ATTEND Internal Medicine
DX: Z45.2 Encounter for adjustment and management of vascular access device (principal)
CPT/HCPCS: 96523

== ENCOUNTER → 2021-08-20 | Outpatient (CLI) | payer BC ==
[2021-08-20 12:58] VITALS: BP 129/82
== END ==
LOC: SDC 12:49
PROVIDERS: ATTEND Internal Medicine
DX: Z45.2 Encounter for adjustment and management of vascular access device (principal)
CPT/HCPCS: 96523

== ENCOUNTER → 2021-09-30 | Outpatient (CLI) | payer BC ==
[2021-09-30 13:30] VITALS: BP 112/78
== END ==
LOC: SDC 13:14
PROVIDERS: ATTEND Internal Medicine
DX: A69.20 Lyme disease, unspecified (principal)
CPT/HCPCS: 96523

== ENCOUNTER → 2021-10-22 | Outpatient (CLI) | payer BC ==
--- NOTE | 2021-10-22 13:41 | Diagnostic Imaging Report ---
Indication: Routine screening. Comparison is made with prior mammograms 10/05/2020 and 10/03/2019. 2-D and 3-D bilateral screening mammography was performed with CAD. Scattered fibroglandular densities are identified bilaterally. The parenchymal pattern is stable. No mass or malignant appearing microcalcifications are seen. Left axilla is unremarkable. The right axilla contains an Ngbrhz-m-Ibeo hub. IMPRESSION: BI-RADS Category 1 No mammographic features suspicious for malignancy are identified. ACR BI-RADS Category 1: Negative. Result letter will be mailed to the patient. Note: At least 10% of breast cancer is not imaged by mammography. Dictated by: Dictated on workstation # [id number]
== END ==
LOC: RAD 10:32
PROVIDERS: ATTEND Internal Medicine
DX: Z12.31 Encounter for screening mammogram for malignant neoplasm of breast (principal)
CPT/HCPCS: 77063; 77067

== ENCOUNTER → 2021-11-11 | Day surgery (SDC) | payer BC ==
[~2021-11-11] VITALS: Ht 175.3 cm; Wt 90.0 kg
[2021-11-11 13:42] VITALS: BP 113/79
== END | disposition home or self-care (01) ==
LOC: SDC 13:20
PROVIDERS: ATTEND Internal Medicine
DX: A69.20 Lyme disease, unspecified (principal); Z45.2 Encounter for adjustment and management of vascular access device
CPT/HCPCS: 96523

== ENCOUNTER → 2021-12-22 | Outpatient (CLI) | payer BC ==
--- NOTE | 2021-12-22 08:43 | Diagnostic Imaging Report ---
PROCEDURE: MR imaging cervical spine without contrast. TECHNIQUE: Multiplanar, multisequence MR imaging of the cervical spine was performed without contrast. INDICATION: Cervical neck pain COMPARISON: 08/30/2016. FINDINGS: The cervical spinal curvature and alignment are unremarkable. Vertebral body heights and disc spaces are maintained. There is mild annular bulging of the C5-C6 disc without significant stenosis. There is a small left paramedian protrusion of the C6-C7 disc without significant stenosis. Otherwise, no focal disc protrusion or stenosis is identified. There is no abnormal signal within the cervical spinal cord and no marrow signal abnormality is seen to indicate a fracture. IMPRESSION: Continued mild C5-C6 and C6-C7 degenerative disc disease without evidence of acute cervical spinal abnormality or adverse change. Dictated by: Dictated on workstation # [id number]
== END ==
LOC: RAD 08:00
PROVIDERS: ATTEND Pediatrics
DX: M50.322 Other cervical disc degeneration at C5-C6 level (principal); G43.909 Migraine, unspecified, not intractable, without status migrainosus
CPT/HCPCS: 72141

== ENCOUNTER → 2021-12-22 | Outpatient (CLI) | payer BC ==
[2021-12-22 12:13] VITALS: BP 126/90
== END ==
LOC: SDC 11:58
PROVIDERS: ATTEND Internal Medicine
DX: Z45.2 Encounter for adjustment and management of vascular access device (principal); A69.20 Lyme disease, unspecified
CPT/HCPCS: 96523

== ENCOUNTER → 2022-02-02 | Outpatient (CLI) | payer BC ==
[~2022-02-02] VITALS: Ht 175.3 cm; Wt 90.0 kg
[2022-02-02 12:30] VITALS: BP 133/81
== END ==
LOC: SDC 12:00
PROVIDERS: ATTEND Internal Medicine
DX: Z45.2 Encounter for adjustment and management of vascular access device (principal)
CPT/HCPCS: 96523

== ENCOUNTER → 2022-03-22 | Outpatient (CLI) | payer BC ==
[~2022-03-22] VITALS: Ht 175.2 cm; Wt 90.0 kg
[~2022-03-22] MED LIST changes: +ASPI81TA16 PO; +BUSP30TA2 PO; +DULO60CA7 PO; +LACT1CAP74 PO; +LEVO88CA4 PO; +LIOT5TAB10 PO; +MV-M1TAB57 PO; +NADO20TA3 PO; +NYST50002 PO; +PANT40TA52 PO; +SMTR50T PO; +TOPI50TA13 PO; +VITA-212 PO; -VITA-272 PO
== END | disposition home or self-care (01) ==
LOC: PREOP 05:33
PROVIDERS: ATTEND Podiatrist Foot & Ankle Surgery
DX: Z01.818 Encounter for other preprocedural examination (principal)

== ENCOUNTER → 2022-03-23 | Outpatient (CLI) | payer BC ==
[~2022-03-23] VITALS: Ht 175.3 cm; Wt 90.0 kg
[2022-03-23 13:30] VITALS: BP 0/0
== END ==
LOC: SDC 11:58
PROVIDERS: ATTEND Internal Medicine
DX: Z45.2 Encounter for adjustment and management of vascular access device (principal)
CPT/HCPCS: 96523

== ENCOUNTER 2022-03-28 06:08 | Day surgery (SDC) | payer BC ==
[2022-03-28] VITALS (11 sets, daily range): BP systolic 114–130; BP diastolic 74–87
[~2022-03-28] VITALS: Ht 175.2 cm; Wt 90.0 kg
[2022-03-28] MEDS ORDERED: ceFAZolin INJECTION 1,000 MG in NS (IVPB) 50 ML IV ONE (06:15)
[2022-03-28] MEDS ORDERED: LACTATED RINGERS 1,000 ML IV PRN (06:15)
[2022-03-28] MEDS ORDERED: CATHETER FLUSH 10 ML SYR IVP PRN (06:45)
[2022-03-28] MEDS ORDERED: ONDANSETRON 4 MG/2 ML (SDV) Z0FRAN ONE (07:15)
[2022-03-28] MEDS ORDERED: SEVOFLURANE (ULTANE) 15 ML INHAL SOLN ONE ×2 (07:15→09:34)
[2022-03-28] MEDS ORDERED: proPOfol 200 MG/20 ML (DIPRIVAN) VIAL IV ONE (07:15)
[2022-03-28] MEDS ORDERED: fentaNYL INJ 100 MCG/2 ML AMP ONE (07:15)
[2022-03-28] MEDS ORDERED: LIDOCAINE PF 2% 5 ML (XYLOCAINE) VIAL ONE (07:15)
[2022-03-28] MEDS ORDERED: MIDAZOLAM 2 MG/2 ML (VERSED) VIAL ONE (07:15)
[2022-03-28] MEDS ORDERED: BUPIVACAINE 0.5% 30 ML (SENSORCAINE) VIAL ONE (07:24)
--- NOTE | 2022-03-28 07:44 | Progress Note-Pre Operative ---
Pre-Operative Progress Note Date of Available H&P: Mar 28, 2022 Date H&P Reviewed: Mar 28, 2022 Time H&P Reviewed: 07:43 Pre-Operative Diagnosis: Hallux Valgus, 2nd Hammertoe, left foot JAIME SINGLETON DPM Mar 28, 2022 07:44
[2022-03-28] MEDS ORDERED: BUPIVACAINE 0.5% 30 ML (SENSORCAINE) VIAL INJ ONE (08:23)
--- NOTE | 2022-03-28 09:42 | Progress Note-Post Operative ---
Post-Operative Progess Note Surgeon (s)/Retail Loan Originator Assistant (s) Surgeon JAIME SINGLETON DPM Retail Loan Originator Assistant: none Pre-Operative Diagnosis Hallux Valgus, 2nd Hammertoe, left foot Post-Operative Diagnosis Same Procedure & Operative Findings Date of Procedure 03/28/22 Procedure Performed/Findings Jose bunionectomy, 2nd toe reduction of hammertoe, left Anesthesia Type General Estimated Blood Loss Estimated blood loss (mL): Minimal Specimens/Packing Specimens Removed none JAIME SINGLETON DPM Mar 28, 2022 09:42
--- NOTE | 2022-03-28 09:43 | Anesthesia-General Post-Op ---
General Patient Condition Mental Status/LOC: Same as Preop Cardiovascular: Satisfactory Nausea/Vomiting: Absent Respiratory: Satisfactory Pain: Controlled Complications: Absent Post Op Complications Complications None Follow Up Care/Instructions Patient Instructions None needed. Anesthesia/Patient Condition Patient Condition Patient is doing well, no complaints, stable vital signs, no apparent adverse anesthesia problems. No complications reported per nursing. MAC MORFIN CRNA Mar 28, 2022 09:43
[2022-03-28] MEDS ORDERED: ACHD5005 PO (09:44)
[2022-03-28] MEDS ORDERED: CEPH500C PO (09:44)
[2022-03-28] MEDS ORDERED: morphine INJ 10 MG/ML 1ML (SYR OR VIAL) IVP ONE (09:45)
[2022-03-28] MEDS ORDERED: LACTATED RINGERS 1,000 ML IV SCH (09:45)
[2022-03-28] MEDS ORDERED: HYDROmorphone 2 MG/ML VIAL (DILAUDID) IV ONE (09:45)
[2022-03-28] MEDS ORDERED: ONDANSETRON 4 MG/2 ML (SDV) Z0FRAN IVP PRN (09:45)
[2022-03-28] MEDS ORDERED: HYDROcodone/APAP 5 MG/325 MG (LORTAB) TAB PO PRN (09:45)
[2022-03-28] MEDS ORDERED: MEPERIDINE (DEMEROL) INJ 50 MG/ML IVP ONE (09:45)
--- NOTE | 2022-03-28 11:40 | Physical Therapy Ortho Eval ---
PT Orthopedic Evaluation Type of Surgery Hallux Valgus, 2nd Hammertoe, left foot Prior Level of Function Current Living Status: Spouse Locomotion (Upon Admit): Independent Established Durable Medical Eq: Crutches Subjective Subjective Patient in bed pre tx, agrees to PT, has no pain, her left foot is still numb. Entry Into Home: Stairs Without Railing Steps Into Home: 3 Motor Control Motor Control: Motor Control WNL ROM ROM: WFL Transfer SCALE: Activities may be completed with or without assistive devices. 2-Mnlnjvzgvq-ymchfmf completes the activity by him/herself with no assistance from a helper. 5-Set-up or Clean-up Assistance-helper sets up or cleans up; patient completes activity. [place] assists only prior to or following the activity. 4-Supervision or Touching Assistance-helper provides verbal cues and/or touching/steadying and/or contact guard assistance as patient completes activity. Assistance may be provided throughout the activity or intermittently. 3-Partial/Moderate Assistance-helper does LESS THAN HALF the effort. [place] lifts, holds or supports trunk or limbs, but provides less than half the effort. 2-Substantial/Maximal Assistance-helper does MORE THAN HALF the effort. [place] lifts or holds trunk or limbs and provides more than half the effort. 6-Fhbfesrry-vfaxbx does ALL the effort. Patient does none of the effort to c omplete the activity. Or, the assistance of 2 or more helpers is required for the patient to complete the activity. If activity was not attempted, code reason: 7-Patient Refused. 9-Not Applicable-not attempted and the patient did not perform the activity before the current illness, exacerbation or injury. 10-Not Attempted due to Environmental Limitations-(lack of equipment, weather restraints, etc.). 88-Not Attempted due to Medical Conditions or Safety Concerns. Transfers (B, C, W/C) (QC): 4 Gait Right Lower Extremity: Right Weight Bearing Status RLE: Full Weight Bearing Left Lower Extremity: Left Weight Bearing Status LLE: Partial Weight Bearing Other Weight Bearing Inst.: Use crutches for partial weight bearing, left foot Summary/Comments Patient ambulated 40' with axillary crutches with CGA, cues for safety and direction, patient was not able to go up and down a step using crutches due to unsteadiness. Patient states she will have 2 men to help her go up her steps, instructed patient on how to do this safely. Patient has an order for partial weight bearing, patient states the doctor told her to not bear any weight on her left foot, NWB performed. Treatment Rendered Treatment: Therapeutic Exercises, Gait Train, Step Train Exercise Instruction: Quad Sets, Heel Slides, Ankle Pumps Assessment/Goals Goal Time Frame: 1 Visit Understands HEP: Yes Safe Ambulation: Yes Plan Treatment Plan: Discharge PT/Family Agrees to Plan: Yes Time Time In: 1110 Time Out: 1121 Total Billed Treatment Time: 11 Billed Treatment Time 1 visit EVL 11' JAYDEN NEWELL PT Mar 28, 2022 11:40
--- NOTE | 2022-03-28 16:24 | Diagnostic Imaging Report ---
Indication: Left foot surgery. Time of Exam: 10:23 AM Two views of the left foot demonstrate a pin transfixing the DIP joint of the 2nd toe. There is a small cerclage wire within the proximal phalanx of the great toe. Overall alignment is anatomic. Midfoot and hindfoot are unremarkable. IMPRESSION: Postoperative changes, as described. Dictated by: Dictated on workstation # [id number]
--- NOTE | 2022-03-28 18:08 | OPERATIVE REPORT ---
DATE OF SERVICE: 03/28/2022 SURGEON: Jasmin Delarosa DPM PREOPERATIVE DIAGNOSES: 1. Hallux abductovalgus, left. 2. Hammer digit syndrome, second digit, left foot. POSTOPERATIVE DIAGNOSES: 1. Hallux abductovalgus, left. 2. Hammer digit syndrome, second digit, left foot. PROCEDURES: 1. Modified Blair bunionectomy, left. 2. Reduction of hammertoe, left second digit. WOUND CLASS: Clean. ANESTHESIA: General. HEMOSTASIS: Pneumatic thigh tourniquet at 250 mmHg. INDICATIONS: This 56-year-old female presents complaining of a painful left foot. Conservative therapy has met with unsatisfactory results and the patient is agreeable to surgical intervention after risks and complications were discussed at length. No guarantees were extended. The patient is willing to proceed. DESCRIPTION OF PROCEDURE: The patient was brought back to the operating table and placed in secure supine position. Appropriate time-out was performed. A 10 mL of 1:1 mixture of 1% Xylocaine and 0.5% Marcaine was utilized for a Daily block as well as local infusion to the second digit, left foot. A pneumatic thigh tourniquet was placed on the left lower extremity with several layers padding. The left foot was then prepped and draped in normal sterile manner. The left foot was then elevated and allowed to exsanguinate after which the tourniquet was inflated to 250 mmHg. Attention was then directed to the dorsal aspect of the first metatarsophalangeal joint where a 5 cm longitudinal linear incision was created from just proximal to the metatarsophalangeal joint to the interphalangeal joint of the hallux. The incision was deepened in the same plane with great care to identify and retract all vital neurovascular structures. Only necessary blood vessels were cauterized as encountered. The incision was deepened down to the capsular tissue of the first metatarsophalangeal joint where a longitudinal capsulotomy was performed. Capsular tissue was reflected and the medial eminence of the first metatarsal head was exposed and resected utilizing power sagittal saw. The dorsal eminence to the first metatarsal head was also resected with a power sagittal saw and further contoured and smoothed with a power rasp. There was articular damage noted to the dorsal medial aspect of the first metatarsal head where an approximately 7 x 3 mm area of full-thickness degeneration of the hyaline cartilage was identified. This was fenestrated with a 1.5 mm drill followed by removal of the loose articular cartilage. The wound was flushed with copious amounts of normal saline. Attention was then directed to the proximal phalanx of the hallux where subperiosteal dissection was carried out. Utilizing a power sagittal saw, a wedge bone was resected with the base, medial and lateral cortices attempted to be held intact. Two co pilot holes were created at the dorsal medial aspect of the osteotomy allowing a 28-gauge monofilament wire to pass through these co pilot holes securing the osteotomy in a closed position. Excellent bony apposition and fixation was appreciated at this time. Next, blunt dissection was carried out into the first intermetatarsal space where a lateral capsulorrhaphy and release of the conjoined tendon of the adductor hallucis and the fibular sesamoidal ligament was performed. The wound was flushed with copious amounts of normal saline and closure was performed in layers. Deep closure was performed with 3-0 Vicryl, superficial with 4-0 Vicryl, skin closure with 4-0 Prolene in a horizontal mattress type stitch. Attention was then directed to the left second toe where significant angulation was identified at the middle phalanx and distal interphalangeal joint had a large medial eminence with overlying hyperkeratosis. An incision was created over the digit starting at the distal interphalangeal joint extending proximally to the proximal interphalangeal joint area. The incision was deepened in the same plane with great care to identify and retract all vital neurovascular structures. A medial incision to the capsule of the proximal interphalangeal joint extending over the distal interphalangeal joint was created. The medial eminence to the distal interphalangeal joint was resected with a power sagittal saw and further contoured and smoothed with hand rasp. Next, utilizing a power sagittal saw, a wedge of bone was resected with the base, medial and the lateral cortices held intact. Once the gap was closed, the angulation at the middle phalanx was greatly reduced. Next, a 0.054 K-wire was driven down the toe from distal to proximal to the proximal phalanx securing the osteotomy in a closed position. A good reduction of the angulation of the toe was appreciated this time. Prior to closure, the wound was flushed with copious amounts of normal saline. The K-wire was cut approximately 1.5 cm distal to the toe and a protective ball placed over the end of the wire. Deep closure was performed with 3-0 Vicryl, superficial with 4-0 Vicryl, skin closed with 4-0 Prolene in a horizontal mattress type stitch. Postoperative injection consisted of 10 mL of 0.5% Marcaine injected in a local infusion to the surgical sites. Postoperative dressing consisted of Betadine-soaked Adaptic, sterile 4 x 4's, sterile Kerlix, all secured with a Coban wrap. The patient tolerated the anesthesia and procedure well and was transported from the operating room to the recovery area with vital signs stable and vascular status intact to all digits of the left foot. She is to follow up in my office in 10 days period of time or sooner if necessary. She was given a prescription for Keflex and Vicodin. Job ID: [id number] DocumentID: [id number] Dictated Date: 03/28/2022 09:53:29 Road Commissioner Date: 03/28/2022 18:06:00 Dictated By: IVONNE ROBERSON
== END 2022-03-28 11:45 | disposition home or self-care (01) ==
LOC: SDC 06:08
PROVIDERS: ATTEND Podiatrist Foot & Ankle Surgery
DX: M20.12 Hallux valgus (acquired), left foot (principal); M20.42 Other hammer toe(s) (acquired), left foot; E10.9 Type 1 diabetes mellitus without complications; I95.1 Orthostatic hypotension; E03.8 Other specified hypothyroidism; A69.20 Lyme disease, unspecified
CPT/HCPCS: 73620; 87081

== ENCOUNTER → 2022-05-04 | Outpatient (CLI) | payer BC ==
[~2022-05-04] VITALS: Ht 175 cm; Wt 90.0 kg
[~2022-05-04] MED LIST changes: +CEPH500C PO
[2022-05-04 12:30] VITALS: BP 125/74
== END ==
LOC: SDC 12:01
PROVIDERS: ATTEND Internal Medicine
DX: Z45.2 Encounter for adjustment and management of vascular access device (principal)
CPT/HCPCS: 96523

== ENCOUNTER 2022-06-15 12:14 | Outpatient (CLI) | payer BC ==
[~2022-06-15] VITALS: Ht 175 cm; Wt 90.0 kg
[2022-06-15 12:45] VITALS: BP 114/94
== END 2022-06-15 12:45 | disposition home or self-care (01) ==
LOC: SDC 12:14
PROVIDERS: ATTEND Internal Medicine
DX: Z45.2 Encounter for adjustment and management of vascular access device (principal)
CPT/HCPCS: 96523

== ENCOUNTER 2022-07-27 12:25 | Outpatient (CLI) | payer BC ==
[~2022-07-27 12:25] MED LIST changes: +TOPI-241 PO; -TOPI50TA13 PO
[2022-07-27 12:35] VITALS: BP 139/87
== END 2022-07-27 13:03 | disposition home or self-care (01) ==
LOC: SDC 12:25
PROVIDERS: ATTEND Internal Medicine
DX: Z45.2 Encounter for adjustment and management of vascular access device (principal)
CPT/HCPCS: 96523

== ENCOUNTER → 2022-09-13 | Outpatient (CLI) | payer BC ==
[2022-09-13 13:25] VITALS: BP 119/77
== END ==
LOC: SDC 12:53
PROVIDERS: ATTEND Internal Medicine
DX: Z45.2 Encounter for adjustment and management of vascular access device (principal)
CPT/HCPCS: 96523

== ENCOUNTER → 2022-09-27 | Outpatient (CLI) | payer BC ==
--- NOTE | 2022-09-27 17:17 | Diagnostic Imaging Report ---
EXAMINATION: Bilateral hand, three views. HISTORY: Thumb pain. COMPARISON: None available. FINDINGS: The alignment of both hands is normal. No fracture is seen in either hand. There is mild first carpometacarpal joint osteoarthritis on the left. There is also mild right first carpometacarpal joint osteoarthritis. IMPRESSION: 1. Mild bilateral first carpometacarpal joint osteoarthritis. Dictated by: Dictated on workstation # [id number]
== END ==
LOC: RAD 11:55
PROVIDERS: ATTEND Nurse Practitioner Family
DX: M18.11 Unilateral primary osteoarthritis of first carpometacarpal joint, right hand (principal); M18.12 Unilateral primary osteoarthritis of first carpometacarpal joint, left hand

== ENCOUNTER 2022-10-04 12:19 | Outpatient (RCR) | payer BC ==
[2022-09-27 13:16] LABS: HEMATOCRIT 40 % (35-52); HEMOGLOBIN 13.6 g/dL (11.5-16.0); MEAN CORPUSCULAR HEMOGLOBIN 31 pg (25-34); MEAN CORPUSCULAR HGB CONC 34 g/dL (32-36); MEAN CORPUSCULAR VOLUME 93 fL (80-99); MEAN PLATELET VOLUME 10.4 fL (9.0-12.2); PLATELET COUNT 280 10^3/uL (130-400); WHITE BLOOD COUNT 6.7 10^3/uL (4.3-11.0)
[2022-09-27 13:19] LABS: POTASSIUM 4.2 MMOL/L (3.6-5.0)
[2022-09-27 13:20] LABS: CALCIUM 9.4 MG/DL (8.5-10.1)
[2022-09-27 13:21] LABS: TOTAL PROTEIN 6.4 GM/DL (6.4-8.2)
[2022-09-27 13:23] LABS: BILIRUBIN,TOTAL 0.4 MG/DL (0.1-1.0)
[2022-09-27 13:25] LABS: CREATININE SERUM 1.19 MG/DL (0.60-1.30)
[2022-09-27 13:55] VITALS: BP 127/79
[~2022-10-04 12:19] MED LIST changes: +cefTRIAXone 1 GM/NS 50 ML IVPB IV SCH
[2022-10-04 12:34] VITALS: BP 127/79
[2022-10-11 12:50] VITALS: BP 112/79
== END 2022-10-17 | disposition home or self-care (01) ==
LOC: SDC 12:19
PROVIDERS: ATTEND Nurse Practitioner Family
DX: Z45.2 Encounter for adjustment and management of vascular access device (principal); M19.90 Unspecified osteoarthritis, unspecified site
CPT/HCPCS: 36415; 80053; 85027; 96365; 96523

== ENCOUNTER 2022-10-18 12:18 | Outpatient (RCR) | payer BC ==
[~2022-10-18 12:18] MED LIST changes: -cefTRIAXone 1 GM/NS 50 ML IVPB IV SCH
[2022-10-18 12:37] VITALS: BP 130/81
== END 2022-11-17 | disposition home or self-care (01) ==
LOC: SDC 12:18
PROVIDERS: ATTEND Nurse Practitioner Family
DX: Z45.2 Encounter for adjustment and management of vascular access device (principal); A69.23 Arthritis due to Lyme disease
CPT/HCPCS: 99211

== ENCOUNTER → 2022-11-01 | Outpatient (CLI) | payer BC ==
--- NOTE | 2022-11-01 15:47 | Diagnostic Imaging Report ---
INDICATION: Routine screening. Comparison is made with prior mammogram from 10/22/2021 and 10/05/2020. 2-D and 3-D bilateral screening mammography was performed with CAD. Scattered fibroglandular densities are identified bilaterally. The overall breast parenchymal pattern is stable. No mass is detected. No suspicious microcalcifications are identified. Axillae are unremarkable apart from a chest wall port overlying the right axilla. IMPRESSION: No mammographic features suspicious for malignancy are identified. ACR BI-RADS Category 1: Negative. Result letter will be mailed to the patient. Note: At least 10% of breast cancer is not imaged by mammography. BI-RADS Category 1 Dictated by: Dictated on workstation # [id number]
== END ==
LOC: RAD 13:04
PROVIDERS: ATTEND Nurse Practitioner Family
DX: Z12.31 Encounter for screening mammogram for malignant neoplasm of breast (principal)
CPT/HCPCS: 77063; 77067

== ENCOUNTER 2022-12-07 13:14 | Outpatient (CLI) | payer BC ==
[~2022-12-07] VITALS: Wt 90.0 kg
[2022-12-07 13:40] VITALS: BP 113/83
== END 2022-12-07 13:40 ==
LOC: SDC 13:14
PROVIDERS: ATTEND Internal Medicine
DX: Z45.2 Encounter for adjustment and management of vascular access device (principal)
CPT/HCPCS: 96523

== ENCOUNTER 2023-01-20 12:00 | Outpatient (CLI) | payer BC ==
[~2023-01-20] VITALS: Ht 175.3 cm; Wt 88.6 kg
[2023-01-20 12:08] VITALS: BP 133/95
== END 2023-01-20 12:20 | disposition home or self-care (01) ==
LOC: SDC 12:00
PROVIDERS: ATTEND Internal Medicine
DX: Z45.2 Encounter for adjustment and management of vascular access device (principal)
CPT/HCPCS: 96523

== ENCOUNTER 2023-02-07 08:01 | Outpatient (RCR) | payer BC ==
[~2023-02-07 08:01] MED LIST changes: -TOPI-241 PO; +TOPI-83 PO
== END 2023-02-16 | disposition home or self-care (01) ==
PROVIDERS: ATTEND Internal Medicine
DX: M54.12 Radiculopathy, cervical region (principal); E11.9 Type 2 diabetes mellitus without complications